=== PATIENT | male | born 1935 | race Caucasian/White ===

== ENCOUNTER 2019-01-04 06:23 | Day surgery (SDC) | payer MEDICARE, OTHER, SELFPAY ==
[2018-12-28 15:10] VITALS: BMI 25.8
[2019-01-04] VITALS (16 sets, daily range): BP systolic 74–171; BP diastolic 38–85; PULSE 45–84; RESP 9–16; TEMP 36.1–36.7; O2SAT 88–97; BMI 25.8
--- NOTE | 2019-01-04 07:41 | PM.HP.1 ---
History of Present Illness Date Patient Seen: 01/04/19 Time Patient Seen: 07:41 Chief complaint: [id number] Hernia Repair Narrative: 83-year-old male who presents with several month history of painful left inguinal mass. The mass is present intermittently and causes him significant pain and discomfort. No pain in the right groin region. No troubles with bowel function or urination. No fever or chills. No nausea or vomiting. No abdominal pain elsewhere. Patient History Medical History Elevated cholesterol (Acute) Hypertension (Acute) Left inguinal hernia (Acute) Surgical History History of right inguinal hernia repair (Acute) History of right inguinal hernia repair (Resolved) Social History household members: spouse Smoking Status: Former smoker alcohol intake: current Family & Social History Social History: household members spouse Tobacco & Substance use: Smoking Status Former smoker alcohol intake current Meds Home Medications Medication Instructions Recorded Confirmed Type benzonatate [Tessalon Perles] 100 mg PO TIDP PRN #30 cap 12/25/17 Rx oseltamivir [Tamiflu] 75 mg OR BID #10 cap 12/25/17 Rx hydrochlorothiazide 25 mg PO DAILY 12/28/18 12/28/18 History losartan 50 mg PO DAILY 12/28/18 12/28/18 History Allergies Allergy/AdvReac Type Severity Reaction Status Date / Time WASP VENOM Allergy Intermediate HIVES Uncoded 03/03/18 12:09 Review of Systems Review of Systems All systems reviewed & are unremarkable except as noted in HPI and below Exam Vital Signs (past 8 hours): - 01/04/19 07:23 Temperature 97.4 F L Pulse Rate 72 Respiratory Rate 15 Blood Pressure 171/85 H Pulse Oximetry 95 Oxygen Delivery Method Room Air Narrative Exam Narrative: Elderly male in no acute distress. Alert oriented x3. is at the bedside Chest clear auscultation Abdomen soft, nondistended, nontender, no masses Extremities show no clubbing or cyanosis Genitourinary examination has not changed since his initial evaluation December 02, 2018. Obviously reducible left inguinal hernias present. Objective Labs Labs: No new laboratory radiographic studies for review since his initial history and physical examination. Assessment & Plan Assessment Narrative: 83-year-old male with reducible with symptomatic left inguinal hernia Plan Narrative: I reiterated recommendation for open left inguinal hernia repair with mesh. Technical details and anticipated recovery were again reviewed. Risks, benefits, and alternatives were explained once again. He agrees to proceed, and consent is placed on the chart. Orders were written. Otherwise his history and physical examination has not changed since December 02, 2018.
--- NOTE | 2019-01-04 07:44 | PM.PREOP ---
Pre-operative Note Interval Note History & Physical reviewed/Exam performed by Physician: Yes Changes to H&P: No H&P completed within 30 days and has changed as indicated here:: Patient seen and examined again today. History and physical examination updated and placed on the chart. No changes noted. Proceed with open left inguinal hernia repair today as planned.
[2019-01-04] MEDS: CEFAZOLIN 2 GM/100 ML FROZ.PIGGY IV (07:55)
[2019-01-04] MEDS: LACTATED RINGERS 1,000 ML 42 ML IV ×2 (08:23→09:20)
--- NOTE | 2019-01-04 08:29 | SUR.OPER ---
Supine on padded OR bed, head on pillow, arms secured on padded arm boards at <90 degrees abduction, legs uncrossed, safety belt at thigh, tape over blanket over lower legs. pillow under knees
[2019-01-04] MEDS: BUPIVACAINE 0.5% (PF) VIAL 30 ML INJ (08:37)
[2019-01-04] MEDS: LIDOCAINE 1% W/EPI INJ 20 ML INJ (08:38)
[2019-01-04] MEDS: CEFAZOLIN 1 GM VIAL IV (08:41)
--- NOTE | 2019-01-04 10:16 | PM.OP.1 ---
Operative Date/Time/Diagnoses Date of procedure: 01/04/19 Time of procedure: 10:16 Pre-op diagnosis: Symptomatic left inguinal hernia Post-op diagnosis: other (Symptomatic left direct and indirect inguinal hernias with sliding component containing sigmoid colon) Procedure & Clinicians Procedure: Open left inguinal hernia repair with mesh Same procedure as scheduled: Yes Indications: 83-year-old male who presented with intermittent painful left inguinal mass over the last several months. Examination and evaluation were consistent with hernia. Open repair with mesh was recommended. Surgeon: Nico Hart Click Yes if Unassisted: Yes Anesthesia Type: General Operative Notes Findings: 1. Large pantaloon hernia left inguinal canal 2. Left indirect inguinal hernia component contained sliding hernia containing sigmoid colon 3. Testicles in normal descended position at the conclusion of the case Closure Type: primary Specimen(s): none sent Prosthetic devices, grafts, tissues, transplants, or devices: Large Pro Loop polypropylene mesh plug and onlay patch placed in left inguinal canal Applied: other (Mesh as above) Estimated Blood Loss (mL): 15 Blood products transfused: none Procedure in detail: After obtaining informed consent the patient was brought to the operating room placed supine on the table. After satisfactory induction of anesthesia the left inguinal region and genitalia were prepped and draped in usual sterile fashion. SCOAP time out was performed per standard protocol. Transverse skin incision was created in the lower aspect of the inguinal canal then infiltrated with a 1 :1 mixture 1% lidocaine with 1:100,000 epinephrine and 0.5% plain Marcaine for postoperative analgesia. Skin incision was created with 10 scalpel blade followed by the Bovie for hemostasis. Dissection proceeded through the subcutaneous tissue to the external oblique fascia. A Weitlaner retractor was used to provide exposure. External oblique fascia was divided in the direction of its fibers with 15 scalpel blade followed by Metzenbaum scissors through the level the external inguinal ring. Edges of the fascia were secured with hemostats. Blunt dissection allowed for identification of the iliopubic tract, conjoined tendon, and rectus fascia. Spermatic cord and adjacent structures including the hernia were encircled bluntly with the surgeon's finger followed by a [place] drain. Meticulous blunt dissection using DeBakey forceps, Metzenbaum scissors, and the Bovie were employed to eventually isolate the indirect and direct hernia sacs as above. Great care was taken avoid injury to the spermatic cord structures. Again, findings are as above. The indirect hernia sac was opened between hemostats at the apex using Metzenbaum scissors and dissection proceeded meticulously in a sharp manner in order to liberate the sliding component of the sigmoid colon which was then reduced back into the peritoneal cavity. Great care was taken to avoid injury to the colon and adjacent structures. Once the colon was adequately reduced the hernia sac was ligated with a pursestring 2 0 silk suture then divided. The residual sac then easily reduced into the abdominal cavity. The direct hernia sac contained significant portions of preperitoneal fat which was divided between hemostats, ligated, and discarded. Two 0 silk ties were used to achieve hemostasis. The direct sac was then reduced as well. Mesh was brought onto the operative field and soaked in Ancef solution. The plug was placed into the internal inguinal ring where it was then secured with interrupted 2 0 Vicryl suture to adjacent cremasteric fibers. The onlay patch was secured in a circumferential fashion with interrupted 0 Tycron sutures. Laterally the mesh was secured to the iliopubic tract while anteriorly was secured to the conjoined tendon. Medially the mesh was secured to the rectus fascia. Tails of the mesh were brought around the spermatic cord and placed deep to the external oblique fascia with a was secured with a single 0 Tycron suture. Great care was taken avoid strangulation of the cord. The defect in the mesh easily admitted the tip of the surgeon's examining finger adjacent to the cord at the conclusion of the case. Wound was irrigated noted to be hemostatic. Spermatic cord was replaced in its usual anatomic position and the external oblique fascia was closed over the cord with running 2 0 Vicryl suture. Subcutaneous tissue was reapproximated with interrupted 3 0 Vicryl suture. Skin was closed in running subcuticular fashion with 4 0 Monocryl suture. Dermal adhesive was applied to the skin. Anesthesia was reversed the patient extubated in the operating room. He was taken recovery in stable condition. Complications: none Condition: stable Disposition: PACU Plan for aftercare: 1. Discharge home 2. Follow up in surgery Clinic in 2 weeks
[2019-01-04] MEDS: OXYCODONE/ACETAMINOPHEN 5/325 TABLET 1 TAB PO (11:22)
--- NOTE | 2019-01-04 14:00 | SUR.PHASEI ---
Late entry: Post op hypotension and bradycardia with O2 sats 88-91% on 5 liters FLOOR NURSE. Patient mostly sleeping and arousable with loud voice. Dr. Mcnulty notified of changes to patient vital signs, no action taken. Continued to monitor until patient more awake. Vital signs improved, patient easily arousable. Sat up, tolerated PO and was medicated with oral pain medication. Stable for transfer to [facility]. Report given.
== END 2019-01-04 12:23 | disposition home or self-care (01) ==
PROVIDERS: Family Provider Family Medicine; PCP Family Medicine; Visit Provider Surgery
PROC: (CPT 49505; principal; 2019-01-04 07:45)
DX: K40.90 Unilateral inguinal hernia, without obstruction or gangrene, not specified as recurrent (principal); K40.30 Unilateral inguinal hernia, with obstruction, without gangrene, not specified as recurrent; E78.00 Pure hypercholesterolemia, unspecified
CPT/HCPCS: 49505; C1781; J0690; J2405; J2704; J3010

== ENCOUNTER 2019-03-18 06:54 | Emergency (ER) | payer MEDICARE, OTHER, SELFPAY ==
[2019-03-18] VITALS (9 sets, daily range): BP systolic 113–156; BP diastolic 57–95; PULSE 56–76; RESP 14–20; TEMP 36.4–36.8; O2SAT 96–100; BMI 25.8
[2019-03-18 07:06] LABS: Add Manual Diff / Slide Review NO; Basophils Absolute Auto 100 /uL (0-100); Basophils Percent Auto 0.9 % (0-2); Eosinophils Absolute Auto 100 /uL (0-450); Eosinophils Percent Auto 1.5 % (2-4); Hematocrit 43.2 % (41-53); Hemoglobin 14.7 g/dL (13.5-17.5); Lymphocytes Absolute Auto 2200 /uL (1100-4500); Mean Corpuscular HGB Conc 34.1 % (30-36); Mean Corpuscular Hemoglobin 29.7 PG (26-34); Mean Corpuscular Volume 87.1 fL (80-100); Monocytes Absolute Auto 700 /uL (0-900); Monocytes Percent Auto 10.7 % (3-14); Neutrophils Absolute Auto 3800 /uL (1500-7000); Neutrophils Percent Auto 54.9 % (50-75); Platelet Count 282 X10^3/uL (150-400); Red Blood Cell Count 4.96 X10^6/uL (4.5-5.9); Red Cell Distribution Width 13.6 % (11.6-14.8); White Blood Cell Count 6.9 X10^3/uL (4.5-11.0)
--- NOTE | 2019-03-18 07:08 | ED.SYNCOPE ---
HPI - Syncope General Chief Complaint: Syncope Stated Complaint: Syncope Time Seen by Provider: 03/18/19 06:54 Source: patient, family and EMS Mode of arrival: EMS Limitations: no limitations History of Present Illness HPI narrative: 83-year-old nonsmoking male presents by EMS for evaluation of a syncopal episode this morning. He has medical history which is rather benign and consists really only of hypertension and occasional constipation. Patient was in his normal state of health yesterday and mowed his lawn without difficulty. He went to bed feeling fine and woke up this morning feeling fine. He and his had a conversation about how she had been feeling, she has an extensive cardiac history including defibrillator and he became worried about her and soon thereafter developed some dizziness, weakness and lightheadedness while walking and started to lower himself to the floor and then had a complete syncopal episode as witnessed by her. He suffered no injury as a consequence. He had no chest pain or palpitations. He did become sweaty, pale and weak as stated. He denies any recent travel, history of cancer or history of blood clots. He was rather quick to wake up and still had some mild symptoms when EMS transported him here but soon rebounded to his baseline MD complaint: loss of consciousness and felt faint Onset (ago): minute(s) Duration of episode: 5 -: minutes(s) Prodromal symptoms: lightheaded, diaphoresis and nausea/vomiting Witnessed: yes - by bystander Context: other Injuries sustained associated with event: none Current symptoms: none Treatments prior to arrival: none Related Data Home Medications Medication Instructions Recorded Confirmed hydrochlorothiazide 25 mg PO DAILY 12/28/18 02/16/19 losartan 50 mg PO DAILY 12/28/18 02/16/19 Previous Rx's Medication Instructions Recorded benzonatate [Tessalon Perles] 100 mg PO TIDP PRN #30 cap 12/25/17 oseltamivir [Tamiflu] 75 mg OR BID #10 cap 12/25/17 docusate sodium [Colace] 100 mg PO BID #14 cap 01/04/19 oxycodone 5 mg PO Q3H PRN #30 tab 01/04/19 sennosides [Senokot] 8.6 mg PO BEDTIME #10 tab 01/04/19 Allergies Allergy/AdvReac Type Severity Reaction Status Date / Time WASP VENOM Allergy Intermediate HIVES Uncoded 03/01/19 09:31 Review of Systems Constitutional Denies chills, Denies fever(s), Denies lethargy and Reports weakness Eyes Denies change in vision, Denies eye discharge, Denies irritation and Denies loss of vision ENT Ears, Nose, Mouth, and Throat: Denies change in voice, Denies neck pain and Denies sore throat Cardiovascular Denies chest pain, Reports syncope, Denies irregular heart rhythm, Denies lightheadedness, Denies palpitations, Denies dyspnea, Denies dyspnea on exertion and Denies orthopnea Respiratory Denies cough, Denies dyspnea, Denies dyspnea on exertion and Denies wheezing Gastrointestinal Gastrointestinal: Denies abdominal pain, Denies change in bowel habits, Denies diarrhea, Denies nausea and Denies vomiting Genitourinary Denies hematuria, Denies flank pain, Denies urinary incontinence and Denies urinary urgency Musculoskeletal Denies neck pain Integumentary/Breasts Denies pruritus, Denies erythema, Denies rash and Denies wounds Neurologic Denies confusion, Reports syncope, Denies loss of vision and Reports weakness Psychiatric Denies anxiety, Denies confusion, Denies depression, Denies homicidal ideation and Denies suicidal ideation Endocrine Denies palpitations Hematologic/Lymphatic Denies easy bruising Allergic/Immunologic Denies wheezing [facility] Medical History Elevated cholesterol (Acute) Hypertension (Acute) Left inguinal hernia (Acute) Surgical History History of right inguinal hernia repair (Acute) History of right inguinal hernia repair (Resolved) Social History household members: spouse Smoking Status: Former smoker alcohol intake: current Social History household members: spouse Smoking Status: Former smoker alcohol intake: current Exam Narrative Exam Narrative: GENERAL: 83-year-old male in no obvious significant distress, alert and oriented x3, GCS 15 HEAD: Atraumatic. Normocephalic. No temporal or scalp tenderness. EYES: Pupils equal round and reactive. Extraocular motions intact. No scleral icterus. No injection or drainage. ENT: Nose without bleeding, purulent drainage or septal hematoma. Throat without erythema, tonsillar hypertrophy or exudate. Uvula midline. Airway patent. NECK: Trachea midline. No JVD or lymphadenopathy. Supple, nontender, no meningeal signs. CARDIOVASCULAR: Regular rate and rhythm without murmurs, gallops, or rubs. RESPIRATORY: Clear to auscultation. Breath sounds equal bilaterally. No wheezes, rales, or rhonchi. GASTROINTESTINAL: Abdomen soft, non-tender, nondistended. No hepato-splenomegaly, or palpable masses. No guarding. EXTREMITIES: No clubbing, cyanosis, or edema. No joint tenderness, effusion, or edema noted. BACK: Nontender without deformity or crepitance. No flank tenderness. NEURO: AOx3. SKIN: No rash or erythema. NIH Stroke Scale 1a. LOC: Patient is alert and keenly responsive (0) 1b. LOC Questions: Patient answers both LOC questions accurately (0) 1c. LOC Commands: Patient performs both tasks correctly (0) 2. Best Gaze: Normal (0) 3. Visual: No visual loss (0) 4. Facial palsy: Normal symmetrical movements (0) 5. Motor arm: No drift (0) 6. Motor leg: No drift (0) 7. Limb ataxia: Absent (0) 8. Sensory: Normal (0) 9. Best language: No aphasia; normal (0) 10. Dysarthria: Normal (0) 11. Extinction and inattention: No abnormality (0) NIHSS: 0 Initial Vital Signs Initial Vital Signs: Vital Signs Pulse Rate 60 03/18/19 06:55 Respiratory Rate 15 03/18/19 06:55 Blood Pressure 142/73 H 03/18/19 06:55 Pulse Oximetry 96 03/18/19 06:55 Course Orders Ordered: ED Orders 03/18/19 06:30 Complete Blood Count AUTO DIFF Stat Comprehensive Metabolic Panel Stat Partial Thromboplastin Time Stat Prothrombin Time INR Stat Troponin I Stat 03/18/19 06:55 EKG-12 Lead Stat 03/18/19 07:01 D Dimer Stat 03/18/19 09:10 Trop I [Troponin I] Stat 03/18/19 09:45 CT angio chest PE protocol Stat Sodium Chloride (Normal Saline 0.9%) 1,000 mls @ 150 mls/hr IV CONT TONY Last Infusion: 03/18/19 11:30 Dose: 0 mls/hr Admin: 03/18/19 07:23 Dose: 150 mls/hr Reevaluation(s) Reevaluation #1: Patient continues to feel well, ambulates to the department without symptoms Reevaluation #2: DDimer came back significantly elevated. PE study ordered Consultations Consultation #1: call to Cardiology. History and physical discussed, as well as newly discovered RBBB. Story sounds largely orthostatic to them. They suggest stopping HCTZ and increasing Losartan to 50mg in morning and 25mg at night. Vital Signs - 8 hr 03/18/19 06:55 03/18/19 07:07 03/18/19 07:21 Temperature 97.6 F Pulse Rate 60 60 Pulse Rate [Orthostatic Lying] Pulse Rate [Orthostatic Standing] Respiratory Rate 15 15 Blood Pressure 142/73 H 142/73 H Blood Pressure [Left Arm] Blood Pressure [Orthostatic Lying] Blood Pressure [Orthostatic Standing] Pulse Oximetry 96 96 03/18/19 07:40 03/18/19 09:00 03/18/19 09:42 Temperature Pulse Rate 56 L 57 L 72 Pulse Rate [Orthostatic Lying] 62 Pulse Rate [Orthostatic Standing] 76 Respiratory Rate 17 20 Blood Pressure Blood Pressure [Left Arm] 142/57 H 136/76 Blood Pressure [Orthostatic Lying] 113/95 H Blood Pressure [Orthostatic Standing] 136/76 Pulse Oximetry 100 99 98 03/18/19 10:41 03/18/19 11:00 Temperature Pulse Rate 60 63 Pulse Rate [Orthostatic Lying] Pulse Rate [Orthostatic Standing] Respiratory Rate 14 18 Blood Pressure Blood Pressure [Left Arm] 149/75 H 145/94 H Blood Pressure [Orthostatic Lying] Blood Pressure [Orthostatic Standing] Pulse Oximetry 97 97 MDM - Syncope Lab Data Result diagrams: 03/18/19 06:30 03/18/19 06:30 Lab Results 03/18/19 03/18/19 03/18/19 Range/Units 06:30 06:30 06:30 WBC 6.9 (4.5-11.0) X10^3/uL RBC 4.96 (4.5-5.9) X10^6/uL Hgb 14.7 (13.5-17.5) g/dL Hct 43.2 (41-53) % MCV 87.1 (80-100) fL MCH 29.7 (26-34) PG MCHC 34.1 (30-36) % RDW 13.6 (11.6-14.8) % Plt Count 282 (150-400) X10^3/uL Neut % (Auto) 54.9 (50-75) % Lymph % (Auto) 32.0 (25-40) % [place] % (Auto) 10.7 (3-14) % Eos % (Auto) 1.5 L (2-4) % Baso % (Auto) 0.9 (0-2) % Neut # (Auto) 3800 (5234-4758) /uL Lymph # (Auto) 2200 (9876-2541) /uL [place] # (Auto) 700 (0-900) /uL Eos # (Auto) 100 (0-450) /uL Baso # (Auto) 100 (0-100) /uL PT 12.1 (10.1-12.7) SECONDS INR 1.1 (0.9-1.3) APTT 18 L (26.4-36.2) SECONDS D-Dimer (<230) ng/mL Sodium 133 L (137-145) mmol/L Potassium 4.1 (3.4-5.1) mmol/L Chloride 97 L (98-107) mmol/L Carbon Dioxide 26 (22-32) mmol/L BUN 22 H (9-20) mg/dL Creatinine 1.10 (0.66-1.25) mg/dL Estimated GFR > 60.0 (>60) mL/min BUN/Creatinine Ratio 20.0 (6-22) Glucose 133 H (80-110) mg/dL Calcium 8.7 (8.4-10.2) mg/dL Total Bilirubin 0.5 (0.2-1.3) mg/dL AST 40 (17-59) IU/L ALT 32 (21-72) IU/L Alkaline Phosphatase 65 (38-126) U/L Troponin I < 0.012 (0.01-0.034) ng/mL Total Protein 6.8 (6.3-8.2) g/dL Albumin 3.8 (3.5-5.0) g/dL Globulin 3.0 (1.7-4.1) g/dL Albumin/Globulin Ratio 1.3 (1.0-2.8) 03/18/19 03/18/19 Range/Units 07:01 09:10 WBC (4.5-11.0) X10^3/uL RBC (4.5-5.9) X10^6/uL Hgb (13.5-17.5) g/dL Hct (41-53) % MCV (80-100) fL MCH (26-34) PG MCHC (30-36) % RDW (11.6-14.8) % Plt Count (150-400) X10^3/uL Neut % (Auto) (50-75) % Lymph % (Auto) (25-40) % [place] % (Auto) (3-14) % Eos % (Auto) (2-4) % Baso % (Auto) (0-2) % Neut # (Auto) (3537-9088) /uL Lymph # (Auto) (7145-0444) /uL [place] # (Auto) (0-900) /uL Eos # (Auto) (0-450) /uL Baso # (Auto) (0-100) /uL PT (10.1-12.7) SECONDS INR (0.9-1.3) APTT (26.4-36.2) SECONDS D-Dimer 5235 H (<230) ng/mL Sodium (137-145) mmol/L Potassium (3.4-5.1) mmol/L Chloride (98-107) mmol/L Carbon Dioxide (22-32) mmol/L BUN (9-20) mg/dL Creatinine (0.66-1.25) mg/dL Estimated GFR (>60) mL/min BUN/Creatinine Ratio (6-22) Glucose (80-110) mg/dL Calcium (8.4-10.2) mg/dL Total Bilirubin (0.2-1.3) mg/dL AST (17-59) IU/L ALT (21-72) IU/L Alkaline Phosphatase (38-126) U/L Troponin I < 0.012 (0.01-0.034) ng/mL Total Protein (6.3-8.2) g/dL Albumin (3.5-5.0) g/dL Globulin (1.7-4.1) g/dL Albumin/Globulin Ratio (1.0-2.8) Urine Dip Bedside Urine Glucose Negative Bedside Urine Bilirubin - Negative Bedside Urine Ketone - Negative Urine Specific [place] 1.015 Bedside Urine Occult Blood - Negative Bedside Urine pH 7.5 Bedside Urine Protein - Negative Bedside Urine Urobilinogen - Negative Bedside Urine Nitrite - Negative Bedside Urine Leukocytes - Negative Esterase MDM Narrative Medical decision making narrative: Multiple etiologies for patient's symptoms considered including: [Dehydration versus orthostasis from medications versus arrhythmia versus myocardial infarction versus pulmonary embolism versus other] Patient's symptoms improved or duration of stay with above-stated therapies. Findings and discharge diagnosis discussed with patient/family followed by verbalization of understanding Return precautions discussed with patient/family whom verbalize understanding. Discharge Plan Departure Patient Disposition: Home Clinical Impression: Syncope due to orthostatic hypotension Instructions: DI for Syncope in Adults (Fainting) Activity Restrictions/Additional Instructions: *You have been diagnosed with [ syncope (passing out) ] *What to do: *Per my conversation please STOP TAKING HYDROCHLOROTHIAZIDE and begin Losartan 50mg in the morning and add an additional 25mg at night *Follow up with your primary care provider in 2-3 days, call for an appointment. Let them know you were seen in the Emergency Department and that we ask that you be seen in follow up *Return to ER if you should have any new, worsening or concerning symptoms Prescriptions: No Action benzonatate [Tessalon Perles] 100 MG capsule 100 mg PO TIDP PRNQty: 30 RF: 0 oseltamivir [Tamiflu] 75 MG capsule 75 mg OR BID Qty: 10 RF: 0 losartan 50 mg Tablet 50 mg PO DAILY RF: 0 hydrochlorothiazide 25 mg Tablet 25 mg PO DAILY RF: 0 sennosides [Senokot] 8.6 mg tablet 8.6 mg PO BEDTIME Qty: 10 RF: 1 docusate sodium [Colace] 100 mg capsule 100 mg PO BID Qty: 14 RF: 1 oxycodone 5 mg tablet 5 mg PO Q3H PRN (Reason: pain) Qty: 30 RF: 0 Referrals: Ronnie Cunha MD [Primary Care Provider] -
[2019-03-18 07:18] LABS: Alanine Aminotransferase 32 IU/L (21-72); Albumin 3.8 g/dL (3.5-5.0); Albumin Globulin Ratio 1.3 (1.0-2.8); Alkaline Phosphatase 65 U/L (38-126); Aspartate Aminotransferase 40 IU/L (17-59); Bilirubin Total 0.5 mg/dL (0.2-1.3); Blood Urea Nitrogen 22 mg/dL (9-20); Calcium 8.7 mg/dL (8.4-10.2); Carbon Dioxide 26 mmol/L (22-32); Chloride 97 mmol/L (98-107); Estimated Glomerular Filt Rate > 60.0 mL/min (>60); Glucose 133 mg/dL (80-110); Potassium 4.1 mmol/L (3.4-5.1); Sodium 133 mmol/L (137-145); Total Protein 6.8 g/dL (6.3-8.2)
[2019-03-18 07:19] LABS: HEMOLYSIS 60 (0-50)
[2019-03-18 07:20] LABS: INR 1.1 (0.9-1.3); Prothrombin Time 12.1 SECONDS (10.1-12.7)
[2019-03-18 07:23] LABS: PTT Partial Thromboplastin Tim 18 SECONDS (26.4-36.2)
[2019-03-18] MEDS: SODIUM CHLORIDE 0.9% 1,000 ML 150 ML IV (07:23)
[2019-03-18 07:30] LABS: Troponin I < 0.012 ng/mL (0.01-0.034)
[2019-03-18 09:33] LABS: D Dimer 5235 ng/mL (<230)
--- NOTE | 2019-03-18 09:45 | DI.CT.S_ITS ---
PROCEDURE: CT ANGIO CHEST PE PROTOCOL INDICATIONS: syncope, unprovoked, critical Ddimer TECHNIQUE: After the administration of intravenous contrast, 2 mm thick sections acquired from the pulmonary apices to the posterior costophrenic angles. 3-dimensional maximum intensity projection (MIP) coronal and sagittal reformats were then acquired through the thorax. For radiation dose reduction, the following was used: automated exposure control, adjustment of mA and/or kV according to patient size. COMPARISON: None. FINDINGS: Image quality: Excellent. Pulmonary arteries: Pulmonary arteries are normal in size, and demonstrate no intraluminal filling defects to suggest central pulmonary embolism. Lungs and pleura: Bilateral lower lobe atelectasis. Lungs are otherwise clear. No pleural effusions or pneumothorax. Central and peripheral airways are patent. Mediastinum: Heart size is normal, without pericardial effusion. There is calcification of the coronary vasculature. No mediastinal or hilar adenopathy. Thoracic aorta is normal in caliber and enhancement. Esophagus is normal in caliber. There is a large hiatal hernia. Bones and chest wall: No suspicious bony lesions. Ribs and thoracic spine appear intact throughout. Thyroid gland demonstrates high density right lobe nodules.. No axillary or supraclavicular adenopathy. Abdomen: Visualized portions of the upper abdomen demonstrate a subcapsular cyst within the anterior spleen measuring 23 mm, as well as scattered hepatic cysts. IMPRESSION: 1. No acute process. No pulmonary embolus. 2. Coronary artery disease. 3. Large hiatal hernia. Dictated by: Briana Haskins M.D. on 03/18/2019 at 10:15 Approved by: Briana Haskins M.D. on 03/18/2019 at 10:19
[2019-03-18 09:54] LABS: Troponin I < 0.012 ng/mL (0.01-0.034)
== END 2019-03-18 11:42 | disposition home or self-care (01) ==
PROVIDERS: Emergency Medicine; Emergency Provider Emergency Medicine; Family Provider Family Medicine; PCP Family Medicine
DX: I95.1 Orthostatic hypotension (principal); R61 Generalized hyperhidrosis; R11.2 Nausea with vomiting, unspecified
CPT/HCPCS: 36415; 36591; 71275; 80053; 81003; 84484; 85025; 85379; 85610; 85730; 93005; 96360; 96361; 99283; 99284; 99285; Q9967

== ENCOUNTER 2019-06-12 07:09 | Observation (INO) | payer MEDICARE, OTHER, SELFPAY ==
[2019-06-12] VITALS (13 sets, daily range): BP systolic 122–149; BP diastolic 64–86; PULSE 51–72; RESP 13–21; TEMP 36.4–36.9; O2SAT 95–100; BMI 25.8
--- NOTE | 2019-06-12 07:13 | DI.RAD.S_ITS ---
PROCEDURE: XR CHEST 1V INDICATIONS: syncope, weakness TECHNIQUE: One view of the chest was acquired. COMPARISON: None. FINDINGS: Surgical changes and devices: None. Lungs and pleura: Lungs are clear. No pleural effusions or pneumothorax. Mediastinum: Mediastinal contours appear normal. Heart size is normal. Bones and chest wall: No suspicious bony lesions. Overlying soft tissues appear unremarkable. IMPRESSION: No acute cardiopulmonary findings. Dictated by: Letty Capellan M.D. on 06/12/2019 at 7:04 Approved by: Letty Capellan M.D. on 06/12/2019 at 7:05
--- NOTE | 2019-06-12 07:25 | ED.SYNCOPE ---
HPI - Syncope General Chief Complaint: Syncope Stated Complaint: Weakness/Syncope Time Seen by Provider: 06/12/19 07:10 Source: patient and EMS Mode of arrival: EMS Limitations: no limitations History of Present Illness HPI narrative: 83-year-old male nonsmoker presents by EMS, with his close in tow, after having an unprovoked syncopal episode this morning. The patient has been in his normal state of health, went to bed feeling fine and awoke feeling fine. He was sitting on the couch and his had looked out the window briefly and heard something that made her turned towards the patient. He was still sitting on the couch but slumped over and completely unresponsive and sweaty. She was unable to wake him up and quickly called 911. On their arrival he was cool and diaphoretic with a blood pressure in the 80s and lethargic. By the time he arrived he was at his baseline with stable vital signs. He denies any prodromal symptoms. He denies any recent nausea, vomiting or diarrhea. He denies any recent medication or dietary change. He has had increasing fatigue since November but denies any exertional dyspnea or chest pain. denies any seizure like activity Related Data Home Medications Medication Instructions Recorded Confirmed losartan 50 mg PO BID 12/28/18 06/12/19 Allergies Allergy/AdvReac Type Severity Reaction Status Date / Time WASP VENOM Allergy Intermediate HIVES Uncoded 01/21/19 09:31 Review of Systems Constitutional Denies chills, Denies fever(s), Denies lethargy and Denies weakness Eyes Denies change in vision, Denies eye discharge, Denies irritation and Denies loss of vision ENT Ears, Nose, Mouth, and Throat: Denies change in voice, Denies neck pain and Denies sore throat Cardiovascular Denies chest pain, Reports diaphoresis, Reports syncope, Denies irregular heart rhythm, Denies lightheadedness, Denies palpitations, Denies dyspnea, Denies dyspnea on exertion and Denies orthopnea Respiratory Denies cough, Denies dyspnea, Denies dyspnea on exertion and Denies wheezing Gastrointestinal Gastrointestinal: Denies abdominal pain, Denies change in bowel habits, Denies diarrhea, Denies nausea and Denies vomiting Genitourinary Denies hematuria, Denies flank pain, Denies urinary incontinence and Denies urinary urgency Musculoskeletal Denies neck pain Integumentary/Breasts Denies pruritus, Denies erythema, Denies rash and Denies wounds Neurologic Denies confusion, Reports syncope, Denies loss of vision and Denies weakness Psychiatric Denies anxiety, Denies confusion, Denies depression, Denies homicidal ideation and Denies suicidal ideation Endocrine Denies palpitations Hematologic/Lymphatic Denies easy bruising Allergic/Immunologic Denies wheezing [facility] Medical History Elevated cholesterol (Acute) Hypertension (Acute) Left inguinal hernia (Acute) Surgical History History of right inguinal hernia repair (Acute) History of right inguinal hernia repair (Resolved) Social History household members: spouse Smoking Status: Former smoker alcohol intake: current Social History household members: spouse Smoking Status: Former smoker alcohol intake: current Exam Narrative Exam Narrative: GENERAL: 83-year-old male appears stated age HEAD: Atraumatic. Normocephalic. No temporal or scalp tenderness. EYES: Pupils equal round and reactive. Extraocular motions intact. No scleral icterus. No injection or drainage. ENT: Nose without bleeding, purulent drainage or septal hematoma. Throat without erythema, tonsillar hypertrophy or exudate. Uvula midline. Airway patent. NECK: Trachea midline. No JVD or lymphadenopathy. Supple, nontender, no meningeal signs. CARDIOVASCULAR: Regular rate and rhythm without murmurs, gallops, or rubs. RESPIRATORY: Clear to auscultation. Breath sounds equal bilaterally. No wheezes, rales, or rhonchi. GASTROINTESTINAL: Abdomen soft, non-tender, nondistended. No hepato-splenomegaly, or palpable masses. No guarding. EXTREMITIES: No clubbing, cyanosis, or edema. No joint tenderness, effusion, or edema noted. BACK: Nontender without deformity or crepitance. No flank tenderness. NEURO: AOx3. SKIN: No rash or erythema. Initial Vital Signs Initial Vital Signs: Vital Signs Temperature 97.5 F L 06/12/19 07:21 Pulse Rate 51 L 06/12/19 07:21 Respiratory Rate 18 06/12/19 07:21 Blood Pressure 122/64 06/12/19 07:21 Pulse Oximetry 95 06/12/19 07:21 Course Orders Ordered: ED Orders 06/12/19 07:13 XR chest 1V Stat 06/12/19 07:16 B Type Natriuretic Peptide Stat Complete Blood Count AUTO DIFF Stat Comprehensive Metabolic Panel Stat Magnesium Stat Prolactin Stat Troponin & CK Cardiac Panel Stat 06/12/19 07:18 EKG-12 Lead Stat 06/12/19 08:28 EKG-12 Lead Stat 06/12/19 09:19 CT head/brain wo con Stat 06/12/19 10:16 Education, smoking cessation ONGOING 06/12/19 10:17 Consult to Discharge Planning Routine Consult to Physical Therapy Evaluate & Treat 06/12/19 10:18 EC echo doppler complete Stat Acetaminophen (Tylenol) 650 mg PO Q6HR PRN PRN Reason: As Needed for Fever/Mild Pain Al Hydrox/Mg Hydrox/Simethicone (Maalox Plus) 30 ml PO Q6HR PRN PRN Reason: Dyspepsia Bisacodyl (Dulcolax) 10 mg NM DAILY PRN PRN Reason: Constipation Calcium Carbonate (Tums) 1,000 mg PO Q4HR PRN PRN Reason: Dyspepsia Enoxaparin Sodium (Lovenox) 40 mg SUBCUT DAILY TONY Magnesium Hydroxide (Milk Of Magnesia) 30 ml PO DAILY PRN PRN Reason: Constipation Ondansetron HCl (Zofran) 4 mg IV Q8HR PRN PRN Reason: Nausea And Vomiting Sodium Chloride (Normal Saline 0.9% Flush) 10 ml IV BID TONY Sodium Chloride (Normal Saline 0.9% Flush) 10 ml IV PRN PRN PRN Reason: Flush Discontinued Medications Sodium Chloride (Normal Saline 0.9%) 1,000 mls @ 1,000 mls/hr IV BOLUS ONE Stop: 06/12/19 08:12 Last Admin: 06/12/19 09:28 Dose: Not Given Consultations Consultation #1: call to cardio at [facility], discussed case. Recommend admission, telemetry, echo. No need for transfer. Patient has an upcoming appointment with Dr. Mehta Time: 08:50 Consultation #2: call to hospitalist, happy to accept Time: 09:48 Vital Signs - 8 hr 06/12/19 07:21 06/12/19 08:27 06/12/19 09:16 Temperature 97.5 F L Pulse Rate 51 L 59 L Pulse Rate [Orthostatic Lying] 53 L Pulse Rate [Orthostatic Sitting] 57 L Respiratory Rate 18 13 Blood Pressure 122/64 Blood Pressure [Left Arm] 137/71 Blood Pressure [Orthostatic Lying] 149/66 H Blood Pressure [Orthostatic Sitting] 139/68 Pulse Oximetry 95 97 06/12/19 09:56 06/12/19 10:26 06/12/19 10:32 Temperature Pulse Rate 62 60 66 Pulse Rate [Orthostatic Lying] Pulse Rate [Orthostatic Sitting] Respiratory Rate 21 13 18 Blood Pressure 139/86 Blood Pressure [Left Arm] 138/73 133/76 Blood Pressure [Orthostatic Lying] Blood Pressure [Orthostatic Sitting] Pulse Oximetry 95 100 97 06/12/19 11:06 06/12/19 11:18 Temperature 98.1 F 98.1 F Pulse Rate 59 L 59 L Pulse Rate [Orthostatic Lying] Pulse Rate [Orthostatic Sitting] Respiratory Rate 18 18 Blood Pressure 145/76 H 145/76 H Blood Pressure [Left Arm] Blood Pressure [Orthostatic Lying] Blood Pressure [Orthostatic Sitting] Pulse Oximetry 95 95 MDM - Syncope Lab Data Result diagrams: 06/12/19 07:16 06/12/19 07:16 Lab Results 06/12/19 06/12/19 Range/Units 07:16 07:16 WBC 7.7 (4.5-11.0) X10^3/uL RBC 4.69 (4.5-5.9) X10^6/uL Hgb 14.1 (13.5-17.5) g/dL Hct 41.4 (41-53) % MCV 88.4 (80-100) fL MCH 30.1 (26-34) PG MCHC 34.1 (30-36) % RDW 13.3 (11.6-14.8) % Plt Count 303 (150-400) X10^3/uL Neut % (Auto) 60.5 (50-75) % Lymph % (Auto) 27.6 (25-40) % Gibson % (Auto) 9.3 (3-14) % Eos % (Auto) 1.5 L (2-4) % Baso % (Auto) 1.1 (0-2) % Neut # (Auto) 4700 (5313-1564) /uL Lymph # (Auto) 2100 (1740-8117) /uL Gibson # (Auto) 700 (0-900) /uL Eos # (Auto) 100 (0-450) /uL Baso # (Auto) 100 (0-100) /uL Sodium 134 L (137-145) mmol/L Potassium 4.0 (3.4-5.1) mmol/L Chloride 104 (98-107) mmol/L Carbon Dioxide 24 (22-32) mmol/L BUN 21 H (9-20) mg/dL Creatinine 1.10 (0.66-1.25) mg/dL Estimated GFR > 60.0 (>60) mL/min BUN/Creatinine Ratio 19.1 (6-22) Glucose 133 H (80-110) mg/dL Calcium 8.4 (8.4-10.2) mg/dL Magnesium 2.0 (1.6-2.3) mg/dL Total Bilirubin 0.5 (0.2-1.3) mg/dL AST 26 (17-59) IU/L ALT 28 (21-72) IU/L Alkaline Phosphatase 70 (38-126) U/L Total Creatine Kinase 50 L (55-170) U/L CK-MB (CK-2) TNP CK-MB (CK-2) Rel Index TNP Troponin I < 0.012 (0.01-0.034) ng/mL B-Natriuretic Peptide < 100 (<100) Total Protein 6.4 (6.3-8.2) g/dL Albumin 3.5 (3.5-5.0) g/dL Globulin 2.9 (1.7-4.1) g/dL Albumin/Globulin Ratio 1.2 (1.0-2.8) Prolactin 45.6 H (3.7-17.9) ng/mL Urine Dip Bedside Urine Glucose Negative Bedside Urine Bilirubin - Negative Bedside Urine Ketone +/- 5 Urine Specific [place] 1.010 Bedside Urine Occult Blood - Negative Bedside Urine pH 8.5 Bedside Urine Protein +/- 15 Bedside Urine Urobilinogen - Negative Bedside Urine Nitrite - Negative Bedside Urine Leukocytes - Negative Esterase Imaging Data Chest x-ray: Radiologist's impression: [address] [address] XRay Report Signed Patient: Jaron Zayas EMR#: [id number] : 7Acct:[id number] Age/Sex: 83 / MDate of Service: 06/12/19 Loc: ED Accession Number: [id number] Procedure: XR chest 1V Ordering Provider: Dayday Epstein D.O. PROCEDURE: XR CHEST 1V INDICATIONS: syncope, weakness TECHNIQUE: One view of the chest was acquired. COMPARISON: None. FINDINGS: Surgical changes and devices: None. Lungs and pleura: Lungs are clear. No pleural effusions or pneumothorax. Mediastinum: Mediastinal contours appear normal. Heart size is normal. Bones and chest wall: No suspicious bony lesions. Overlying soft tissues appear unremarkable. IMPRESSION: No acute cardiopulmonary findings. Dictated by: Letty Capellan M.D. on 06/12/2019 at 7:04 Approved by: Letty Capellan M.D. on 06/12/2019 at 7:05 CT scan - head: Radiologist's impression: Jaron Zayas E 83 M [address] [place] [address] CT Scan Report Signed Patient: Jaron Zayas EMR#: [id number] : 7Acct:[id number] Age/Sex: 83 / MDate of Service: 06/12/19 Loc: ED Accession Number: [id number] Procedure: CT head/brain wo con Ordering Provider: Dayday Epstein D.O. PROCEDURE: CT HEAD/BRAIN WO CON INDICATIONS: unprovoked syncope vs. new onset seizure, mass? TECHNIQUE: Noncontrast 4.5 mm thick angled axial sections acquired from the foramen magnum to the vertex, with coronal and sagittal reformats. For radiation dose reduction, the following was used: automated exposure control, adjustment of mA and/or kV according to patient size. COMPARISON: None. FINDINGS: Image quality: Excellent. CSF spaces: Basal cisterns are patent. No extra-axial fluid collections. The ventricles are symmetric in size and shape. Brain: No intracranial bleeds or masses. There is cerebral volume loss for age, with resultant ventricular and sulcal prominence. There are moderate periventricular and deep white matter chronic small vessel ischemic changes. There are multiple small left chronic appearing basal ganglia lacunar infarcts. There is intracranial internal carotid artery atherosclerosis. Skull and face: Calvarium and visualized facial bones appear intact, without suspicious lesions. Sinuses: Visualized sinuses and mastoids are clear. IMPRESSION: 1. No acute intracranial findings. 2. Findings consistent with chronic microvascular ischemic changes and old lacunar infarcts. Dictated by: Letty Capellan M.D. on 06/12/2019 at 8:42 Approved by: Letty Capellan M.D. on 06/12/2019 at 8:43 ECG Data Attestation: I personally reviewed and interpreted this ECG as follows: Prior ECG tracings: available for review Interpretation: Sinus bradycardia, rate 50. Right bundle branch block, QRS 156, P are 194. No ectopy, unchanged from prior, March 18, 2019 MDM Narrative Medical decision making narrative: 83-year-old male with history of hypertension hyperlipidemia presents with unprovoked syncope. He was diaphoretic with and with hypotension on EMS arrival. Return to baseline by arrival. Seizure considered, but thought less likely given lack of characteristic presentation and normal head CT. Cardiac etiology considered, need admission with workup. Dehydration/orthostasis considered, but thought less likely given lack of provocation. Discharge Plan Departure Patient Disposition: Admitted as Observation Clinical Impression: Atypical syncope Discharge Date/Time: 06/12/19 11:00 Interventions: ED Discharge Assessment Last Done: 06/12/19 10:32 Admit Date/Time: 06/12/19 10:28 Admit Provider: Fariba Huynh
[2019-06-12 07:26] LABS: Add Manual Diff / Slide Review NO; Basophils Absolute Auto 100 /uL (0-100); Basophils Percent Auto 1.1 % (0-2); Eosinophils Absolute Auto 100 /uL (0-450); Eosinophils Percent Auto 1.5 % (2-4); Hematocrit 41.4 % (41-53); Hemoglobin 14.1 g/dL (13.5-17.5); Lymphocytes Absolute Auto 2100 /uL (1100-4500); Lymphocytes Percent Auto 27.6 % (25-40); Mean Corpuscular HGB Conc 34.1 % (30-36); Mean Corpuscular Hemoglobin 30.1 PG (26-34); Mean Corpuscular Volume 88.4 fL (80-100); Monocytes Absolute Auto 700 /uL (0-900); Monocytes Percent Auto 9.3 % (3-14); Neutrophils Absolute Auto 4700 /uL (1500-7000); Neutrophils Percent Auto 60.5 % (50-75); Platelet Count 303 X10^3/uL (150-400); Red Blood Cell Count 4.69 X10^6/uL (4.5-5.9); Red Cell Distribution Width 13.3 % (11.6-14.8); White Blood Cell Count 7.7 X10^3/uL (4.5-11.0)
[2019-06-12 07:39] LABS: Alanine Aminotransferase 28 IU/L (21-72); Albumin 3.5 g/dL (3.5-5.0); Albumin Globulin Ratio 1.2 (1.0-2.8); Alkaline Phosphatase 70 U/L (38-126); Aspartate Aminotransferase 26 IU/L (17-59); BUN Creatinine Ratio 19.1 (6-22); Bilirubin Total 0.5 mg/dL (0.2-1.3); Blood Urea Nitrogen 21 mg/dL (9-20); Calcium 8.4 mg/dL (8.4-10.2); Carbon Dioxide 24 mmol/L (22-32); Chloride 104 mmol/L (98-107); Creatine Kinase 50 U/L (55-170); Estimated Glomerular Filt Rate > 60.0 mL/min (>60); Globulin 2.9 g/dL (1.7-4.1); Glucose 133 mg/dL (80-110); HEMOLYSIS < 15 (0-50); Sodium 134 mmol/L (137-145); Total Protein 6.4 g/dL (6.3-8.2)
[2019-06-12 07:45] LABS: B Type Natriuretic Peptide < 100 (<100)
[2019-06-12 07:51] LABS: Troponin I < 0.012 ng/mL (0.01-0.034)
[2019-06-12 07:55] LABS: Prolactin 45.6 ng/mL (3.7-17.9)
--- NOTE | 2019-06-12 08:12 | ED_ITS ---
HPI - Syncope General Chief Complaint: Syncope Stated Complaint: Weakness/Syncope Time Seen by Provider: 06/12/19 07:10 Source: patient and EMS Mode of arrival: EMS Limitations: no limitations History of Present Illness HPI narrative: 83-year-old male nonsmoker presents by EMS, with his close in tow, after having an unprovoked syncopal episode this morning. The patient has been in his normal state of health, went to bed feeling fine and awoke feeling fine. He was sitting on the couch and his had looked out the window briefly and heard something that made her turned towards the patient. He was still sitting on the couch but slumped over and completely unresponsive and sweaty. She was unable to wake him up and quickly called 911. On their arrival he was cool and diaphoretic with a blood pressure in the 80s and lethargic. By the time he arrived he was at his baseline with stable vital signs. He denies any prodromal symptoms. He denies any recent nausea, vomiting or diarrhea. He denies any recent medication or dietary change. He has had increasing fatigue since November but denies any exertional dyspnea or chest pain. denies any seizure like activity Related Data Home Medications Medication Instructions Recorded Confirmed losartan 50 mg PO BID 12/28/18 06/12/19 Allergies Allergy/AdvReac Type Severity Reaction Status Date / Time WASP VENOM Allergy Intermediate HIVES Uncoded 01/21/19 09:31 Review of Systems Constitutional Denies chills, Denies fever(s), Denies lethargy and Denies weakness Eyes Denies change in vision, Denies eye discharge, Denies irritation and Denies loss of vision ENT Ears, Nose, Mouth, and Throat: Denies change in voice, Denies neck pain and Denies sore throat Cardiovascular Denies chest pain, Reports diaphoresis, Reports syncope, Denies irregular heart rhythm, Denies lightheadedness, Denies palpitations, Denies dyspnea, Denies dysp nichole on exertion and Denies orthopnea Respiratory Denies cough, Denies dyspnea, Denies dyspnea on exertion and Denies wheezing Gastrointestinal Gastrointestinal: Denies abdominal pain, Denies change in bowel habits, Denies diarrhea, Denies nausea and Denies vomiting Genitourinary Denies hematuria, Denies flank pain, Denies urinary incontinence and Denies urinary urgency Musculoskeletal Denies neck pain Integumentary/Breasts Denies pruritus, Denies erythema, Denies rash and Denies wounds Neurologic Denies confusion, Reports syncope, Denies loss of vision and Denies weakness Psychiatric Denies anxiety, Denies confusion, Denies depression, Denies homicidal ideation and Denies suicidal ideation Endocrine Denies palpitations Hematologic/Lymphatic Denies easy bruising Allergic/Immunologic Denies wheezing [facility] Medical History Elevated cholesterol (Acute) Hypertension (Acute) Left inguinal hernia (Acute) Surgical History History of right inguinal hernia repair (Acute) History of right inguinal hernia repair (Resolved) Social History household members: spouse Smoking Status: Former smoker alcohol intake: current Social History household members: spouse Smoking Status: Former smoker alcohol intake: current Exam Narrative Exam Narrative: GENERAL: 83-year-old male appears stated age HEAD: Atraumatic. Normocephalic. No temporal or scalp tenderness. EYES: Pupils equal round and reactive. Extraocular motions intact. No scleral icterus. No injection or drainage. ENT: Nose without bleeding, purulent drainage or septal hematoma. Throat without erythema, tonsillar hypertrophy or exudate. Uvula midline. Airway patent. NECK: Trachea midline. No JVD or lymphadenopathy. Supple, nontender, no meningeal signs. CARDIOVASCULAR: Regular rate and rhythm without murmurs, gallops, or rubs. RESPIRATORY: Clear to auscultation. Breath sounds equal bilaterally. No wheezes, rales, or rhonchi. GASTROINTESTINAL: Abdomen soft, non-tender, nondistended. No hepato- splenomegaly, or palpable masses. No guarding. EXTREMITIES: No clubbing, cyanosis, or edema. No joint tenderness, effusion, or edema noted. BACK: Nontender without deformity or crepitance. No flank tenderness. NEURO: AOx3. SKIN: No rash or erythema. Initial Vital Signs Initial Vital Signs: Vital Signs Temperature 97.5 F L 06/12/19 07:21 Pulse Rate 51 L 06/12/19 07:21 Respiratory Rate 18 06/12/19 07:21 Blood Pressure 122/64 06/12/19 07:21 Pulse Oximetry 95 06/12/19 07:21 Course Orders Ordered: ED Orders 06/12/19 07:13 XR chest 1V Stat 06/12/19 07:16 B Type Natriuretic Peptide Stat Complete Blood Count AUTO DIFF Stat Comprehensive Metabolic Panel Stat Magnesium Stat Prolactin Stat Troponin & CK Cardiac Panel Stat 06/12/19 07:18 EKG-12 Lead Stat 06/12/19 08:28 EKG-12 Lead Stat 06/12/19 09:19 CT head/brain wo con Stat 06/12/19 10:16 Education, smoking cessation ONGOING 06/12/19 10:17 Consult to Discharge Planning Routine Consult to Physical Therapy Evaluate & Treat 06/12/19 10:18 EC echo doppler complete Stat Acetaminophen (Tylenol) 650 mg PO Q6HR PRN PRN Reason: As Needed for Fever/Mild Pain Al Hydrox/Mg Hydrox/Simethicone (Maalox Plus) 30 ml PO Q6HR PRN PRN Reason: Dyspepsia Bisacodyl (Dulcolax) 10 mg OR DAILY PRN PRN Reason: Constipation Calcium Carbonate (Tums) 1,000 mg PO Q4HR PRN PRN Reason: Dyspepsia Enoxaparin Sodium (Lovenox) 40 mg SUBCUT DAILY TONY Magnesium Hydroxide (Milk Of Magnesia) 30 ml PO DAILY PRN PRN Reason: Constipation Ondansetron HCl (Zofran) 4 mg IV Q8HR PRN PRN Reason: Nausea And Vomiting Sodium Chloride (Normal Saline 0.9% Flush) 10 ml IV BID TONY Sodium Chloride (Normal Saline 0.9% Flush) 10 ml IV PRN PRN PRN Reason: Flush Discontinued Medications Sodium Chloride (Normal Saline 0.9%) 1,000 mls @ 1,000 mls/hr IV BOLUS ONE Stop: 06/12/19 08:12 Last Admin: 06/12/19 09:28 Dose: Not Given Consultations Consultation #1: call to cardio at [facility], discussed case. Recommend admission, telemetry, echo. No need for transfer. Patient has an upcoming appointment with Dr. Mehta Time: 08:50 Consultation #2: call to hospitalist, happy to accept Time: 09:48 Vital Signs - 8 hr 06/12/19 07:21 06/12/19 08:27 06/12/19 09:16 Temperature 97.5 F L Pulse Rate 51 L 59 L Pulse Rate [Orthostatic Lying] 53 L Pulse Rate [Orthostatic Sitting] 57 L Respiratory Rate 18 13 Blood Pressure 122/64 Blood Pressure [Left Arm] 137/71 Blood Pressure [Orthostatic Lying] 149/66 H Blood Pressure [Orthostatic Sitting] 139/68 Pulse Oximetry 95 97 06/12/19 09:56 06/12/19 10:26 06/12/19 10:32 Temperature Pulse Rate 62 60 66 Pulse Rate [Orthostatic Lying] Pulse Rate [Orthostatic Sitting] Respiratory Rate 21 13 18 Blood Pressure 139/86 Blood Pressure [Left Arm] 138/73 133/76 Blood Pressure [Orthostatic Lying] Blood Pressure [Orthostatic Sitting] Pulse Oximetry 95 100 97 06/12/19 11:06 06/12/19 11:18 Temperature 98.1 F 98.1 F Pulse Rate 59 L 59 L Pulse Rate [Orthostatic Lying] Pulse Rate [Orthostatic Sitting] Respiratory Rate 18 18 Blood Pressure 145/76 H 145/76 H Blood Pressure [Left Arm] Blood Pressure [Orthostatic Lying] Blood Pressure [Orthostatic Sitting] Pulse Oximetry 95 95 MDM - Syncope Lab Data Result diagrams: 06/12/19 07:16 06/12/19 07:16 Lab Results 06/12/19 06/12/19 Range/Units 07:16 07:16 WBC 7.7 (4.5-11.0) X10^3/uL RBC 4.69 (4.5-5.9) X10^6/uL Hgb 14.1 (13.5-17.5) g/dL Hct 41.4 (41-53) % MCV 88.4 (80-100) fL MCH 30.1 (26-34) PG MCHC 34.1 (30-36) % RDW 13.3 (11.6-14.8) % Plt Count 303 (150-400) X10^3/uL Neut % (Auto) 60.5 (50-75) % Lymph % (Auto) 27.6 (25-40) % [place] % (Auto) 9.3 (3-14) % Eos % (Auto) 1.5 L (2-4) % Baso % (Auto) 1.1 (0-2) % Neut # (Auto) 4700 (3652-2529) /uL Lymph # (Auto) 2100 (0358-8893) /uL [place] # (Auto) 700 (0-900) /uL Eos # (Auto) 100 (0-450) /uL Baso # (Auto) 100 (0-100) /uL Sodium 134 L (137-145) mmol/L Potassium 4.0 (3.4-5.1) mmol/L Chloride 104 (98-107) mmol/L Carbon Dioxide 24 (22-32) mmol/L BUN 21 H (9-20) mg/dL Creatinine 1.10 (0.66-1.25) mg/dL Estimated GFR > 60.0 (>60) mL/min BUN/Creatinine Ratio 19.1 (6-22) Glucose 133 H (80-110) mg/dL Calcium 8.4 (8.4-10.2) mg/dL Magnesium 2.0 (1.6-2.3) mg/dL Total Bilirubin 0.5 (0.2-1.3) mg/dL AST 26 (17-59) IU/L ALT 28 (21-72) IU/L Alkaline Phosphatase 70 (38-126) U/L Total Creatine Kinase 50 L (55-170) U/L CK-MB (CK-2) TNP CK-MB (CK-2) Rel Index TNP Troponin I < 0.012 (0.01-0.034) ng/mL B-Natriuretic Peptide < 100 (<100) Total Protein 6.4 (6.3-8.2) g/dL Albumin 3.5 (3.5-5.0) g/dL Globulin 2.9 (1.7-4.1) g/dL Albumin/Globulin Ratio 1.2 (1.0-2.8) Prolactin 45.6 H (3.7-17.9) ng/mL Urine Dip Bedside Urine Glucose Negative Bedside Urine Bilirubin - Negative Bedside Urine Ketone +/- 5 Urine Specific Ronda 1.010 Bedside Urine Occult Blood - Negative Bedside Urine pH 8.5 Bedside Urine Protein +/- 15 Bedside Urine Urobilinogen - Negative Bedside Urine Nitrite - Negative Bedside Urine Leukocytes - Negative Esterase Imaging Data Chest x-ray: Radiologist's impression: [address] [address] XRay Report Signed Patient: Jaron Zayas EMR#: [id number] : 7Acct:[id number] Age/Sex: 83 / MDate of Service: 06/12/19 Loc: ED Accession Number: [id number] Procedure: XR chest 1V Ordering Provider: Dayday Epstein D.O. PROCEDURE: XR CHEST 1V INDICATIONS: syncope, weakness TECHNIQUE: One view of the chest was acquired. COMPARISON: None. FINDINGS: Surgical changes and devices: None. Lungs and pleura: Lungs are clear. No pleural effusions or pneumothorax. Mediastinum: Mediastinal contours appear normal. Heart size is normal. Bones and chest wall: No suspicious bony lesions. Overlying soft tissues appear unremarkable. IMPRESSION: No acute cardiopulmonary findings. Dictated by: Letty Capellan M.D. on 06/12/2019 at 7:04 Approved by: Letty Capellan M.D. on 06/12/2019 at 7:05 CT scan - head: Radiologist's impression: Jaron Zayas E 83 M 1935 [place] [address] CT Scan Report Signed Patient: Jaron Zayas EMR#: [id number] : 1935cct:[id number] Age/Sex: 83 / MDate of Service: 06/12/19 Loc: ED Accession Number: [id number] Procedure: CT head/brain wo con Ordering Provider: Dayday Epstein D.O. PROCEDURE: CT HEAD/BRAIN WO CON INDICATIONS: unprovoked syncope vs. new onset seizure, mass? TECHNIQUE: Noncontrast 4.5 mm thick angled axial sections acquired from the foramen magnum to the vertex, with coronal and sagittal reformats. For radiation dose reduction, the following was used: automated exposure control, adjustment of mA and/or kV according to patient size. COMPARISON: None. FINDINGS: Image quality: Excellent. CSF spaces: Basal cisterns are patent. No extra-axial fluid collections. The ventricles are symmetric in size and shape. Brain: No intracranial bleeds or masses. There is cerebral volume loss for age, with resultant ventricular and sulcal prominence. There are moderate periventricular and deep white matter chronic small vessel ischemic changes. There are multiple small left chronic appearing basal ganglia lacunar infarcts. There is intracranial internal carotid artery atherosclerosis. Skull and face: Calvarium and visualized facial bones appear intact, without suspicious lesions. Sinuses: Visualized sinuses and mastoids are clear. IMPRESSION: 1. No acute intracranial findings. 2. Findings consistent with chronic microvascular ischemic changes and old lacunar infarcts. Dictated by: Letty Capellan M.D. on 06/12/2019 at 8:42 Approved by: Letty Capellan M.D. on 06/12/2019 at 8:43 ECG Data Attestation: I personally reviewed and interpreted this ECG as follows: Prior ECG tracings: available for review Interpretation: Sinus bradycardia, rate 50. Right bundle branch block, QRS 156, P are 194. No ectopy, unchanged from prior, March 18, 2019 MDM Narrative Medical decision making narrative: 83-year-old male with history of hypertension hyperlipidemia presents with unprovoked syncope. He was diaphoretic with and with hypotension on EMS arrival. Return to baseline by arrival. Seizure considered, but thought less likely given lack of characteristic presentation and normal head CT. Cardiac etiology considered, need admission with workup. Dehydration/orthostasis considered, but thought less likely given lack of provocation. Discharge Plan Departure Patient Disposition: Admitted as Observation Clinical Impression: Atypical syncope Discharge Date/Time: 06/12/19 11:00 Interventions: ED Discharge Assessment Last Done: 06/12/19 10:32 Admit Date/Time: 06/12/19 10:28 Admit Provider: Fariba Huynh
--- NOTE | 2019-06-12 09:19 | DI.CT.S_ITS ---
PROCEDURE: CT HEAD/BRAIN WO CON INDICATIONS: unprovoked syncope vs. new onset seizure, mass? TECHNIQUE: Noncontrast 4.5 mm thick angled axial sections acquired from the foramen magnum to the vertex, with coronal and sagittal reformats. For radiation dose reduction, the following was used: automated exposure control, adjustment of mA and/or kV according to patient size. COMPARISON: None. FINDINGS: Image quality: Excellent. CSF spaces: Basal cisterns are patent. No extra-axial fluid collections. The ventricles are symmetric in size and shape. Brain: No intracranial bleeds or masses. There is cerebral volume loss for age, with resultant ventricular and sulcal prominence. There are moderate periventricular and deep white matter chronic small vessel ischemic changes. There are multiple small left chronic appearing basal ganglia lacunar infarcts. There is intracranial internal carotid artery atherosclerosis. Skull and face: Calvarium and visualized facial bones appear intact, without suspicious lesions. Sinuses: Visualized sinuses and mastoids are clear. IMPRESSION: 1. No acute intracranial findings. 2. Findings consistent with chronic microvascular ischemic changes and old lacunar infarcts. Dictated by: Letty Capellan M.D. on 06/12/2019 at 8:42 Approved by: Letty Capellan M.D. on 06/12/2019 at 8:43
--- NOTE | 2019-06-12 10:18 | DI.ECHO.S_ITS ---
[place] +---------+ Hospital +---------+ : : [address] : : : : [address] : : : : Phone: [phone] Echocardiogram Report + + :Name: LOGAN LYNN Study Date: 06/13/2019 Height: 68 in : :[facility] Weight: 169 lb : : Gender: Male BSA: 1.9 m2 : :: 1935 Age: 83 yrs BP: 145/65 mmHg: :Reason For Study: SYNCOPE : : Performed By: Maxx Nicolas : :Referring: REBEL POLLARD : + + Interpretation Summary Mild concentric left ventricular hypertrophy with ejection fraction 55-60%. Grade I diastolic dysfunction. Mildly dilated left atrium. Mild mitral regurgitation. Mild tricuspid regurgitation. The ascending aorta is at the upper limits of normal in size. Procedure: A two-dimensional transthoracic echocardiogram with color flow and Doppler was performed. The study quality was technically good. There is no prior echocardiogram noted for this patient. The patient was in normal sinus rhythm during the exam. The patient had occasional PACs during the exam. Left Ventricle: The left ventricle is normal in size. There is mild concentric left ventricular hypertrophy. The ejection fraction is estimated to be 55-60%. There are no focal wall motion abnormalities. Diastolic parameters suggest a relaxation abnormality of the left ventricle, consistent with probable normal filling pressures. Right Ventricle: The right ventricle is at the upper limits of normal in size. The right ventricular systolic function is normal. Atria: The left atrium is mildly dilated. Right atrial size is normal. The interatrial septum is intact with no evidence for an atrial septal defect. Mitral Valve: The mitral valve leaflets appear mildly thickened, but open well. There is mild mitral regurgitation. Aortic Valve: The aortic valve is normal in structure and function. The aortic valve is trileaflet. The aortic valve opens well. No aortic regurgitation is present. Tricuspid Valve: The tricuspid valve is normal in structure and function. There is mild tricuspid regurgitation. The right ventricular systolic pressure is estimated to be at least 27 mmHg based on an estimated right atrial pressure of 3 mm Hg. Pulmonic Valve: The pulmonic valve is normal in structure and function. There is trace pulmonic regurgitation. Great Vessels: The aortic root is normal size. The ascending aorta is at the upper limits of normal in size. The pulmonary artery is normal size. The IVC is of normal diameter and collapses greater than 50% with a sniff. This suggests a low right atrial pressure of 3 mm Hg. Pericardium/ Pleura There is no pericardial effusion. There is no pleural effusion. MMode/2D Measurements & Calculations LVIDd: 4.7 cm LVOT diam: 2.4 cm LVIDs: 2.8 cm Ao root diam: 3.4 cm FS: 40.0 % Aortic Jxn: 2.5 cm EPSS: 0.65 cm asc Aorta Diam: 3.5 cm IVSd: 0.91 cm Ao Arch Diam (Prox Trans): 2.7 cm LVPWd: 0.94 cm LV harp. diameter/BSA (cm/m^2): 2.5 LV sys. diameter/BSA (cm/m^2): 1.5 LA dimension: 3.6 cm RA long axis: 5.4 cm LA A2 area: 20.2 cm2 RA area: 17.3 cm2 LA A4 area: 25.4 cm2 RA vol: 47.0 ml LA length (vol): 6.2 cm RA : 24.7 ml/m2 LA vol: 70.0 ml IVC diam: 1.5 cm LA vol index: 36.8 ml/m2 RVD1 (basal): 3.3 cm RVD2 (mid): 4.1 cm Doppler Measurements & Calculations Ao V2 max: 135.7 cm/sec LVOT Max Silverio: 85.1 cm/sec Ao V2 mean: 91.7 cm/sec LV V1 max P.9 mmHg Ao max P.4 mmHg LV V1 VTI: 18.7 cm Ao mean P.7 mmHg DENISE(I,D): 2.5 cm2 Ao V2 VTI: 32.5 cm DENISE(V,D): 2.7 cm2 sev ratio: 0.58 DENISE indexed to BSA (cm^2/m^2): 1.3 MV E max silverio: 44.4 cm/sec TR max silverio: 244.5 cm/sec MV A max silverio: 69.7 cm/sec TR max P.9 mmHg MV E/A: 0.64 PA V2 max: 68.2 cm/sec Med Peak E' Silverio: 2.7 cm/sec PA V2 mean: 50.9 cm/sec E/E' med: 16.5 PA mean P.1 mmHg Lat Peak E' Silverio: 2.7 cm/sec PA pr(Accel): 29.1 mmHg E/E' lat: 16.5 PA Accel Time: 0.11 sec E/e' average: 16.5 MV dec time: 0.27 sec SV(OT): 81.8 ml Electronically signed by: Tyree Isaac on Reading Physician:06/13/2019 01:40 PM
--- NOTE | 2019-06-12 12:46 | PC.NURSE ---
Admit: Arrived to room 205 approx 1100. Able to transfer from stretcher to bed, and from bed to chair (for lunch) without dizziness, lightheadedness, or syncopal episode. Denies chest pain, shortness of breath or palpitations. VSS. Alert and oriented X3. Saline locked in R AC, medic start re-dressed and site flushed well. Tele monitoring ongoing, HRR w/ rate in the mid 60's presently. Lungs CTA. Back to bed after lunch, SCD's to BLE's. Instructed to make sure he calls for staff assist getting uo /OOB. He is going to try to nap for a bit. Call light in reach, bed alarm on.
--- NOTE | 2019-06-12 13:53 | PT.IPTN ---
Physical Therapy Treatment Note M3 PT-IP Subjective Start: 06/12/19 13:52 Freq: NEEDED Status: Active Protocol: Document 06/12/19 13:52 IJS (Rec: 06/12/19 13:53 IJS [id number]) Subjective Physical Therapy Visit Type Notes Per nursing patient has been up several times to the bathroom. Request to wait for evaluation until the morning as he was just admitted today.
--- NOTE | 2019-06-12 17:31 | P.HP_ITS ---
History of Present Illness Date Patient Seen: 06/12/19 Chief complaint: Weakness/Syncope Narrative: Jaron Zayas is an 83-year-old male with a past medical history significant for CAD based on recent CTA, hypertension, hyperlipidemia in a medically treated, short-term memory impairment, probable BPH, and probable MARSHALL not on CPAP who presented via EMS after unprovoked syncopal episode. The patient reports he was at home sitting on the couch when his found him unconscious and slouched over. He recently had a syncopal episode on 03/18/19 that was thought to be related to orthostasis and his hydrochlorothiazide was discontinued and he was discharged home from ER with increased dose of losartan. He had no prodromal symptoms prior to the episode of syncope. He was not bearing down or performing any Valsalva maneuver prior to syncopal episode. He denies headache, lightheadedness or dizziness, palpitations, chest pain, nausea, vomiting, diaphoresis, or any other symptoms leading up to episode. He had no tunnel vision and did not know he was going to pass out. His reports he was very slow to come to and when he awoke he was unaware that he had passed out. We discussed any symptoms leading up to syncopal episode over the last several days or weeks for which the patient mentioned that when he is on his daily walks in the [place] he looks up at a tree he likes to look at and he gets lightheaded or dizzy during extension of neck; he has also noticed he occasionally has trouble saying what he wants to say i.e. expressive aphasia and seems to be occurring more frequently with several times in the last week. He has never had an IN or stroke. He has never had a seizure and his spouse denies convulsions or any seizure like activity. He has noticed increased BPH symptoms including urinary frequency, hesitancy, and weak stream. His reports he has substantially cut back on the amount of his fluid intake due to bothersome quality of urinary frequency. He denies any change in his urine output. He denies dysuria. He has no other complaints and denies headache, lightheadedness or dizziness, vision changes such as double vision or blurry vision, shortness of breath, chest pain, fever, chills, nausea, vomiting, dysuria, diarrhea or constipation. He was admitted for further workup of syncopal episode as this is his 2nd recurrence. PCP is Dr. Dumas at the [facility]. Gear Technician is Dr. Mehta who he was to establish care with tomorrow 06/13. Patient History Medical History (Updated 06/12/19 @ 23:53 by Fariba Huynh DO) BPH (benign prostatic hyperplasia) (Acute) Memory deficit (Acute) Elevated cholesterol (Acute) Hypertension (Acute) Left inguinal hernia (Acute) Surgical History H/O cataract removal with insertion of prosthetic lens (Acute) History of right inguinal hernia repair (Acute) History of right inguinal hernia repair (Resolved) Family History (Updated 06/12/19 @ 23:48 by Fariba Huynh DO) Mother Gall bladder disease Father No problems noted. Brother No problems noted. Social History household members: spouse Smoking Status: Former smoker alcohol intake: current Family & Social History Social History: household members spouse Prior Living Arrangements House Safety & Behavioral: Feels Safe in Current Yes Environment Been Physically Hurt or No Threatened By a Person Suicidal Ideation Description None Suicide Plan Description No Plan Tobacco & Substance use: Smoking Status Never alcohol intake current alcohol intake frequency holiday/special occasion Substance Use Type does not use Patient has been for 59 years. He has 2 sons and 1 daughter who are healthy. 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 Meds Home Medications Medication Instructions Recorded Confirmed Type losartan 50 mg PO BID 12/28/18 06/12/19 History Allergies Allergy/AdvReac Type Severity Reaction Status Date / Time WASP VENOM Allergy Intermediate HIVES Uncoded 01/21/19 09:31 Review of Systems Review of Systems A 10 system comprehensive review of systems was conducted with the patient and found to be negative except as above in the History of Present Illness. Exam Vital Signs (past 8 hours): - 06/12/19 09:56 06/12/19 10:26 06/12/19 10:32 Temperature Pulse Rate 62 60 66 Respiratory Rate 21 13 18 Blood Pressure 139/86 Blood Pressure [Left Arm] 138/73 133/76 Pulse Oximetry 95 100 97 06/12/19 11:06 06/12/19 11:18 06/12/19 15:00 Temperature 98.1 F 98.1 F Pulse Rate 59 L 59 L Respiratory Rate 18 18 Blood Pressure 145/76 H 145/76 H Blood Pressure [Left Arm] Pulse Oximetry 95 95 97 06/12/19 15:15 Temperature 98.4 F Pulse Rate 72 Respiratory Rate 18 Blood Pressure 147/83 H Blood Pressure [Left Arm] Pulse Oximetry 97 Oxygen Delivery Method Room Air Oxygen Flow Rate 0 Narrative Exam Narrative: General: Elderly gentleman lying supine comfortably in bed and in no acute distress, well-developed, well-nourished, mild cognitive impairment with short term memory recall deficit but appropriately interactive. HEENT: Normocephalic, atraumatic. External ears without defect. Pupils equal, oval, and reactive to light and accommodation. Anicteric sclerae, moist conjunctivae, and no lid lag. Oropharynx free of erythema and cobble stoning with moist mucosa. Neck: Appears slightly dry with poor tugor and full range of motion. No jugular venous distension. No bruits. No lymphadenopathy or thyromegaly. Cardiovascular: Regular rate and rhythm without murmurs, rubs, or gallops appreciated. Pulmonary: Clear to auscultation bilaterally without crackles, wheezes, or rhonchi. Normal respiratory effort without use of accessory muscles. Abdomen: Soft, bowel sounds present, nontender, nondistended. No hepatosplenomegaly or masses appreciated. Extremities: No clubbing, cyanosis, or edema. Skin: Normal temperature, poor turgor, and normal texture; no rash, ulcers, or subcutaneous nodules appreciated. Neurological: Cranial nerves grossly intact. Normal muscle strength, tone, and bulk. Reflexes, coordination, and sensory function within normal limits. Cerebellar function intake with finger to nose and heel to paiz. No Babinski. No known gait impairment. No focal neurological deficits. Psychiatric: Normal mood and affect. Alert and oriented to person, place, and time. 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 Objective Labs Result Diagrams: 06/12/19 07:16 06/12/19 07:16 Labs: Laboratory Results - last 24 hr 06/12/19 06/12/19 07:16 07:16 WBC 7.7 RBC 4.69 Hgb 14.1 Hct 41.4 MCV 88.4 MCH 30.1 MCHC 34.1 RDW 13.3 Plt Count 303 Neut % (Auto) 60.5 Lymph % (Auto) 27.6 [place] % (Auto) 9.3 Eos % (Auto) 1.5 L Baso % (Auto) 1.1 Neut # (Auto) 4700 Lymph # (Auto) 2100 [place] # (Auto) 700 Eos # (Auto) 100 Baso # (Auto) 100 Sodium 134 L Potassium 4.0 Chloride 104 Carbon Dioxide 24 BUN 21 H Creatinine 1.10 Estimated GFR > 60.0 BUN/Creatinine Ratio 19.1 Glucose 133 H Calcium 8.4 Magnesium 2.0 Total Bilirubin 0.5 AST 26 ALT 28 Alkaline Phosphatase 70 Total Creatine Kinase 50 L CK-MB (CK-2) TNP CK-MB (CK-2) Rel Index TNP Troponin I < 0.012 B-Natriuretic Peptide < 100 Total Protein 6.4 Albumin 3.5 Globulin 2.9 Albumin/Globulin Ratio 1.2 Prolactin 45.6 H Assessment & Plan Assessment & Plan narrative: Jaron Zayas is an 83-year-old male with a past medical history significant for CAD based on recent CTA, hypertension, hyperlipidemia in a medically treated, short-term memory impairment, probable BPH, and probable MARSHALL not on CPAP who presented via EMS after unprovoked syncopal episode. 1. Acute unprovoked syncopal episode, recurrent, present on admission. Resolved prior to admission. -Patient presented after syncopal episode while sitting on couch at rest. No prodrome. Previous episode of syncope and ER thought to be related to orthostatic hypotension due to hydrochlorothiazide which was discontinued. -Differential diagnosis includes: Neurological versus cardiac versus reflexive syncope. -No focal neurological deficits. No seizure activity or postictal state. Not orthostatsis. -Received 1 L of NS in the ED. Continue normal saline at 100 mL/hr x1 bag as he appears slightly dry. -EKG demonstrated sinus bradycardia with RBBB and no acute ischemic changes. Troponin negative at < 0.012. -Ordered echocardiogram, pending. -Ordered urinalysis, pending. -Continue to monitor closely on telemetry. -Continue to monitor orthostatic blood pressures closely. No orthostasis present during initial evaluation in ED. -Continue to monitor neurological status every 4 hours x 24 hours. -Ordered physical therapy evaluation treatment, pending. 2. Coronary artery disease evident by CTA and likely ASVCD, chronic, present on admission. Possibly active. -Started aspirin 81 mg daily. Patient refused statin therapy in the past due to possible liver injury side effect. Highly recommended statin therapy and discussed the 3 MOA in detail. Ordered fasting lipid panel, pending. -Ordered MR stroke protocol for intermittent and increasing expressive aphasia and lightheadedness with backward extension of neck, pending. Concern for carotid or vertebral artery stenosis or significant cerebral artery stenosis. 3. Hypertension, chronic, present on admission. Stable. -Continue losartan 50 mg twice daily. 4. Hyperlipidemia, chronic, present on admission. Possibly active. -Ordered fasting lipid panel, pending. -Patient refused statin therapy in the past due to possible liver injury side effect. Highly recommended statin therapy and discussed the 3 MOA in detail. 5. Probable BPH, chronic, present on admission. Active. -Patient has chronic urinary frequency, hesitancy, and weak stream. -Patient has been taking Super Beta prostate supplement [id number]. -Patient has not formally been medically treated for BPH which would be r elatively contraindicated for recurrent syncopal episodes. 6. 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 Active. -Patient's spouse reports he snores severely. She denies apneic episodes. -Ordered respiratory therapy evaluation and treatment for CPAP protocol. 7. 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 Stable -Likely vascular in etiology. -MR stroke protocol pending as above. -Ordered occupational therapy for SLUMS evaluation, pending. DVT prophylaxis: Lovenox/SCD's Code status: DNR/DNI Patient is admitted under observation status with expected length of stay less than 2 midnights due to severity of presenting symptoms, risk of adverse event, and complexity of treatment plan. Quality VTE Deep Vein Thrombosis/Pulmonary Embolism Present on Admission: No
[2019-06-12 18:38] LABS: Bacteria Urine None Seen; RBC Urine None Seen (0-5/HPF)
[2019-06-12 18:43] LABS: Appearance Urine UA CLEAR; Bilirubin Urine UA NEGATIVE (NEGATIVE); Color Urine UA YELLOW; Glucose Urine UA NEGATIVE (Negative); Ketones Urine UA TRACE (NEGATIVE); Leukocyte Esterase Urine UA NEGATIVE (NEGATIVE); Nitrite Urine UA NEGATIVE (Negative); Occult Blood Urine UA NEGATIVE (Negative); Protein Urine UA NEGATIVE (Negative); Urobilinogen Urine UA 0.2 E.U./dL (0.2)
[2019-06-12 18:57] LABS: Culture Indicated Urine Cult Not Indicated; Mucus Urine 1+ (Negative); WBC Urine 0-1/HPF (0-5/HPF)
--- NOTE | 2019-06-12 20:20 | DI.MRI.S_ITS ---
PROCEDURE: MR STROKE Pre- and post-contrast brain MRI, non-contrast brain MR angiogram, pre- and postcontrast neck MR angiogram INDICATIONS: expressive aphagia and syncopy episode TECHNIQUE: Brain: Noncontrast axial T1 spin echo, axial T2 fast spin echo, sagittal and axial FLAIR, coronal T2 fast spin echo, axial gradient echo, axial diffusion and ADC through the brain. After the administration of contrast, axial 3D VIBE of the cranial vasculature and brain. Brain MRA: Non-contrast 3-D time of flight MR angiogram, with multiple iphpuet-vxpcvfujq-cubwzjakdd (MIP) reformats performed. Neck MRA: Axial and sagittal TruFISP through the neck. Coronal dynamic MR angiogram during administration of contrast in the arterial and venous phases, with 3-dimenstional ublkelp-dmccxvlxi-ugveetcnob (MIP) reformats constructed from subtraction images. COMPARISON: [facility], CT, CT HEAD/BRAIN WO CON, 06/12/2019, 9:23. FINDINGS: Image quality: Excellent. BRAIN: CSF spaces: Ventricles are normal in size and shape. Basal cisterns are patent. No extra-axial fluid collections. Brain: No intracranial bleeds or mass effects. Mild cerebral loss. There is dzpodtbb-[id number] periventricular white matter chronic small vessel disease changes. 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 Diffusion weighted images show no acute ischemic insults. Brainstem appears normal. Normal intravascular flow voids are present. No abnormal intracranial enhancement. Skull and face: Calvarial marrow signal is normal. Orbits appear normal. Sinuses: Bilateral maxillary sinus mucosal thickening and mucous retention cysts. The mastoids are clear. BRAIN MR ANGIOGRAM: Anterior circulation: Intracranial internal carotid arteries are normal in size and enhancement. The flow within the paired anterior cerebral arteries is normal and symmetric. The flow within the middle cerebral arteries is normal and symmetric. The anterior communicating artery is seen. No stenoses, occlusions, or aneurysms. Posterior circulation: The visualized portions of the vertebral arteries demonstrate normal caliber, and join to form a normal appearing basilar artery. The flow within the posterior cerebral arteries is normal and symmetric. No stenoses, occlusions, or aneurysms. NECK MR ANGIOGRAM: Carotids: Great vessels demonstrate a conventional anatomy as they arise from the aortic arch. The origins of the common carotid arteries appear patent. The calibers and courses of both common carotid arteries are normal. The bifurcation regions appear normal bilaterally. The internal carotid arteries demonstrate normal course and caliber. Posterior circulation: The origins of the vertebral arteries appear patent. More superior portions of both vertebral arteries demonstrate normal course and caliber, and join to form a normal appearing basilar artery. Miscellaneous: Subclavian arteries appear patent. Pre-contrast images through the neck show no soft tissue abnormalities. IMPRESSION: BRAIN MRI: 1. No acute intracranial abnormalities. 2. Multiple foci of old lacunar infarcts in basal ganglia bilaterally. 3. Wzahtrvd-of-nazdmo chronic microvascular ischemic changes. 4. Bilateral maxillary sinus disease. BRAIN MR ANGIOGRAM: 1. No high-grade stenosis or occlusion in anterior circulations. 2. No high-grade stenosis or occlusion in posterior circulations. NECK MR ANGIOGRAM: 1. No high-grade stenosis or occlusion in cervical carotid arteries bilaterally. 2. No high-grade stenosis or occlusion in cervical vertebral arteries bilaterally. Dictated by: Kleber Aguilar M.D. on 06/13/2019 at 14:17 Approved by: Kleber Aguilar M.D. on 06/13/2019 at 14:33
[2019-06-12] MEDS: SODIUM CHLORIDE 0.9% FLUSH 10 ML IV (20:25)
--- NOTE | 2019-06-12 20:31 | PC.NURSE ---
neuro pt able to perform stroke assessment with only difficulty being finding the word for feather. slightly unsteady gait when up to ambulate but strength test is symmetrical and WNL.
--- NOTE | 2019-06-12 23:41 | PC.NURSE ---
Addendum entered by Sdynee Monteiro R.N. 06/13/19 00:13: Most recent telemetry reading is now SR with 1st degree AVB + BBB. Original Note: Patient is alert and oriented except to day of week and year. Breath sounds diminished in right LL but otherwise CTA; denies SOB and RA sat is 95%. HRR; is on telemetry with last recorded reading of SB with rate of 53 on evening shift. Denies nausea. BT present and abdomen is soft. Continent of urine with chronic urgency but denies dysuria or frequency. Able to turn self in bed. SBA to bathroom for safety; denies weakness or unsteadiness. Declines use of SCD's stating they keep him awake; reminded to ankle wave when awake and patient verbalizes understanding of purpose of SCD's and continues to decline. Fall risk score is moderate; bed alarm is on for safety. NIH score is 1 for left LE drift not down to bed. Denies pain.
[2019-06-12] MEDS: SODIUM CHLORIDE 0.9% 1,000 ML 100 ML IV (23:52)
[2019-06-13] VITALS (10 sets, daily range): BP systolic 108–189; BP diastolic 63–105; PULSE 55–69; RESP 17–19; TEMP 36.4–37; O2SAT 94–99
[2019-06-13] MEDS: LOSARTAN 50 MG TABLET PO ×3 (00:20→21:27)
[2019-06-13] MEDS: ASPIRIN EC 81 MG TABLET PO (08:59)
[2019-06-13] MEDS: ENOXAPARIN 40 MG/0.4 ML SYRINGE SUBCUT (09:08)
--- NOTE | 2019-06-13 10:02 | PT.IIE ---
Surgical History (Last Reviewed 06/12/19 @ 23:47 by Fariba Huynh DO) H/O cataract removal with insertion of prosthetic lens (Acute) History of right inguinal hernia repair (Acute) History of right inguinal hernia repair (Resolved) Medical History (Last Updated 06/12/19 @ 23:53 by Fariba Huynh DO) BPH (benign prostatic hyperplasia) (Acute) Memory deficit (Acute) Elevated cholesterol (Acute) Hypertension (Acute) Left inguinal hernia (Acute) Physical Therapy Inpatient Evaluation/Re-Eval M1 PT/OT-IP Prior Functional Status Start: 06/12/19 13:52 Freq: NEEDED Status: Active Protocol: Document 06/13/19 10:02 RS (Rec: 06/13/19 10:30 RS [id number]) Medical Review Prior Functional Status Medical History Reviewed Yes Diet/Fluid Consistency Regular Communication no known deficits Mobility and Gait ind without device Activities of Daily Living and IADL's denies needing help for self- care Prior Functional Level (Other details) takes daily walks Social History Household Members spouse Living Arrangements House Employment Status Retired M2 PT-IP Current Condition Start: 06/12/19 13:52 Freq: NEEDED Status: Active Protocol: Document 06/13/19 10:02 RS (Rec: 06/13/19 10:30 RS [id number]) Physical Therapy Current Condition Current Condition Evaluation Date 06/13/19 Treatment Diagnosis normal mobility despite reports of drop attacks Onset Date 06/11/19 M3 PT-IP Subjective Start: 06/12/19 13:52 Freq: NEEDED Status: Active Protocol: Document 06/13/19 10:02 RS (Rec: 06/13/19 10:30 RS [id number]) Subjective Physical Therapy Visit Type Type Initial Evaluation Visit Start Time 09:10 Visit Stop Time 10:02 Total Visit Minutes 52 Physical Therapy Visit Comments Patient Comments Pt really wants to find out what's causing his symptoms. Patient Goals same as above Therapy Pain Assessment Pain When Pain Assessed At Rest Pain Present Pain Present Denied Pain M4 PT-IP Mobility and Gait Start: 06/12/19 13:52 Freq: NEEDED Status: Active Protocol: Document 06/13/19 10:02 RS (Rec: 06/13/19 10:30 RS [id number]) PT-Bed Mobility Assessment Supine to Sit Supine to Sit Independent Sit to Supine Sit to Supine Independent Scooting Scooting to Edge of Bed Independent Scooting Up and Down in Bed Independent PT-Transfer Assessment Sit to and From Stand Sit to and from Stand Independent Equipment Transfer Assistive Device None Transfers Transfer Destination Bed Chair Transfer Technique walked Transfer Ability Level of Assist Independent Comments Mobility Comments Pt is completely independent for bed mobility and transfers , no occurence of any neurological changes at any point. Gait Assessment Gait Gait Assistance Required: Independent Distance (Feet) 200 Assistive Devices Assistive Device None Gait Deviations General Gait Pattern Within Normal Limits Comments Gait Comments Pt is completely indpendent with gait on level surfaces, no neurological changes at any point. Stair Climbing Assessment Evaluation Level of Assist On Stairs Independent Devices Stair Climbing Assistive Devices Left Railing Technique/Endurance Stair Climbing Direction Ascend and Descend Stair Climbing Technique Step Over Step PT-Balance Assessment Sitting Balance and Reactions Static Sitting Balance Ability Normal Dynamic Sitting Balance Ability Normal Standing Balance and Reactions Static Standing Balance Ability Normal Dynamic Standing Balance Ability Good Device Used none Functional Assessments Functional Tests Dynamic Gait Index M5 PT-IP Objective Assessments Start: 06/12/19 13:52 Freq: NEEDED Status: Active Protocol: Document 06/13/19 10:02 (Rec: 06/13/19 10:30 [id number]) Orientation Orientation/Cognition Level of Alertness Alert Orientation Name Age Birthday Month Date Year Day of Week Place Situation Language Function Ability No Deficits Noted Safety Awareness Understands Safety Issues Comments Pt did have a little intermittent difficulty following seemingly simple directions as session progressed (needed extra cues) . Gross Range of Motion Upper Extremity ROM Assessment Within Functional Limits Lower Extremity ROM Assessment Within Functional Limits Strength Upper Extremity Strength Assessment Within Functional Limits Lower Extremity Strength Assessment Within Functional Limits Other Assessments Other Other Assessments VBI testing performed in sitting - unable to elicit any symptoms with end-range extension, R/L rotation, or ext with either R/L rotation. M6 PT-IP Treatment Start: 06/12/19 13:52 Freq: NEEDED Status: Active Protocol: Document 06/13/19 10:02 RS (Rec: 06/13/19 10:30 [id number]) Physical Therapy Treatment Education Education Provided Safety Other Treatments Other Treatment Performed Pt/ educated on importance of not staying in end-range cervical positions for any length of time and instructed on alternatives/modifications that can be used instead. M7 PT-IP Assessment and Plan Start: 06/12/19 13:52 Freq: NEEDED Status: Active Protocol: Document 06/13/19 10:02 RS (Rec: 06/13/19 10:30 RS [id number]) PT Summary Assessment and Plan Potential Rehabilitation Potential Good Status of Condition at Evaluation Evolving Summary Progress Towards Goals Safe For Discharge Assessment Summary Pt presents to hospital with reports of dizziness and syncope with variable onsets ( sometimes while looking up, othertimes insidious onset in neutral). During PT session pt demonstrated completely independent mobility even when challenged with head turns and higher level balance during dynamic gait index testing (scored 22/24). VBI testing was performed in sitting and was completely negative. Pt did need extra cues at times during the session, but reports there is some level of baseline cognitive decline. Patient will be safe to discharge home with once medically cleared to do so, but does not have any acute or follow-up therapy needs. Acute PT will sign off. Frequency of Treatment Frequency Of Treatment Discharge Recommendations To Nursing Amount of Assist Needed Independent Discharge Recommendations PT Discharge Recommendations Home
--- NOTE | 2019-06-13 10:25 | PC.NURSE ---
Day shift: Pt off unit for MRI then echo cardio for approx 1.5 hours.
--- NOTE | 2019-06-13 11:51 | PC.NURSE ---
Day shift: Pt back on unit at this time. 1145.
--- NOTE | 2019-06-13 12:46 | PM.PN.1 ---
Subjective Date Patient Seen: 06/13/19 Interval history: Jaron Zayas is an 83-year-old male with a past medical history significant for CAD based on recent CTA, hypertension, hyperlipidemia in a medically treated, short-term memory impairment, probable BPH, and probable MARSHALL not on CPAP who presented via EMS after unprovoked syncopal episode. The patient is resting in bed comfortably. He has no complaints and is eager to go home. He denies headache, palpitations, lightheadedness or dizziness, shortness of breath, chest pain, abdominal pain, nausea, vomiting, fever, chills, dysuria, diarrhea or constipation. He is voiding and eliminating without difficulty. He is up ambulating without assistance. Physical therapy and occupational therapy evaluated patient and did not perceive any significant neurological deficit but mild cognitive impairment with SLUMS score [address] . Exam Vital Signs (past 8 hours): - 06/13/19 12:00 06/13/19 15:00 06/13/19 15:56 Temperature 98.3 F 97.6 F Pulse Rate 55 L 58 L Pulse Rate [Orthostatic Lying] Pulse Rate [Orthostatic Sitting] Pulse Rate [Orthostatic Standing] Respiratory Rate 17 18 Blood Pressure 164/83 H 183/105 H Blood Pressure [Orthostatic Lying] Blood Pressure [Orthostatic Sitting] Blood Pressure [Orthostatic Standing] Pulse Oximetry 98 99 98 06/13/19 16:04 Temperature Pulse Rate Pulse Rate [Orthostatic Lying] 56 L Pulse Rate [Orthostatic Sitting] 56 L Pulse Rate [Orthostatic Standing] 60 Respiratory Rate Blood Pressure Blood Pressure [Orthostatic Lying] 189/94 H Blood Pressure [Orthostatic Sitting] 176/96 H Blood Pressure [Orthostatic Standing] 172/96 H Pulse Oximetry Oxygen Delivery Method Room Air Oxygen Flow Rate 0 Narrative Exam Narrative: General: Elderly gentleman lying supine comfortably in bed and in no acute distress, well-developed, well-nourished, mild cognitive impairment with short term memory recall deficit but appropriately interactive. HEENT: Normocephalic, atraumatic. External ears without defect. Pupils equal, oval, and reactive to light and accommodation. Anicteric sclerae, moist conjunctivae, and no lid lag. Oropharynx free of erythema and cobble stoning with moist mucosa. Neck: Appears slightly dry with poor tugor and full range of motion. No jugular venous distension. No bruits. No lymphadenopathy or thyromegaly. Cardiovascular: Regular rate and rhythm without murmurs, rubs, or gallops appreciated. Pulmonary: Clear to auscultation bilaterally without crackles, wheezes, or rhonchi. Normal respiratory effort without use of accessory muscles. Abdomen: Soft, bowel sounds present, nontender, nondistended. No hepatosplenomegaly or masses appreciated. Extremities: No clubbing, cyanosis, or edema. Skin: Normal temperature, poor turgor, and normal texture; no rash, ulcers, or subcutaneous nodules appreciated. Neurological: Cranial nerves grossly intact. Normal muscle strength, tone, and bulk. Reflexes, coordination, and sensory function within normal limits. Cerebellar function intake with finger to nose and heel to paiz. No Babinski. No known gait impairment. No focal neurological deficits. Psychiatric: Normal mood and affect. Alert and oriented to person, place, and time. 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 Objective Labs Result Diagrams: 06/12/19 07:16 06/12/19 07:16 Labs: Laboratory Results - last 24 hr 06/12/19 18:17 Urine RBC None seen Urine WBC 0-1/hpf Urine Bacteria None seen Urine Mucus 1+ H Ur Culture Indicated? Cult not indicated Assessment & Plan Assessment & Plan narrative: Jaron Zayas is an 83-year-old male with a past medical history significant for CAD based on recent CTA, hypertension, hyperlipidemia in a medically treated, short-term memory impairment, probable BPH, and probable MARSHALL not on CPAP who presented via EMS after unprovoked syncopal episode. 1. Acute unprovoked syncopal episode, recurrent, present on admission. Resolved prior to admission. -Patient presented after syncopal episode while sitting on couch at rest. No prodrome. Previous episode of syncope in ER thought to be related to orthostatic hypotension due to hydrochlorothiazide which was discontinued. -Differential diagnosis includes: Neurological versus cardiac versus reflexive syncope. -No focal neurological deficits. No seizure activity or postictal state. No orthostatsis. -Received 1 L of NS in the ED. Continued normal saline at 100 mL/hr x1 bag. -EKG demonstrated sinus bradycardia with RBBB and no acute ischemic changes. Troponin negative at < 0.012. -Echocardiogram demonstrated mild concentric LVH with EF 55-60, grade 1 diastolic dysfunction, mild dilated left atrium, mild mitral regurgitation, mild tricuspid regurgitation, ascending aorta is upper limits of normal in size. -Urinalysis performed and does not appear to be infected. -Continue to monitor closely on telemetry. High concern for arrhythmia such as atrial fibrillation which would put him at a pre disposition for VTE and account for bilateral CVA. -Continue to monitor orthostatic blood pressures every shift. No orthostasis present during initial evaluation in ED. -Continue to monitor neurological status every 4 hours x 24 hours. -Continue physical, occupational and speech therapy evaluation and treatment. 2. 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 Possibly active. -Continue aspirin 81 mg daily and added Plavix 75 mg daily for stroke prevention. Patient initially refused statin therapy in the past due to possible liver injury side effect. Highly recommended statin therapy and discussed the 3 MOA in detail. Patient is now amenable to low-dose rosuvastatin 5 mg daily at bedtime. Recommend close monitoring of LFTs and myopathy in outpatient setting. -Risk stratify and ordered hemoglobin A1c and fasting lipid panel, pending. -MR stroke protocol demonstrated multiple foci of old lacunar infarcts in basal ganglia bilaterally and [id number] chronic microvascular ischemic changes. No high-grade stenosis or occlusion in cerebral or neck arteries. High concern for arrhythmia such as atrial fibrillation which would put him at a pre disposition for VTE and account for bilateral CVA. If evidence of arrhythmia will start patient on anticoagulation instead of dual anti-platelet therapy. 3. Hypertension, chronic, present on admission. Stable. -Continue losartan 50 mg twice daily. Patient continues to be increasingly hypertensive and added amlodipine 10 mg daily in addition to losartan. 4. Hyperlipidemia, chronic, present on admission. Possibly active. -Ordered fasting lipid panel, pending. -Patient refused statin therapy in the past due to possible liver injury side effect. Highly recommended statin therapy and discussed the 3 MOA in detail. Patient is now amenable to low-dose rosuvastatin 5 mg daily at bedtime. Recommend close monitoring of LFTs and myopathy in outpatient setting. 5. Probable BPH, chronic, present on admission. Active. -Patient has chronic urinary frequency, hesitancy, and weak stream. -Patient has been taking Super Beta prostate supplement [id number]. -Patient has not formally been medically treated for BPH which would be relatively contraindicated in context of recurrent syncopal episodes. 6. 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 Active. -Patient's spouse reports he snores severely. She denies apneic episodes. -Ordered respiratory therapy evaluation and treatment for CPAP protocol. 7. 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 Stable. -Vascular in etiology and likely related to bilateral CVA's. -MR stroke protocol as above. -SLUMS 24 and DVT prophylaxis: Lovenox/SCD's Code status: DNR/DNI Disposition: Patient likely to discharge tomorrow once blood pressure is better controlled and he is evaluated by speech therapy. Quality VTE Deep Vein Thrombosis/Pulmonary Embolism Present on Admission: No
--- NOTE | 2019-06-13 13:18 | CM.DANOTE ---
Addendum entered by Kralee Cotter LPN 06/13/19 14:57: Met as planned with pt and his . Introduced self and role. PT worked with PT today and was cleared for home setting as far as mobility goes.She noted that he was at his prior level of community ambulator without assistive device. She did advise him on way to avoid end range cervical extension. Pt confirms his PCP is Dr. Dumas: at the [facility]. Pt is very eager for here if he can go home today and waiting for Dr. Huynh to go over results of MRI. These are now available and JALEN Prescott has alerted Dr. Huynh to same. P: follow prn. Anticipate pt will be d/c'd today with outpt followup. His is poised to drive him home. Original Note: Discharge Planning/Care Management DCP: assessment: case received, EMR reviewed. Discussed in Team Rounds. Pt is an 83 year old male who admitted yesterday to care of hospitalist team. PCP: not listed...will follow up with pt Payer: Medicare and [employer]. Admission status: : in review. At time of Team Rounds Dr. Huynh stated that pt was admitted under OBS but that this may change. In review: per UR JALEN Godoy. Pt has been scheduled to see shank maker Dr. Mehta this morning at 0800 as a new patient: Dr. Huynh has requested that the LITERACY COACH call his clinic with update re hospital stay. Went to check in with pt after Rounds but he was off floor for MRI and ECHO was planned. P: check in to meet pt and follow for d/c issues and options as these arise. Dr. Huynh indicated in Rounds that is tests are - she will d/c pt to further outpt followup. If not, she may consult with cardiology. Advanced directive, confirm from FAMILY Start: 06/12/19 11:30 Freq: Q24H Status: Active Protocol: Document 06/13/19 11:52 YAD (Rec: 06/13/19 11:54 YAD [id number]) Advance Directive, confirm on record Time 11:52 Person contacted Patient Copy received No CM Discharge Assessment Start: 06/13/19 13:15 Freq: Status: Active Protocol: Document 06/13/19 13:16 ITV (Rec: 06/13/19 13:18 ITV [id number]) Discharge Planning Assessment Advance Directives? Yes Advance Directives on File No History Provided By Patient Medical Record Prior Living Arrangements House Household Members spouse Is patient alert and oriented? Yes: ? of mild cognitive impairment per Dr. Huynh Review Status In Process
--- NOTE | 2019-06-13 15:14 | OT.IP.EVAL ---
Past Medical History (Last Updated 06/12/19 @ 23:53 by Fariba Huynh DO) BPH (benign prostatic hyperplasia) (Acute) Memory deficit (Acute) Elevated cholesterol (Acute) Hypertension (Acute) Left inguinal hernia (Acute) Surgical History (Last Reviewed 06/12/19 @ 23:47 by Fariba Huynh DO) H/O cataract removal with insertion of prosthetic lens (Acute) History of right inguinal hernia repair (Acute) History of right inguinal hernia repair (Resolved) Occupational Therapy Inpatient Evaluation/Re-Eval M1 PT/OT-IP Prior Functional Status Start: 06/13/19 14:41 Freq: NEEDED Status: Active Protocol: Document 06/13/19 14:00 [facility] (Rec: 06/13/19 15:13 [facility] [id number]) Medical Review Prior Functional Status Medical History Reviewed Yes Diet/Fluid Consistency Regular Communication no known deficits Mobility and Gait ind without device Activities of Daily Living and IADL's denies needing help for self- care Prior Functional Level (Other details) takes daily walks Social History Household Members spouse Living Arrangements House Number of Stairs To Enter/Railing? No steps to enter. Home Environment Standard Height Toilet Walk in Shower Built-In Shower Seat Home Equipment Grab Bars Near Toilet Grab Bars In Shower Employment Status Retired M2 OT-IP Current Condition Start: 06/13/19 14:41 Freq: Status: Active Protocol: Document 06/13/19 14:00 [facility] (Rec: 06/13/19 15:13 [facility] [id number]) Occupational Therapy Current Condition Current Condition Evaluation Date 06/13/19 Treatment Diagnosis Syncopal episode Diagnosis Onset Date 06/12/19 Weight Bearing Status Weight Bearing Status Weight Bear as Tolerated M3 OT- IP Subjective and Pain Start: 06/13/19 14:41 Freq: Status: Active Protocol: Document 06/13/19 14:00 [facility] (Rec: 06/13/19 15:13 [facility] [id number]) OT- Subjective Occupational Therapy Visit Type Type Initial Evaluation Visit Start Time 13:30 Visit Stop Time 14:10 Total Visit Minutes 40 Occupational Therapy Visit Comments Patient Comments Pt agreeable to OT eval with emphasis on cognitive assessments. Patient/Caregiver Goals Pt wanting to go home. OT Pain Assessment Pain When Pain Assessed At Rest Pain Present Pain Present Denied Pain M5 OT- IP IADL's Start: 06/13/19 14:41 Freq: Status: Active Protocol: Document 06/13/19 14:00 [facility] (Rec: 06/13/19 15:13 [facility] [id number]) OT-Instrumental Activities of Daily Living Home Safety Awareness Home Safety Comments Pt states does all the bills at home. Medication Management Medication Management No Deficits Identified Money Management Money Management Caregiver Provides Assistance Landcare Facilitator Landcare Facilitator Comments Pt states does chores at home including yard work outside. Pt states recently fall over his weed eater but able to get back up. Driving Driving Comments Pt states still drives. M6 OT- IP Functional Cognition Start: 06/13/19 14:41 Freq: Status: Active Protocol: Document 06/13/19 14:00 [facility] (Rec: 06/13/19 15:13 [facility] [id number]) Cognitive Factors Limiting Selfcare Function Cognitive Ability Level of Alertness Alert Patient Orientation Name Age Birthday Month Date Year Day of Week Place Situation Attention Span Ability Capable of Focused Attention Capable of Sustained Attention Ability to Follow Commands Able to Follow One Step Commands Memory Description Short Term Impaired Working Impaired Safety Awareness Underestimates Need for Assistance Problem Solving Ability Needs Assist to Identify Solutions Executive Function Ability Unable to Filter Distractions Unable to Remember Details Cognitive Tests SLUMS Pt scored 24/30 which normal score for pt would be 27/30. Pt's score implies mild cognitive impairments. Pt having most difficulty with short term memory only able to recall 2 of 5 words, only able to name 12 animals in 1 minute and even repeating animals already named, pt able to get 3/4 questions right from paragraph read. ACL Pt scored 4.4 out of 6.0, which implies lives with someone who does a daily check on the environment and removes any safety hazzards and solves any new problems. Daily food planning, medications provided , and financial institution vice president needed. A score of 5.6 or higher indicates safe driving. Cognitive Comments Cognitive Assessment Comments Pt states still driving and even after doing cognitive assessment still feels that he can drive. Pt not able to complete [place] Making Part B, not able to recall directions and too distracted to complete drawing from number to letter . [place] Making Part B assesses mental flexibility, executive problem solving, visual attention, and a score of greater than 180 per [employer] implies someone greater chance to get into a car accident. Highly suggested no driving at this time, physician notified of results. Pt having word finding difficulties, but admits has gradually gotten worse and has to write things down often. OT- Vision and Hearing OT- Hearing Assessment OT- Hearing Assessment Hearing Impaired OT- Vision Assessment Visual Acuity Glasses All The Time Vision Assessment Comments Pt's pupils irregular shape, pt states due to cataract surgery. Able to read clock correctly and intact for visual layton. M7 OT- IP Mobility and Balance Start: 06/13/19 14:41 Freq: Status: Active Protocol: Document 06/13/19 14:00 [facility] (Rec: 06/13/19 15:13 [facility] [id number]) OT- Bed Mobility Assessment Rolling Type of Rolling Roll to Left Supine to Sit Supine to Sit Assist Independent Sit to Supine Sit to Supine Assist Independent Scooting Scooting to Edge of Bed Independent OT-Transfer Assessment Sit to and From Stand Sit to and from Stand Independent Transfers Transfer Ability Standby Assistance Technique Transfer Destination Bed Comments Mobility Comments Pt independent with bed mobility and able to walk out to the nursing stations with distant supervision. OT- Balance Assessment Sitting Balance and Reactions Static Sitting Balance Ability Normal Standing Balance and Reactions Static Standing Balance Ability Good Comments Other Balance Tests/Deviations/Treatment While testing for BUE : strength, pt tends to lean back into posterior tilt with slight lateral lean to the left. To assess higher level balance tomorrow . M8 OT- IP Objective Assessments Start: 06/13/19 14:41 Freq: Status: Active Protocol: Document 06/13/19 14:00 [facility] (Rec: 06/13/19 15:13 [facility] [id number]) OT Gross Range of Motion Upper Extremity Range of Motion Assessment Within Functional Limits OT Strength Comments Strength Comments 4/5 BUE OT- Coordination Assessment Upper Extremity Finger to Nose Test Within Functional Limits OT-Muscle Tone Assessment Muscle Tone WNL Yes M9 OT- IP Assessment and Plan Start: 06/13/19 14:41 Freq: Status: Active Protocol: Document 06/13/19 14:00 [facility] (Rec: 06/13/19 15:13 [facility] [id number]) OT Summary Assessment and Plan Potential Rehabilitation Potential Good Analytic Complexity at Evaluation Low Summary OT Impairments Functional Cognition Functional Mobility Bathing Progress Towards Goals Slow Progress due to Medical Issues Slow Progress due to Cognition Assessment Summary Pt low complexity and per pt feels like he is at his baseline, will have to confer to pt's for cognitive needs as currently suggested no driving at this time as pt having difficulty with short term memory and executive thinking and mental flexibility. Recommend home with and assist. Pending whether cogntion is baseline or not, may benefit from outpt HEALTH NURSE versus OT for memory and problem solving. Goals Dressing Goal Independent Bathing Goal Standby Assistance Shower Transfer Goal Independent Patient/Caregiver Education Goal Caregiver Independent Assisting Patient Days to Meet Goals 3 Frequency of Treatment Frequency Of Treatment Once a Day Treatment Plan OT Treatment Plan ADL Training Functional Cognition Training Functional Mobility Patient/Family Education Discharge Planning Other Treatment Recommendations and Next shower Treatment Focus Discharge Recommendations OT Discharge Recommendations Home with Assistance Other Discharge Recommendations Either outpt HEALTH NURSE or OT pending what pt's states if pt at baseline level.
[2019-06-13] MEDS: AMLODIPINE 5 MG TABLET 10 MG PO (19:34)
[2019-06-13] MEDS: CLOPIDOGREL 75 MG TABLET PO (19:34)
--- NOTE | 2019-06-13 20:34 | RT ---
ordered a cpap oren protocol and discussed this with patient. I talked to patient about setting him up on a cpap and explained the importance of using the cpap. Patient refused cpap treatment.
[2019-06-13] MEDS: ROSUVASTATIN 10 MG TABLET 5 MG PO (21:27)
[2019-06-13] MEDS: SODIUM CHLORIDE 0.9% FLUSH 10 ML IV (21:28)
--- NOTE | 2019-06-13 22:20 | PC.NURSE ---
A&O X3 with mild confusion, (patient came in hallway to look for towel in another room's cabinet) and anxious to d/c; BP elevated during this unsettled period with SBP into 180s; @ 2000, BP 151/88, Tele SR, BBB; O2 RA=99%, ls clear; patient denies dizziness with standing; Orthostatic BP: lying 189/94, sitting 176/90, standing 172/96
[2019-06-14 01:00] VITALS: BP 131/90; BP 151/93; BP 168/89; PULSE 63; PULSE 80
--- NOTE | 2019-06-14 01:26 | PC.NURSE ---
Addendum entered by Sydnee Monteiro R.N. 06/14/19 06:03: Patient has been impulsive all night. Does not remember to call for assistance and gets out of bed for a variety of reasons: toileting, having to check on my clothes etc. Patient now expressing unhappiness with having bed alarm on stating he is being falsely imprisoned. Had discussion with him about fall risk protocol and that bed alarm does not prevent him from getting out of bed but is so that staff is alerted to him getting up so that we can come and assist in order to keep him safe from falling. Patient listens but continues to disagree and stating I'm just letting you know that this is just the start of it; there may be legal proceedings. Further states he did not agree to be here so reminded why he was brought to ER and that MD felt he needed to be admitted and he and/or his decision maker would have agreed to admission at that time. States he did not agree to that. Patient calm throughout conversation but not accepting of RN's information. Coordinator, Bob, informed of conversation. Original Note: Patient initially did not recognize this RN who is his neighbor; after being told my name he then verbalized recognition. Is forgetful but otherwise oriented tonight. Breath sounds still diminished in right LL with RA sat of 96%. BP currently 168/89 with drop down to 131/90 from lying to standing. Is on telemetry with recording of SR-BBB at 0000. Denies nausea. BT present and abdomen is soft. Turns self in bed. Does not remember to call for assistance and reports 1 fall in past 3 months; impulsive and bed alarm is activated. Refusing to wear SCD's. Denies dysuria, frequency or urgency. Denies pain.
[2019-06-14 03:27] VITALS: BP 160/82; PULSE 65; RESP 20; TEMP 36.3; O2SAT 97
[2019-06-14 05:50] LABS: Add Manual Diff / Slide Review NO; Basophils Absolute Auto 100 /uL (0-100); Eosinophils Absolute Auto 100 /uL (0-450); Eosinophils Percent Auto 1.2 % (2-4); Hematocrit 43.9 % (41-53); Hemoglobin 15.2 g/dL (13.5-17.5); Lymphocytes Absolute Auto 1800 /uL (1100-4500); Lymphocytes Percent Auto 26.5 % (25-40); Mean Corpuscular HGB Conc 34.6 % (30-36); Mean Corpuscular Volume 86.8 fL (80-100); Monocytes Absolute Auto 500 /uL (0-900); Monocytes Percent Auto 7.9 % (3-14); Neutrophils Absolute Auto 4300 /uL (1500-7000); Neutrophils Percent Auto 63.4 % (50-75); Platelet Count 290 X10^3/uL (150-400); Red Blood Cell Count 5.05 X10^6/uL (4.5-5.9); Red Cell Distribution Width 13.4 % (11.6-14.8); White Blood Cell Count 6.8 X10^3/uL (4.5-11.0)
[2019-06-14 05:55] LABS: Alanine Aminotransferase 27 IU/L (21-72); Albumin 3.9 g/dL (3.5-5.0); Albumin Globulin Ratio 1.3 (1.0-2.8); Alkaline Phosphatase 80 U/L (38-126); Aspartate Aminotransferase 32 IU/L (17-59); Bilirubin Total 0.5 mg/dL (0.2-1.3); Blood Urea Nitrogen 18 mg/dL (9-20); Calcium 8.8 mg/dL (8.4-10.2); Carbon Dioxide 24 mmol/L (22-32); Chloride 104 mmol/L (98-107); Cholesterol 196 mg/dL (140-199); Estimated Glomerular Filt Rate > 60.0 mL/min (>60); Globulin 3.1 g/dL (1.7-4.1); Glucose 105 mg/dL (80-110); HDL Cholesterol 37 mg/dL (40-60); HEMOLYSIS < 15 (0-50); LDL Cholesterol Calculated 135 mg/dL (<100); Magnesium 1.9 mg/dL (1.6-2.3); Potassium 3.8 mmol/L (3.4-5.1); Sodium 138 mmol/L (137-145); Triglycerides 122 mg/dL (35-150)
[2019-06-14 06:18] LABS: Hemoglobin A1C% w Est Avg Glu 5.8 % (4.0-6.0)
[2019-06-14 07:00] VITALS: BP 129/81; BP 146/83; BP 151/84; PULSE 62; PULSE 67; PULSE 77; RESP 17; TEMP 36.3; O2SAT 96
--- NOTE | 2019-06-14 08:06 | P.DS_ITS ---
History of Present Illness Chief complaint: Weakness/Syncope Narrative: Written by myself Dr. Huynh: Jaron Zayas is an 83-year-old male with a past medical history significant for CAD based on recent CTA, hypertension, hyperlipidemia in a medically treated, short-term memory impairment, probable BPH, and probable MARSHALL not on CPAP who presented via EMS after unprovoked syncopal episode. The patient reports he was at home sitting on the couch when his found him unconscious and slouched over. He recently had a syncopal episode on 03/18/19 that was thought to be related to orthostasis and his hydrochlorothiazide was discontinued and he was discharged home from ER with increased dose of losartan. He had no prodromal symptoms prior to the episode of syncope. He was not bearing down or performing any Valsalva maneuver prior to syncopal episode. He denies headache, lightheadedness or dizziness, palpitations, chest pain, nausea, vomiting, diaphoresis, or any other symptoms leading up to episode. He had no tunnel vision and did not know he was going to pass out. His reports he was very slow to come to and when he awoke he was unaware that he had passed out. We discussed any symptoms leading up to syncopal episode over the last several days or weeks for which the patient mentioned that when he is on his daily walks in the [place] he looks up at a tree he likes to look at and he gets lightheaded or dizzy during extension of neck; he has also noticed he occasionally has trouble saying what he wants to say i.e. expressive aphasia and seems to be occurring more frequently with several times in the last week. He has never had an CO or stroke. He has never had a seizure and his spouse denies convulsions or any seizure like activity. He has noticed increased BPH symptoms including urinary frequency, hesitancy, and weak stream. His reports he has substantially cut back on the amount of his fluid intake due to bothersome quality of urinary frequency. He denies any change in his urine output. He denies dysuria. He has no other complaints and denies headache, lightheadedness or dizziness, vision changes such as double vision or blurry vision, shortness of breath, chest pain, fever, chills, nausea, vomiting, dysuria, diarrhea or constipation. He was admitted for further workup of syncopal episode as this is his 2nd recurrence. PCP is Dr. Dumas at the [facility]. Overlock Collar Setter is Dr. Mehta who he was to establish care with tomorrow 06/13. Discharge Providers Date of admission: 06/12/19 10:28 Discharge Date: 06/14/19 Consults: 06/12/19 10:17 Consult to Discharge Planning Routine Comment: Consult to Physical Therapy Evaluate & Treat Comment: Physician Instructions: Evaluate and Treat 06/13/19 09:53 Consult to Occupational Therapy Evaluate & Treat Comment: please perform SLUMS Physician Instructions: Evaluate and treat Discharge provider: Fariba Huynh DO Summary Discharge Diagnosis: 1. Acute unprovoked syncopal episode, recurrent, present on admission. Resolved prior to admission. 2. 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 Possibly active. 3. Hypertension, chronic, present on admission. Stable. 4. Hyperlipidemia, chronic, present on admission. Stable. 5. Probable BPH, chronic, present on admission. Active. 6. 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 Active. 7. 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 Stable. 8. Grade 1 diastolic dysfunction, chronic and newly diagnosed, present on admission. Stable. Hospital Course: Jaron Zayas is an 83-year-old male with a past medical history significant for CAD based on recent CTA, hypertension, hyperlipidemia in a medically treated, short-term memory impairment, probable BPH, and probable MARSHALL not on CPAP who presented via EMS after unprovoked syncopal episode. 1. Acute unprovoked syncopal episode, recurrent, present on admission. Resolved prior to admission. -Patient presented after syncopal episode while sitting on couch at rest. No prodrome. Previous episode of syncope in ER thought to be related to orthostatic hypotension due to hydrochlorothiazide which was discontinued. -Differential diagnosis includes: Probable dehydration and hypoperfusion as patient felt better after IV fluid administration versusn hypoperfusion due to hypertension with small vessel disease. Also possibly due to arrhythmia as patient is high risk versus vasovagal syncope due to BPH and urinary retention. -No focal neurological deficits. No seizure activity or postictal state. No orthostatsis. -Received 1 L of NS in the ED. Continued normal saline at 100 mL/hr x1 bag. -EKG demonstrated sinus bradycardia with RBBB and no acute ischemic changes. Troponin negative at < 0.012. -Echocardiogram demonstrated mild concentric LVH with EF 55-60, grade 1 diastol ic dysfunction, mild dilated left atrium, mild mitral regurgitation, mild tricuspid regurgitation, ascending aorta is upper limits of normal in size. -Urinalysis performed and does not appear to be infected. -Continued to monitor closely on telemetry. Patient had no ectopy other than sinus bradycardia in mid 50s. Recommended outpatient 30 day heart monitor to assess for arrhythmia. -Continued to monitor orthostatic blood pressures every shift. No orthostasis present during initial evaluation in ED or during hospitalization. -Continued to monitor neurological status closely. -Continued physical, occupational and speech therapy evaluation and treatment. Recommended outpatient speech therapy for word finding and short-term memory impairment for improved communication and safety. 2. 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 Possibly active. -Continue aspirin 81 mg daily and added Plavix 75 mg daily for stroke prevention. Patient has history of hemorrhoidal bleeding and will need to monitor closely. -Patient initially refused statin therapy in the past due to possible liver injury side effect. Highly recommended statin therapy and discussed the 3 MOA in detail. Patient is now amenable to low-dose rosuvastatin 5 mg daily at bedtime which was started and continued. Recommended close monitoring of LFTs and myopa thy in outpatient setting. -Risk stratify with hemoglobin A1c which was 5.8% and indicative of prediabetes and fasting lipid panel which was uncontrolled and demonstrated: Total cholesterol 209, triglycerides 131, LDL 141 (goal <70) and HDL 42. -MR stroke protocol demonstrated multiple foci of old lacunar infarcts in basal ganglia bilaterally and [id number] chronic microvascular ischemic changes. No high-grade stenosis or occlusion in cerebral or neck arteries. Discussed MR stroke protocol findings with radiology and bilateral CVA's are ischemic in etiology and due to microvascular disease. 3. Hypertension, chronic, present on admission. Stable. -Continued losartan 50 mg twice daily. Started and continued amlodipine 10 mg daily in addition to losartan due to persistent hypertension. 4. Hyperlipidemia, chronic, present on admission. Stable. -Fasting lipid panel which was uncontrolled and demonstrated: Total cholesterol 209, triglycerides 131, LDL 141 (goal <70) and HDL 42. -Patient refused statin therapy in the past due to possible liver injury side effect. Highly recommended statin therapy and discussed the 3 MOA in detail. Patient is now amenable to low-dose rosuvastatin 5 mg daily at bedtime which was started and continued. Recommend close monitoring of LFTs and myopathy in outpatient setting. 5. Probable BPH, chronic, present on admission. Active. -Patient has chronic urinary frequency, hesitancy, and weak stream. Patient has little PO intake of fluids due to frequency of urination. Goal fluid intake 50 oz daily. -Patient has been taking Super Beta prostate supplement [id number]. -Patient has been medically treated for BPH with tamsulosin which was likely discontinued due to orthostasis driven syncopal episode in 03/11. -Recommended urology referral to address BPH surgically as he is not a candidate for medications which are relatively contraindicated in context of recurrent syncopal episodes. 6. 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 Active. -Patient's spouse reports he snores severely. She denies apneic episodes. -Respiratory therapy consulted for evaluation and treatment of CPAP protocol but patient refused. -Highly recommended sleep study and treatment with CPAP if MARSHALL present which is undoubtedly present. 7. 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 Stable. -Vascular in etiology and likely related to bilateral CVA's. -MR stroke protocol as above. -SLUMS 24 and unable to follow instructions or perform trail making, therefore, the patient should NOT drive. 8. Grade 1 diastolic dysfunction, chronic and newly diagnosed, present on admission. Stable. -No need for diuresis currently. -Continued losartan 50 mg twice daily and amlodipine 10 mg daily. Patient is not a beta-marion candidate due to bradycardia and syncopal episodes. -Recommended referral to Cardiology for further workup of syncope, 30 day heart monitor, and follow diastolic dysfunction which per patient report is in process. Exam Vital Signs (past 8 hours): - 06/14/19 01:00 06/14/19 03:27 06/14/19 07:00 Temperature 97.4 F L 97.4 F L Pulse Rate 65 67 Pulse Rate [Orthostatic Lying] 63 62 Pulse Rate [Orthostatic Sitting] 63 67 Pulse Rate [Orthostatic Standing] 80 77 Respiratory Rate 20 17 Blood Pressure 160/82 H 151/84 H Blood Pressure [Orthostatic Lying] 168/89 H 146/83 H Blood Pressure [Orthostatic Sitting] 151/93 H 151/84 H Blood Pressure [Orthostatic Standing] 131/90 129/81 Pulse Oximetry 97 96 Oxygen Delivery Method Room Air Oxygen Flow Rate 0 Narrative Exam Narrative: General: Elderly gentleman lying supine comfortably in bed and in no acute distress, well-developed, well-nourished, mild cognitive impairment with short term memory recall deficit but appropriately interactive. HEENT: Normocephalic, atraumatic. External ears without defect. Pupils equal, oval, and reactive to light and accommodation. Anicteric sclerae, moist conjunctivae, and no lid lag. Oropharynx free of erythema and cobble stoning with moist mucosa. Neck: Supple with full range of motion. No jugular venous distension. No bruits. No lymphadenopathy or thyromegaly. Cardiovascular: Regular rate and rhythm without murmurs, rubs, or gallops appreciated. Pulmonary: Clear to auscultation bilaterally without crackles, wheezes, or rhonchi. Normal respiratory effort without use of accessory muscles. Abdomen: Soft, bowel sounds present, nontender, nondistended. No hepatosplenomegaly or masses appreciated. Extremities: No clubbing, cyanosis, or edema. Skin: Normal temperature, poor turgor, and normal texture; no rash, ulcers, or subcutaneous nodules appreciated. Neurological: Cranial nerves grossly intact. Normal muscle strength, tone, and bulk. Reflexes, coordination, and sensory function within normal limits. Cerebellar function intake with finger to nose and heel to paiz. No Babinski. No known gait impairment. No focal neurological deficits. Psychiatric: Normal mood and affect. Alert and oriented to person, place, and time. 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 Objective Labs Result Diagrams: 06/14/19 05:35 06/14/19 05:35 Labs: Laboratory Results - last 24 hr 06/14/19 06/14/19 06/14/19 05:35 05:35 05:35 WBC 6.8 RBC 5.05 Hgb 15.2 Hct 43.9 MCV 86.8 MCH 30.0 MCHC 34.6 RDW 13.4 Plt Count 290 Neut % (Auto) 63.4 Lymph % (Auto) 26.5 [place] % (Auto) 7.9 Eos % (Auto) 1.2 L Baso % (Auto) 1.0 Neut # (Auto) 4300 Lymph # (Auto) 1800 [place] # (Auto) 500 Eos # (Auto) 100 Baso # (Auto) 100 Sodium 138 Potassium 3.8 Chloride 104 Carbon Dioxide 24 BUN 18 Creatinine 0.90 Estimated GFR > 60.0 BUN/Creatinine Ratio 20.0 Glucose 105 Hemoglobin A1c 5.8 Calcium 8.8 Magnesium 1.9 Total Bilirubin 0.5 AST 32 ALT 27 Alkaline Phosphatase 80 Total Protein 7.0 Albumin 3.9 Globulin 3.1 Albumin/Globulin Ratio 1.3 Triglycerides 122 Cholesterol 196 LDL Cholesterol, Calc 135 H HDL Cholesterol 37 L Discharge Plan Discharge Plan Patient Disposition: Home Discharge comment: You are being discharged home. Please follow-up with your primary care physician, Dr. Dumas, in the next 1 week regarding your hospitalization. You have evidence of multiple old strokes. You have been continued on aspirin 81 mg daily and added plavix 75 mg daily and rosuvastatin 5 mg daily at bedtime to prevent stroke. Do not drive. The cause of your syncopal episode is undetermined and there are many possibilities. His syncopal episodes are likely related to his blood pressure either being too high or too low. Continue blood pressure control with losartan 50 mg twice daily and added amlodipine 10 mg daily for better control of his blood pressure as it was very high during his hospitalization. He likely has sleep apnea and recommend an expedited sleep study and treatment with CPAP if present as sleep apnea can cause elevated blood pressures. Also recommend a 30 day heart monitor to rule out arrhythmia. Recommend a urology referral to address his enlarged prostate and urinary frequency as medicines are contraindicated due to his syncopal episodes. Recommend a referral to cardiology to establish care for stage 1 diastolic heart failure, 30 day heart monitor to assess for arrhythmia and further workup of his syncopal episodes. Goal fluid intake per day is 50 oz (not including caffeine). Recommend outpatient Discharge Med Rec/Prescriptions Prescriptions: New clopidogrel 75 mg Tablet 75 mg PO DAILY Qty: 30 RF: 0 amlodipine [Norvasc] 5 mg Tablet 10 mg PO DAILY Qty: 60 RF: 0 aspirin 81 mg Tablet,Delayed Release (Dr/Ec) 81 mg PO DAILY Qty: 30 RF: 0 rosuvastatin 10 mg Tablet 5 mg PO BEDTIME Qty: 30 RF: 0 Continued losartan 50 mg Tablet 50 mg PO BID RF: 0 Follow up/Referrals: Anna Dumas MD [Non-Staff] - 1 Week Provider Discharge Instructions Diet: Low-fat, Low-sodium and Low-cholesterol Activity: Activity as tolerated Visit Report/Discharge Packet Instructions: DI for Syncope in Adults (Fainting), Recommendations to Help Prev ent High Blood Pressure, Heart Failure, DI for Heart Failure, DI for High Blood Pressure, DI for Obstructive Sleep Apnea -- Adult, Amlodipine, Clopidogrel (By mouth) Visit Report Forms: Stroke Signs & Symptoms Discharge Data Attending Provider: Fariba Huynh Admit Date/Time: 06/12/19 10:28 Discharges patient from system. Discharge Date/Time: 06/14/19 14:46 Quality VTE Deep Vein Thrombosis/Pulmonary Embolism Present on Admission: No
[2019-06-14] MEDS: ASPIRIN EC 81 MG TABLET PO (09:01)
[2019-06-14] MEDS: LOSARTAN 50 MG TABLET PO (09:01)
[2019-06-14] MEDS: AMLODIPINE 5 MG TABLET 10 MG PO (09:01)
[2019-06-14] MEDS: CLOPIDOGREL 75 MG TABLET PO (09:01)
[2019-06-14] MEDS: SODIUM CHLORIDE 0.9% FLUSH 10 ML IV (09:02)
[2019-06-14] MEDS: ENOXAPARIN 40 MG/0.4 ML SYRINGE SUBCUT (09:02)
[2019-06-14 09:11] VITALS: O2SAT 96
--- NOTE | 2019-06-14 09:29 | OT.IP.TRT ---
Occupational Therapy Treatment Note M2 OT-IP Current Condition Start: 06/13/19 14:41 Freq: Status: Active Protocol: Document 06/13/19 14:00 [facility] (Rec: 06/13/19 15:13 [facility] [id number]) Occupational Therapy Current Condition Current Condition Evaluation Date 06/13/19 Treatment Diagnosis Syncopal episode Diagnosis Onset Date 06/12/19 Weight Bearing Status Weight Bearing Status Weight Bear as Tolerated M3 OT- IP Subjective and Pain Start: 06/13/19 14:41 Freq: Status: Active Protocol: Document 06/14/19 09:19 [facility] (Rec: 06/14/19 09:29 [facility] [id number]) OT- Subjective Occupational Therapy Visit Type Type Treatment Note Visit Start Time 08:30 Visit Stop Time 09:10 Total Visit Minutes 40 Occupational Therapy Visit Comments Patient Comments Pt agreeable to do cognitive and balance assessments. Patient/Caregiver Goals Pt wanting to go home. OT Pain Assessment Pain When Pain Assessed At Rest Pain Present Pain Present Denied Pain M4 OT- IP ADL's Start: 06/13/19 14:41 Freq: Status: Active Protocol: Document 06/14/19 09:19 [facility] (Rec: 06/14/19 09:29 [facility] [id number]) OT OZC-Cnin-Esbcftc General Evaluation Self-Feeding Ability Independent OT ADL-Dressing General Eval Lower Body Dressing Ability Independent OT ADL-Bathing Comments OT Bathing Comments Pt not wanting to shower prior to leaving. M5 OT- IP IADL's Start: 06/13/19 14:41 Freq: Status: Active Protocol: Document 06/13/19 14:00 [facility] (Rec: 06/13/19 15:13 [facility] [id number]) OT-Instrumental Activities of Daily Living Home Safety Awareness Home Safety Comments Pt states does all the bills at home. Medication Management Medication Management No Deficits Identified Money Management Money Management Caregiver Provides Assistance Theatre Arts Professor Theatre Arts Professor Comments Pt states does chores at home including yard work outside. Pt states recently fall over his weed eater but able to get back up. Driving Driving Comments Pt states still drives. M6 OT- IP Functional Cognition Start: 06/13/19 14:41 Freq: Status: Active Protocol: Document 06/14/19 09:19 [facility] (Rec: 06/14/19 09:29 [facility] [id number]) Cognitive Factors Limiting Selfcare Function Cognitive Ability Level of Alertness Alert Patient Orientation Name Age Birthday Month Date Year Day of Week Place Situation Attention Span Ability Capable of Focused Attention Unable to Sustain Attention Memory Description Short Term Impaired Working Impaired Safety Awareness Underestimates Need for Assistance Problem Solving Ability Needs Assist to Identify Solutions Executive Function Ability Unable to Filter Distractions Unable to Remember Details Cognitive Comments Cognitive Assessment Comments Pt retrial of [place] making Part B and able to complete assessment however with MAXA vc for directions as forgot what to do and eventually had to do self talk to get through the assessment with 536 seconds. still recommend that no driving , in addition to no to operate any heavy equipment, pt's states that he likes to use the chainsaw at time and weed eater. OT- Vision and Hearing OT- Hearing Assessment OT- Hearing Assessment Hearing Impaired M7 OT- IP Mobility and Balance Start: 06/13/19 14:41 Freq: Status: Active Protocol: Document 06/14/19 09:19 [facility] (Rec: 06/14/19 09:29 [facility] [email or web address]) OT- Balance Assessment Sitting Balance and Reactions Static Sitting Balance Ability Normal Dynamic Sitting Balance Ability Normal Standing Balance and Reactions Static Standing Balance Ability Normal Dynamic Standing Balance Ability Good Balance Tests Gabriel Balance Test Score Pt scored 50/56 no assistive Query Text:Score device, less like to fall Comments Other Balance Tests/Deviations/Treatment Decreased proprioception : kinesthesia for hands and wrist. M8 OT- IP Objective Assessments Start: 06/13/19 14:41 Freq: Status: Active Protocol: Document 06/13/19 14:00 [facility] (Rec: 06/13/19 15:13 [facility] [email or web address]) OT Gross Range of Motion Upper Extremity Range of Motion Assessment Within Functional Limits OT Strength Comments Strength Comments 4/5 BUE OT- Coordination Assessment Upper Extremity Finger to Nose Test Within Functional Limits OT-Muscle Tone Assessment Muscle Tone WNL Yes M9 OT- IP Assessment and Plan Start: 06/13/19 14:41 Freq: Status: Active Protocol: Document 06/14/19 09:19 [facility] (Rec: 06/14/19 09:29 [facility] [email or web address]) OT Summary Assessment and Plan Potential Rehabilitation Potential Good Analytic Complexity at Evaluation Low Summary Progress Towards Goals Slow Progress due to Medical Issues Slow Progress due to Cognition Assessment Summary Spoke at length to pt's and states pt cognition has progressively deteriorated especially for memory. Pt is also hard of hearing and would be beneficial to get his ears checked for possible need of hearing aids. Pt's notes has also recently noticed that pt shuffles his feet at times. Pt to go home with assist and supervision and recommend SERVER ADMINISTRATOR outpt, SERVER ADMINISTRATOR to see pt today for their recommendations. Pt's has good understanding that pt should not be driving. Goals Days to Meet Goals 1 Frequency of Treatment Frequency Of Treatment Once a Day Treatment Plan OT Treatment Plan ADL Training Functional Cognition Training Functional Mobility Patient/Family Education Discharge Planning Discharge Recommendations OT Discharge Recommendations Home with Assistance
--- NOTE | 2019-06-14 09:48 | ST.IPIE ---
Past Medical History (Last Updated 06/12/19 @ 23:53 by Fariba Huynh, ) BPH (benign prostatic hyperplasia) (Acute Medical) Memory deficit (Acute Medical) Elevated cholesterol (Acute Medical) Hypertension (Acute Medical) Left inguinal hernia (Acute Medical) ST IP Initial Evaulation Report DIRECTOR OF OPERATIONS SUPPORT Language Evaluation Start: 06/14/19 09:34 Freq: Status: Active Protocol: Document 06/14/19 09:35 [facility] (Rec: 06/14/19 09:48 [facility] [email or web address]) Language Evaluation Session Time Visit Start Time 09:10 Visit Stop Time 09:30 Total Visit Minutes [address] Huynh Reason for Referral Intermittent expressive aphasia Past Medical History Patient History Patient presented after syncopal episode while sitting on couch at rest. Differential diagnosis includes: Neurological versus cardiac versus reflexive syncope. He scored 24/30 on SLUMS administered by OT yesterday. Patient reports difficulty with word finding and memory and agrees. Previous Therapy Previous Speech-Language Therapy No Oral Motor Examination Oral Motor Exam Completed No - - Receptive Language Yes/No Questions Skill Level WNL Following Directions - Verbal Skill Level WNL Auditory Comprehension Skill Level WNL Reading Comprehension Skill Level WNL - Expressive Language Automatic Speech Skill Level WNL Sentence Closure Skill Level WNL Object Naming Skill Level Mildly Impaired Oral Expression Skill Level WFL - Findings Language Findings Nonstandardized assessment for speech and language was administered. The patient was alert, oriented and cooperative during the assessment. Articulation was precise and 100% intelligible with no signs of dysarthria or motor speech impairment. Receptive language skills were within normal limits for simple and complex questions and following directions. Expressive language with within normal limits for automatic speech tasks, phrase completion, reading and basic conversation skills. He had mild difficulty with word finding during object naming of wheelchair and escalator. Given extra time of~20 seconds , he was able to come up with the correct word for both. Memory was not assessed, but was identified as an area of impairment on the SLUMs. I spoke with the patient and his about recommendations for outpatient speech therapy to address word finding and memory. I also provided written strategies for word finding and discussed these with them. They were both appreciative and stated they were interested in pursuing outpatient therapy to improve these skills. Recommendations Recommendations Outpatient speech therapy for word finding and short term memory for improved communication and safety.
[2019-06-14 11:00] VITALS: BP 144/81; PULSE 65; RESP 15; TEMP 36.8; O2SAT 97
--- NOTE | 2019-06-14 12:06 | PC.NURSE ---
Day shift: Pt has been steady on feet but he does not use call light and gets fupset when the chair alarm is used. Has been asked at least 6 times this shift to please call us when he needs to get OOB or out of the chair. He is high fall risk per [facility] protocol. Pt to d/c home today.
--- NOTE | 2019-06-14 14:45 | PC.NURSE ---
Day shift: Pt left unit at approx 1435. Paperwork signed and all questions answered. Pt has MD scrips and all personal belongings. Taken out to private car by this lyric writer in WC.
== END 2019-06-14 14:46 | disposition home or self-care (01) ==
LOC: ED 07:44 → AC 10:28
PROVIDERS: Admitting Provider Internal Medicine; Emergency Provider Emergency Medicine; Visit Provider Internal Medicine
DX: R55 Syncope and collapse (principal); I25.10 Atherosclerotic heart disease of native coronary artery without angina pectoris; I10 Essential (primary) hypertension; E78.5 Hyperlipidemia, unspecified; G31.84 Mild cognitive impairment of uncertain or unknown etiology
CPT/HCPCS: 36415; 70450; 70548; 70553; 71045; 80053; 80061; 81001; 81003; 82550; 83036; 83735; 83880; 84146; 84484; 85025; 92523; 93005; 93306; 96360; 96361; 96372; 97112; 97116; 97161; 97165; 97530; 99283; 99285; G0378; A9579; J1650

== ENCOUNTER → 2019-08-26 07:11 | Outpatient (CLI) | payer MEDICARE, OTHER, SELFPAY ==
[2019-06-12 11:18] VITALS: BMI 25.8
--- NOTE | 2019-08-26 08:46 | P.PCN_ITS ---
Cardiac Stress Test Report Referral & Results Date Patient Seen: 08/26/19 Time Patient Seen: 08:30 Requesting provider: Pola Mehta Indication: CAD Procedure Note: Patient exhibited a shuffling gait that was not appropriate for treadmill testing. He had difficulty keeping up with the belt even at reduced speed. We converted this to a walking Lexiscan. After both written and verbal informed consent the patient had an IV started by the diagnostic imaging RN and then was hooked up to the treadmill monitoring system. The patient was placed on the treadmill at 0.8 mile an hour with no elevation and was then injected with the Blanca scan material. The Cardiolite was then immediately administered. The patient spent an additional 2-3 minutes on the treadmill before being returned to the [facility] in the supine position. The patient had a normal response to all infused materials. Occasional PVCs observed. Impression: Successful Blanca protocol. Will await perfusion imaging. Please note: Actual ECG tracings can be found in the PACS system.
--- NOTE | 2019-08-29 18:38 | DI.NM.S_ITS ---
DATE OF SERVICE: 08/26/2019 PROCEDURE: Pharmacological perfusion study. INDICATIONS: Syncope with known coronary artery disease, hypertension, underlying right bundle branch block, left anterior left fascicular block. RADIOPHARMACEUTICAL: 24.6 mCi technetium-99m Myoview IV was injected at stress and 26.6 mCi technetium-99m Myoview IV was injected at rest. CARDIAC STRESS: Patient underwent IV Lexiscan perfusion study under the supervision of an attending staff. Patient remained hemodynamically stable. No symptoms of angina. Baseline EKG revealed sinus rhythm with right bundle branch block and left anterior fascicular block. During stress, there no convincing ischemic changes. There were some PVCs. RAW DATA: There was increased subdiaphragmatic activity and gut shadow near the inferior border of the heart. GATED STUDY: Resting stress LV ejection fraction 62%. Stress LV ejection fraction 73%. No obvious wall motion abnormalities. No transient ischemic dilatation. TID ratio is 0.72, which is within normal limits. Resting LV end- diastolic volume is 98 mL. Lung/heart ratio is 0.34, which is within normal limits. MYOCARDIAL PERFUSION SCAN: Stress supine and resting supine images revealed moderate-sized, tpuk-pg-qyujzkqirl decreased perfusion of inferior wall and inferior apex which got partially improved during prone images. Prone images remained to have mildly decreased perfusion of base-to-mid inferior wall. No reversible ischemia. CONCLUSION: 1. No obvious reversible ischemia. 2. There is a partial improvement in the inferior wall and inferoapical defect from stress and resting supine images during prone suggestive of diaphragmatic tissue attenuation artifact and persistent diaphragmatic tissue attenuation artifact. Inferior wall is moving well. Left ventricular (LV) function is preserved which goes against the diagnosis of previous transmural myocardial infarction. In raw data, there was increased of diaphragmatic tissue activity and hotspot near the inferior border of the heart. Hence, most likely we are dealing with tissue attenuation artifact. 3. Patient had perfusion study in 01/2016. There was mild reversible ischemia in wou-zm-cqkigh anterior wall which has resolved in this study. I don't see any anterior wall reversible ischemia. At that time also the patient had inferior wall defect which got improved during prone images. 4. As far as perfusion scan is concerned, this is a low-risk myocardial perfusion scan. Clinical correlation is recommended. Jaron Zayas - ALTAGRACIA/shreya/ doc#: [id number]/job#: [id number] dd: 08/29/2019 17:10:00 dt: 08/29/2019 18:20:00 DICTATING MD/COPIES TO: Rolando Clinton MD COPIES MNE: MOHIT
== END ==
PROVIDERS: PCP Family Medicine; Visit Provider Internal Medicine Cardiovascular Disease
DX: R55 Syncope and collapse (principal); I25.10 Atherosclerotic heart disease of native coronary artery without angina pectoris; I10 Essential (primary) hypertension; I45.10 Unspecified right bundle-branch block; I44.4 Left anterior fascicular block
CPT/HCPCS: 78452; 93016; 93017; 93018; A9502; J2785

== ENCOUNTER 2019-12-14 21:19 | Emergency (ER) | payer MEDICARE, OTHER, SELFPAY ==
[2019-06-12 11:18] VITALS: BMI 25.8
[2019-12-14 22:05] VITALS: BP 197/104; PULSE 72; RESP 20; TEMP 36.8; O2SAT 95
[2019-12-14] MEDS: PROPARACAINE 0.5% OPHTH SOL 2 DROPS EYE-OP (23:15)
--- NOTE | 2019-12-15 00:08 | ED_ITS ---
HPI - Eye Problem General Chief complaint: Eye Problems Stated complaint: rt eye possible infection Time Seen by Provider: 12/15/19 00:07 Source: patient Mode of arrival: Ambulatory Limitations: no limitations History of Present Illness HPI Narrative: 84-year-old gentleman with a history of blood clots in the right eye and injections to treat that. Apparently it is a series of 6 intra- ocular/periocular injections that have been done by ophthalmologists at [facility]. He had his 5th injection today. The the previous 4 were all unremarkable. Within 3 or 4 hours of the injection today his IV came more irritated he noted some redness mild discharge and swelling of the upper eyelid. He has some scleral injection associated with the medication injection as well. Patient does not know the exact diagnosis, his doctor's name nor the name of the medication that was injected. He did not contact the electronic test technician prior to coming to the emergency department and is not tried any jzpc-odm-pwqcjuf pain medication. He denies fever or visual change, reports the eye pain is sharp stabbing and somewhat dry itchy feeling. With some investigation we were able to pinpoint the clinic based on description of where was located. I spoke with Dr Lopez, ophthalmology on-call for [facility]. this reaction is common rx for antibiotic ointment, e-mycin QID x 2 days call the office if not better Related Data Home Medications Medication Instructions Recorded Confirmed losartan 50 mg PO BID 12/28/18 08/16/19 Previous Rx's Medication Instructions Recorded amlodipine [Norvasc] 10 mg PO DAILY #60 tab 06/14/19 aspirin 81 mg PO DAILY #30 tab 06/14/19 clopidogrel 75 mg PO DAILY #30 tab 06/14/19 rosuvastatin 5 mg PO BEDTIME #30 tab 06/14/19 Allergies Allergy/AdvReac Type Severity Reaction Status Date / Time WASP VENOM Allergy Intermediate HIVES Uncoded 01/21/19 09:31 Review of Systems Review of Systems Narrative: All systems reviewed and are unremarkable except as noted in HPI and below Patient History Medical History BPH (benign prostatic hyperplasia) (Acute) Elevated cholesterol (Acute) Hypertension (Acute) Left inguinal hernia (Acute) Memory deficit (Acute) Surgical History H/O cataract removal with insertion of prosthetic lens (Acute) History of right inguinal hernia repair (Resolved) History of right inguinal hernia repair (Acute) Family History Mother Gall bladder disease Father No problems noted. Brother No problems noted. Social History household members: spouse Smoking Status: Former smoker alcohol intake: current Smoking Status: Former smoker alcohol intake frequency: holidays/special occasions only Substance Use Type: does not use Exam Narrative Exam Narrative: General: Alert appropriate in mild distress Eye exam: Right eye with subconjunctival hemorrhage. Minor discharge, minor swelling and erythema to the upper lid. Full range of motion. Slit-lamp exam of the eye with fluorescein reveals very superficial corneal ulceration that ap pears that he simply rubbed his eye too hard. Respiratory: Able to speak in full sentences, no obvious respiratory distress Skin: No obvious rashes, warm and dry Neurologic: Grossly intact no obvious asymmetries or abnormalities Psych, appropriate insight and affect, cooperative Initial Vital Signs Initial Vital Signs: Vital Signs Temperature 98.3 F 12/14/19 22:05 Pulse Rate 72 12/14/19 22:05 Respiratory Rate 20 12/14/19 22:05 Blood Pressure 197/104 H 12/14/19 22:05 Pulse Oximetry 95 12/14/19 22:05 Course Orders Ordered: Discontinued Medications Erythromycin (Erythromycin Ophth Oint) 1 applic EYE-LEFT NOW ONE Stop: 12/15/19 00:51 Last Admin: 12/15/19 01:05 Dose: 1 applic Documented by: DOMENIC Fluorescein Sodium (Ful-Arlette) 1 mg EYE-RIGHT NOW ONE Stop: 12/14/19 23:39 Proparacaine HCl (Parcaine 0.5% Ophth Devorah) 2 drops EYE-OP NOW ONE Stop: 12/14/19 22:57 Last Admin: 12/14/19 23:15 Dose: 2 drops Documented by: KATHERINE Vital Signs Vital signs: Vital Signs - 8 hr 12/14/19 22:05 12/15/19 01:19 Temperature 98.3 F Pulse Rate 72 72 Respiratory Rate 20 16 Blood Pressure 197/104 H Blood Pressure [Left Arm] 164/86 H Pulse Oximetry 95 96 MDM - Eye Problem MDM Narrative Medical decision making narrative: Patient's pain was well controlled with topical anesthetic. In discussion and consultation with electronic test technician Started him on erythromycin ointment. He was discharged home in stable condition with instructions to follow-up with pro located within [facility] tomorrow. Safe for home discharge Discharge Plan Departure Patient Disposition: Home Clinical Impression: Abrasion, corneal Qualifiers: Encounter type: initial encounter Laterality: right Qualified Code(s): S05.01XA - Injury of conjunctiva and corneal abrasion without foreign body, right eye, initial encounter Adverse reaction to drug Qualifiers: Encounter type: initial encounter Qualified Code(s): T50.905A - Adverse effect of unspecified drugs, medicaments and biological substances, initial encounter Discharge Date/Time: 12/15/19 01:46 Activity Restrictions/Additional Instructions: Thank you for coming in tonight and thank you for your patience with the long wait times I spoke with Dr. Lopez, with [facility]. He felt that this reaction was not outside of expected side effects from the injection you had earlier today. You do have a very superficial abrasion over the lower part of your cornea, this is likely from rubbing your eye due to the pain. Please call the eye clinic tomorrow morning and let them know that you've had this reaction and were seen in the emergency room. The eye doctor has recommended using erythromycin antibiotic ointment, a small ribbon of ointment tucked into the lower lid of your eye, 4 times a day for the next 2 days. If you are getting better you likely will not need additional follow-up, but please discuss this with the eye doctors tomorrow. If there's something else that changes this evening please feel free to return to the emergency room for additional evaluation Prescriptions: No Action losartan 50 mg Tablet 50 mg PO BID RF: 0 clopidogrel 75 mg Tablet 75 mg PO DAILY Qty: 30 RF: 0 amlodipine [Norvasc] 5 mg Tablet 10 mg PO DAILY Qty: 60 RF: 0 aspirin 81 mg Tablet,Delayed Release (Dr/Ec) 81 mg PO DAILY Qty: 30 RF: 0 rosuvastatin 10 mg Tablet 5 mg PO BEDTIME Qty: 30 RF: 0 Referrals: Anna Dumas MD [Primary Care Provider] -
[2019-12-15] MEDS: ERYTHROMYCIN OPHTH 1 GM OINT 1 APPLIC EYE-LEFT (01:05)
[2019-12-15 01:19] VITALS: BP 164/86; PULSE 72; RESP 16; O2SAT 96
== END 2019-12-15 01:46 | disposition home or self-care (01) ==
PROVIDERS: Emergency Provider Emergency Medicine; PCP Family Medicine
DX: S05.01XA Injury of conjunctiva and corneal abrasion without foreign body, right eye, initial encounter (principal); T50.905A Adverse effect of unspecified drugs, medicaments and biological substances, initial encounter
CPT/HCPCS: 99282

== ENCOUNTER 2020-10-06 11:39 | Emergency (ER) | payer MEDICARE, OTHER, SELFPAY ==
[2019-06-12 11:18] VITALS: BMI 25.8
[2020-10-06 11:51] VITALS: BP 179/86; PULSE 59; O2SAT 93
[2020-10-06 11:53] VITALS: BP 179/86; PULSE 59; RESP 22; TEMP 36.4; O2SAT 95; BMI 24.7
[2020-10-06 12:00] VITALS: BP 182/86; PULSE 63; RESP 20; O2SAT 97
--- NOTE | 2020-10-06 12:11 | ED.DIZZY ---
HPI - Dizziness General Chief Complaint: Dizziness Stated Complaint: DIZZY Time Seen by Provider: 10/06/20 11:55 Source: patient Mode of arrival: Ambulatory Limitations: no limitations History of Present Illness HPI Narrative: Patient is an 84-year-old male who presents with dizziness. He states he woke up this morning and when he stood up he felt lightheaded but was better when he sat down. He then ate Cheerios and was feeling better well enough to go on a walk in fact. He denied any numbness tingling or weakness. He had no chest pain or heart palpitations. He now says that he feels better than he has all morning. However he occasionally still gets a little lightheaded whenever he stands up. MD complaint: lightheadedness Timing: awoke with symptoms Description: sense of movement History of similar episodes: No Related Data Home Medications Medication Instructions Recorded Confirmed losartan 50 mg PO BID 12/28/18 07/13/20 Previous Rx's Medication Instructions Recorded amlodipine [Norvasc] 10 mg PO DAILY #60 tab 06/14/19 aspirin 81 mg PO DAILY #30 tab 06/14/19 clopidogrel 75 mg PO DAILY #30 tab 06/14/19 rosuvastatin 5 mg PO BEDTIME #30 tab 06/14/19 triamcinolone acetonide 0.1 % 1 applic TOP TID #80 gram 07/13/20 topical cream Allergies Allergy/AdvReac Type Severity Reaction Status Date / Time bee venom protein (honey bee) Allergy Verified 10/06/20 11:53 Review of Systems Review of Systems ROS Unobtainable: All systems reviewed & are unremarkable except as noted in HPI and below Constitutional Constitutional: Denies chills, Denies fever(s), Denies lethargy and Denies weakness ENT Ears, Nose, Mouth, and Throat: Denies change in voice, Denies neck pain and Denies sore throat Cardiovascular Cardiovascular: Denies chest pain, Denies irregular heart rhythm, Reports lightheadedness, Denies palpitations, Denies dyspnea, Denies dyspnea on exertion and Denies orthopnea Respiratory Respiratory: Denies cough, Denies dyspnea, Denies dyspnea on exertion and Denies wheezing Gastrointestinal Gastrointestinal: Denies abdominal pain, Denies change in bowel habits, Denies diarrhea, Denies nausea and Denies vomiting Musculoskeletal Musculoskeletal: Denies neck pain Integumentary/Breasts Skin/Breast: Denies pruritus, Denies erythema, Denies rash and Denies wounds Neurologic Neurologic: Denies weakness Endocrine Endocrine: Denies palpitations Allergic/Immunologic Allergic/Immunologic: Denies wheezing Patient History Medical History BPH (benign prostatic hyperplasia) (Acute) Elevated cholesterol (Acute) Hypertension (Acute) Left inguinal hernia (Acute) Local reaction to bee sting (Acute) Memory deficit (Acute) Surgical History H/O cataract removal with insertion of prosthetic lens (Acute) History of right inguinal hernia repair (Resolved) History of right inguinal hernia repair (Acute) Family History Mother Gall bladder disease Father No problems noted. Brother No problems noted. Social History household members: spouse Smoking Status: Former smoker alcohol intake: current Smoking Status: Former smoker alcohol intake frequency: holidays/special occasions only Substance Use Type: does not use Exam Initial Vital Signs Initial Vital Signs: Vital Signs Pulse Rate 59 L 10/06/20 11:51 Blood Pressure 179/86 H 10/06/20 11:51 Pulse Oximetry 93 10/06/20 11:51 GENERAL: Alert pleasant well-appearing elderly male and in no acute distress. HEENT: Head atraumatic,EOMI, pupils reactive, face symmetric, moist muous membranes] CARDIOVASCULAR: Regular rate and rhythm without murmurs, rubs or gallops. RESPIRATORY: Breath sounds equal bilaterally, no wheezes rales or rhonchi. ABDOMEN: Soft, nontender. Normoactive bowel sounds all 4 quadrants. No guarding or rebound. EXTREMITIES: Normal range of motion, no clubbing or edema. Neurovascularly intact NEUROLOGICAL: Alert and oriented x4.Normal gait and speech. Cranial nerves II through XII grossly intact. Good yyjfge-va-tohl, good kseb-kt-pfvt, strength equal bilaterally, no dysarthria or aphasia, sensation in tact to soft touch bilaterally, no visual changes, no facial droop SKIN: Warm, dry, no laceration, no petechiae, no rashes or lesions. Scores NIH Stroke Scale Level of Conciousness: Alert, keenly responsive Ask month/age: Answers both questions correctly. Open/close eyes, close hand: Performs both tasks correctly Best gaze horizontal: Normal Visual layton: No visual loss Facial palsy: Normal symetrical movement Left arm drift: No drift for full 10 sec Right arm drift: No drift for full 10 sec Left leg drift: No drift for full 5 sec Right leg drift: No drift for full 5 sec Limb ataxia: Absent Sensory on face/arms/legs: Normal, no sensory loss Best language: No aphasia, normal Dysarthria: Normal Extinction or inattention: No abnormality Total NIH Stroke scale score: 0 Course Orders Ordered: ED Orders 10/06/20 12:00 Complete Blood Count AUTO DIFF Stat Comprehensive Metabolic Panel Stat Troponin I Stat Discontinued Medications Sodium Chloride (Normal Saline 0.9%) 1,000 mls @ 1,000 mls/hr IV CONT TONY Last Infusion: 10/06/20 13:32 Dose: 0 mls/hr Documented by: Admin: 10/06/20 12:22 Dose: 1,000 mls/hr Documented by: JARED Vital Signs Vital signs: Vital Signs - 8 hr 10/06/20 11:51 10/06/20 11:53 10/06/20 12:00 Temperature 97.5 F L Pulse Rate 59 L 59 L 63 Respiratory Rate 22 20 Blood Pressure 179/86 H 179/86 H 182/86 H Pulse Oximetry 93 95 97 10/06/20 12:30 10/06/20 13:00 10/06/20 13:01 Temperature Pulse Rate 59 L 60 59 L Respiratory Rate 22 20 20 Blood Pressure 161/76 H 176/83 H Pulse Oximetry 95 96 97 MDM - Dizziness Lab Data Attestation: I reviewed the patient's lab results. Result diagrams: 10/06/20 12:00 10/06/20 12:00 Labs: Lab Results 10/06/20 10/06/20 10/06/20 Range/Units 12:00 12:00 12:00 WBC 6.3 (4.5-11.0) X10^3/uL RBC 4.92 (4.5-5.9) X10^6/uL Hgb 14.8 (13.5-17.5) g/dL Hct 43.7 (41-53) % MCV 88.7 (80-100) fL MCH 30.0 (26-34) PG MCHC 33.8 (30-36) % RDW 13.7 (11.6-14.8) % Plt Count 262 (150-400) X10^3/uL Neut % (Auto) 63.1 (50-75) % Lymph % (Auto) 25.3 (25-40) % [place] % (Auto) 9.0 (3-14) % Eos % (Auto) 1.7 L (2-4) % Baso % (Auto) 0.9 (0-2) % Neut # (Auto) 4000 (6185-1042) /uL Lymph # (Auto) 1600 (3080-8829) /uL [place] # (Auto) 600 (0-900) /uL Eos # (Auto) 100 (0-450) /uL Baso # (Auto) 100 (0-100) /uL Sodium 136 L (137-145) mmol/L Potassium 4.2 (3.4-5.1) mmol/L Chloride 103 (98-107) mmol/L Carbon Dioxide 28 (22-32) mmol/L BUN 24 H (9-20) mg/dL Creatinine 0.98 (0.66-1.25) mg/dL Estimated GFR > 60.0 (>60) mL/min BUN/Creatinine Ratio 24.5 H (6-22) Glucose 94 (80-110) mg/dL Calcium 8.8 (8.4-10.2) mg/dL Total Bilirubin 0.6 (0.2-1.3) mg/dL AST 32 (17-59) IU/L ALT 23 (<50) IU/L Alkaline Phosphatase 78 (38-126) U/L Troponin I < 0.012 (0.01-0.034) ng/mL Total Protein 7.2 (6.3-8.2) g/dL Albumin 4.1 (3.5-5.0) g/dL Globulin 3.1 (1.7-4.1) g/dL Albumin/Globulin Ratio 1.3 (1.0-2.8) Urine Dip Bedside Urine Glucose Negative Bedside Urine Bilirubin - Negative Bedside Urine Ketone - Negative Urine Specific [place] 1.025 Bedside Urine Occult Blood - Negative Bedside Urine pH 6.0 Bedside Urine Protein - Negative Bedside Urine Urobilinogen - Negative Bedside Urine Nitrite - Negative Bedside Urine Leukocytes - Negative Esterase ECG Data Attestation: I personally reviewed and interpreted this ECG as follows: Prior ECG tracings: available for review Interpretation: Normal sinus rhythm rate 62 p.r. interval 170 QRS [address] changes MDM Narrative Medical decision making narrative: Patient is overall feeling much better he has been ambulatory in the ED without any difficulty. He has no focal deficits. He got better after Cheerios there may have been of brief hypoglycemic episode. Discussed with him frequent meals and hydration Discharge Plan Departure Patient Disposition: Home Clinical Impression: Orthostatic hypotension Discharge Date/Time: 10/06/20 13:39 Instructions: Orthostatic Hypotension Activity Restrictions/Additional Instructions: *You have been diagnosed with orthostatic hypotension *What to do: Continue to get up slowly. He frequent meals and drink water. *Continue to take medications as directed *Follow up with your primary care provider in 2-3 days *Return to ER if you should have worsening dizziness, off balance, chest pain, palpitations weakness, numbness, tingling or any new, worsening or concerning symptoms Prescriptions: No Action triamcinolone acetonide 0.1 % cream 1 applic TOP TID Qty: 80 RF: 0 losartan 50 mg Tablet 50 mg PO BID RF: 0 clopidogrel 75 mg Tablet 75 mg PO DAILY Qty: 30 RF: 0 amlodipine [Norvasc] 5 mg Tablet 10 mg PO DAILY Qty: 60 RF: 0 aspirin 81 mg Tablet,Delayed Release (Dr/Ec) 81 mg PO DAILY Qty: 30 RF: 0 rosuvastatin 10 mg Tablet 5 mg PO BEDTIME Qty: 30 RF: 0 Referrals: Anna Dumas MD [Primary Care Provider] -
[2020-10-06 12:15] LABS: Add Manual Diff / Slide Review NO; Basophils Absolute Auto 100 /uL (0-100); Basophils Percent Auto 0.9 % (0-2); Eosinophils Absolute Auto 100 /uL (0-450); Eosinophils Percent Auto 1.7 % (2-4); Hematocrit 43.7 % (41-53); Hemoglobin 14.8 g/dL (13.5-17.5); Lymphocytes Absolute Auto 1600 /uL (1100-4500); Lymphocytes Percent Auto 25.3 % (25-40); Mean Corpuscular HGB Conc 33.8 % (30-36); Mean Corpuscular Volume 88.7 fL (80-100); Monocytes Absolute Auto 600 /uL (0-900); Neutrophils Absolute Auto 4000 /uL (1500-7000); Neutrophils Percent Auto 63.1 % (50-75); Platelet Count 262 X10^3/uL (150-400); Red Blood Cell Count 4.92 X10^6/uL (4.5-5.9); Red Cell Distribution Width 13.7 % (11.6-14.8); White Blood Cell Count 6.3 X10^3/uL (4.5-11.0)
[2020-10-06 12:20] LABS: Alanine Aminotransferase 23 IU/L (<50); Albumin 4.1 g/dL (3.5-5.0); Albumin Globulin Ratio 1.3 (1.0-2.8); Alkaline Phosphatase 78 U/L (38-126); Aspartate Aminotransferase 32 IU/L (17-59); BUN Creatinine Ratio 24.5 (6-22); Bilirubin Total 0.6 mg/dL (0.2-1.3); Blood Urea Nitrogen 24 mg/dL (9-20); Calcium 8.8 mg/dL (8.4-10.2); Carbon Dioxide 28 mmol/L (22-32); Chloride 103 mmol/L (98-107); Estimated Glomerular Filt Rate > 60.0 mL/min (>60); Globulin 3.1 g/dL (1.7-4.1); Glucose 94 mg/dL (80-110); HEMOLYSIS < 15 (0-50); Potassium 4.2 mmol/L (3.4-5.1); Sodium 136 mmol/L (137-145); Total Protein 7.2 g/dL (6.3-8.2)
[2020-10-06] MEDS: SODIUM CHLORIDE 0.9% 1,000 ML 1000 ML IV (12:22)
[2020-10-06 12:30] VITALS: BP 161/76; PULSE 59; RESP 22; O2SAT 95
[2020-10-06 12:31] LABS: Troponin I < 0.012 ng/mL (0.01-0.034)
[2020-10-06 13:00] VITALS: PULSE 60; RESP 20; O2SAT 96
[2020-10-06 13:01] VITALS: BP 176/83; PULSE 59; RESP 20; O2SAT 97
== END 2020-10-06 13:39 | disposition home or self-care (01) ==
PROVIDERS: Emergency Provider Emergency Medicine; PCP Family Medicine
DX: I95.1 Orthostatic hypotension (principal)
CPT/HCPCS: 36415; 80053; 81003; 84484; 85025; 93005; 96360; 99284

== ENCOUNTER → 2020-12-14 15:00 | Outpatient (CLI) | payer MEDICARE, OTHER, SELFPAY ==
[2019-06-12 11:18] VITALS: BMI 25.8
[2020-12-14] MEDS: COVID-19 VACC #1, MRNA(MOD) 100 MCG/0.5 ML VIAL IM (15:07)
== END ==
PROVIDERS: PCP Family Medicine; Visit Provider Internal Medicine
DX: Z23 Encounter for immunization (principal)
CPT/HCPCS: 0011A; 91301

== ENCOUNTER → 2021-01-11 09:25 | Outpatient (CLI) | payer MEDICARE, OTHER, SELFPAY ==
[2019-06-12 11:18] VITALS: BMI 25.8
[2021-01-11] MEDS: COVID-19 VACC #2, MRNA(MOD) 100 MCG/0.5 ML VIAL IM (09:36)
== END ==
PROVIDERS: PCP Family Medicine; Visit Provider Internal Medicine
DX: Z23 Encounter for immunization (principal)
CPT/HCPCS: 0012A; 91301

== ENCOUNTER 2021-05-03 16:22 | Observation (INO) | payer MEDICARE, OTHER, SELFPAY ==
[2019-06-12 11:18] VITALS: BMI 25.8
[2021-05-03] VITALS (10 sets, daily range): BP systolic 133–197; BP diastolic 74–92; PULSE 61–76; RESP 18–21; TEMP 36.5–36.7; O2SAT 91–99; BMI 23.5
--- NOTE | 2021-05-03 16:17 | DI.CT.S_ITS ---
PROCEDURE: CT STROKE INDICATIONS: weakness, right leg TECHNIQUE: Noncontrast 4.5 mm thick angled axial sections acquired from the foramen magnum to the vertex, with coronal reformats. For radiation dose reduction, the following was used: automated exposure control, adjustment of mA and/or kV according to patient size. COMPARISON: [facility], MR, MR STROKE, 06/13/2019, 10:35. [facility], CT, CT HEAD/BRAIN WO CON, 06/12/2019, 9:23. FINDINGS: Image quality: Excellent. CSF spaces: Basal cisterns are patent. No extra-axial fluid collections. Ventricles are normal in size and shape. Brain: No midline shift. No intracranial masses or hemorrhage. Luna-white matter interface is normal but there is heterogeneity within the deep white matter of each hemisphere, consistent with microvascular atherosclerotic change.. Several small old lacunar infarcts within the sebastian radiata appear superimpose, previously present. Skull and face: Calvarium and visualized facial bones are intact, without suspicious lesions. Sinuses: Visualized sinuses and mastoids are clear. IMPRESSION: No acute disease. Relatively prominent microvascular atherosclerotic change in the deep white matter of each hemisphere, sebastian radiata, as has been previously the case. Follow-up by survey MR scanning open (noncontrast brain MRI close) may be warranted to determine whether there is or is not evidence of superimposed acute or subacute ischemic injury. This study fulfills neurological imaging criteria for inclusion or exclusion of acute stroke therapies based on available published neurological imaging guidelines. Dictated by: Andrez George M.D. on 05/03/2021 at 16:28 Approved by: Andrez George M.D. on 05/03/2021 at 16:30
--- NOTE | 2021-05-03 16:19 | DI.RAD.S_ITS ---
PROCEDURE: XR CHEST 1V INDICATIONS: Possible stroke TECHNIQUE: One view of the chest was acquired. COMPARISON: Located Within [facility], CR, XR CHEST 1V, 06/12/2019, 7:32. FINDINGS: Surgical changes and devices: None. Lungs and pleura: Lungs are clear. No pleural effusions or pneumothorax. Mediastinum: Mediastinal contours appear normal. Heart size is normal. Bones and chest wall: No suspicious bony lesions. Overlying soft tissues appear unremarkable. IMPRESSION: No acute cardiopulmonary pathology. Dictated by: Chau Cosme M.D. on 05/03/2021 at 16:44 Approved by: Chau Cosme M.D. on 05/03/2021 at 16:44
[2021-05-03 16:35] LABS: Add Manual Diff / Slide Review NO; Basophils Absolute Auto 0 /uL (0-100); Basophils Percent Auto 0.6 % (0-2); Eosinophils Absolute Auto 100 /uL (0-450); Eosinophils Percent Auto 1.5 % (2-4); Hematocrit 43.6 % (41-53); Hemoglobin 14.7 g/dL (13.5-17.5); Lymphocytes Absolute Auto 2200 /uL (1100-4500); Lymphocytes Percent Auto 34.1 % (25-40); Mean Corpuscular HGB Conc 33.7 % (30-36); Mean Corpuscular Hemoglobin 30.4 PG (26-34); Mean Corpuscular Volume 90.3 fL (80-100); Monocytes Absolute Auto 600 /uL (0-900); Monocytes Percent Auto 9.4 % (3-14); Neutrophils Absolute Auto 3500 /uL (1500-7000); Neutrophils Percent Auto 54.4 % (50-75); Platelet Count 231 X10^3/uL (150-400); Red Blood Cell Count 4.82 X10^6/uL (4.5-5.9); Red Cell Distribution Width 13.1 % (11.6-14.8); White Blood Cell Count 6.4 X10^3/uL (4.5-11.0)
--- NOTE | 2021-05-03 16:35 | DI.RAD.S_ITS ---
PROCEDURE: XR HIP W PEL IF DONE RT 2V INDICATIONS: right leg weakness TECHNIQUE: AP pelvis with lateral view(s) of the right hip(s). COMPARISON: None. FINDINGS: Bones: There is a mildly displaced fracture of the greater trochanter of the right proximal femur. Pelvic ring appears intact. No suspicious bony lesions. Mild joint space narrowing and periarticular osteophyte formation at the bilateral hip joints. Soft tissues: The visualized bowel gas pattern is normal. No suspicious soft tissue calcifications. IMPRESSION: Right greater trochanteric fracture. Dictated by: Briana Haskins M.D. on 05/03/2021 at 16:54 Approved by: Briana Haskins M.D. on 05/03/2021 at 16:55
--- NOTE | 2021-05-03 16:35 | DI.CT.S_ITS ---
PROCEDURE: CT ANGIO HEAD AND NECK INDICATIONS: right leg weakness TECHNIQUE: Noncontrast images were performed earlier in the day and not repeated. After the administration of intravenous contrast, 1 mm thick sections acquired from the aortic arch through the [place]. Post-contrast 4.5 mm thick sections then re-acquired from the foramen magnum to the vertex. 3-dimensional sbbuhbf-zqmkeuiqa-sjfvtvtitb (MIP) and/or volume rendering reformats were acquired of the central intracranial vasculature and neck separately. COMPARISON: [facility], MR, MR STROKE, 06/13/2019, 10:35. [facility], CT, CT HEAD/BRAIN WO CON, 06/12/2019, 9:23. [facility], CT, CT STROKE, 05/03/2021, 16:22. FINDINGS: Image quality: Excellent. BRAIN: CSF spaces: Ventricles are normal in size and shape. Basal cisterns are patent. No extra-axial fluid collections. Brain: No midline shift. No intracranial bleeds or masses. Luna-white matter interface appears intact. Skull and face: Calvarium and facial bones appear intact, without suspicious lesions. Orbits appear normal. Sinuses: Sinuses and mastoids are clear. HEAD CT ANGIOGRAPHY: Anterior circulation: Intracranial internal carotid arteries demonstrate atherosclerotic irregularity with calcification, with approximately 40% narrowing seen on each side. The flow within the paired anterior cerebral arteries is normal and symmetric. The flow within the middle cerebral arteries is normal and symmetric. The anterior communicating artery is seen. No aneurysms are seen. Posterior circulation: The right vertebral artery is within normal limits. On the left, there is focal calcification seen involving the mid V4 segment, with approximately 50% narrowing. normal appearing basilar artery. Flow within the posterior cerebral arteries is normal and symmetric. No aneurysms are seen. NECK CT ANGIOGRAPHY: Carotid system: The great vessels demonstrate a conventional anatomy as they arise from the aortic arch. The origins of the common carotid arteries appear patent. The common carotid arteries demonstrate normal caliber. The common carotid arteries are tortuous. The bifurcation regions are both widely patent. The internal carotid arteries demonstrate normal calibers and courses. Posterior circulation: The origins of the vertebral arteries both appear widely patent. The more superior extracranial portions of both vertebral arteries also demonstrate normal courses and calibers. They join to form a normal appearing basilar artery. Soft tissues: Visualized neck soft tissues demonstrate no suspicious abnormalities. There is a large hiatal hernia versus a gastric pull-through procedure. At least moderate coronary artery calcification is seen. Bones: No suspicious bony lesions. Visualized cervical spine appears normally aligned. Moderate cervical spine degenerative changes are seen. IMPRESSION: There is approximately 50% narrowing seen involving the mid left V4 segment. Otherwise, unremarkable intracranial arteries for age. Within the arteries of the neck, no hemodynamically significant stenosis can be seen. No masses or abnormal enhancement can be seen. At least moderate coronary artery calcification Moderate cervical spine degenerative change Large hiatal hernia versus gastric pull-through Any quantitative measurements of stenosis were performed using NASCET criteria. Dictated by: Chaparro Miller M.D. on 05/03/2021 at 16:28 Approved by: Chaparro Miller M.D. on 05/03/2021 at 16:33
--- NOTE | 2021-05-03 16:39 | ED.NEUROSD ---
HPI - Neuro Symptoms/Deficit General Chief Complaint: Dizziness Stated Complaint: Stroke symptoms Time Seen by Provider: 05/03/21 16:35 Source: patient and EMS Mode of arrival: EMS Limitations: no limitations History of Present Illness HPI Narrative: Patient is an 85-year-old male who presents as a code stroke with right leg weakness, last known well 1500. 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 Possibly had some mild slurring of speech which is not appreciated now. No head injury or consciousness. He is now complaining of right hip pain and hurts whenever he moves his right leg. Timing confirmed by: other Location: right leg On Anticoagulants: No Related Data Home Medications Medication Instructions Recorded Confirmed losartan 50 mg PO BID 12/28/18 07/13/20 Previous Rx's Medication Instructions Recorded amlodipine [Norvasc] 10 mg PO DAILY #60 tab 06/14/19 aspirin 81 mg PO DAILY #30 tab 06/14/19 clopidogrel 75 mg PO DAILY #30 tab 06/14/19 rosuvastatin 5 mg PO BEDTIME #30 tab 06/14/19 triamcinolone acetonide 0.1 % 1 applic TOP TID #80 gram 07/13/20 topical cream Allergies Allergy/AdvReac Type Severity Reaction Status Date / Time bee venom protein (honey bee) Allergy Verified 05/03/21 16:31 Review of Systems Review of Systems Narrative: GENERAL: Denies chills, fatigue, malaise, fever, sweats, travel HEENT: Denies sinus pain, ear pain, sore throat, difficulty swallowing, neck pain RESPIRATORY: Denies dyspnea, cough, wheezing, hemoptysis, sputum. CARDIOVASCULAR: Denies chest pain, palpitations, orthopnea, edema GASTROINTESTINAL: Denies nausea, vomiting, abdominal pain, diarrhea, constipation, melena. : Denies dysuria, frequency, incontinence, hematuria, urinary retention, flank pain. MUSCULOSKELETAL: Right hip pain see HPI SKIN: No rash, no erythema, no pruritus NEUROLOGIC: See HPI PSYCHIATRIC: No concerning psychosocial issues. 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 Brother No problems noted. Social History household members: spouse Smoking Status: Former smoker alcohol intake: current Smoking Status: Former smoker alcohol intake frequency: holidays/special occasions only Substance Use Type: does not use Exam Initial Vital Signs Initial Vital Signs: Vital Signs Temperature 97.7 F 05/03/21 16:26 Pulse Rate 62 05/03/21 16:26 Respiratory Rate 18 05/03/21 16:26 Blood Pressure 197/91 H 05/03/21 16:26 Pulse Oximetry 99 05/03/21 16:26 GENERAL: Alert well-appearing 85-year-old male HEENT: Head atraumatic,EOMI, pupils reactive, face symmetric, moist mucous membranes CARDIOVASCULAR: Regular rate and rhythm without murmurs, rubs or gallops. RESPIRATORY: Breath sounds equal bilaterally, no wheezes rales or rhonchi. ABDOMEN: Soft, nontender. Normoactive bowel sounds all 4 quadrants. No guarding or rebound. EXTREMITIES: Normal range of motion, no clubbing or edema. Neurovascularly intact Tender right hip able to flex and extend right leg and actually hold for 5 seconds but pain with internal and external rotation NEUROLOGICAL: Alert and oriented x3.Normal gait and speech. Cranial nerves II through XII grossly intact. Good jrstst-wg-[id number], good jqsp-js-bdob, strength equal bilaterally, no dysarthria or aphasia, sensation in tact to soft touch bilaterally, no visual changes, no facial droop SKIN: Warm, dry, no laceration, no petechiae, no rashes or lesions. Scores NIH Stroke Scale Level of Conciousness: Alert, keenly responsive Ask month/age: Answers both questions correctly. Open/close eyes, close hand: Performs both tasks correctly Best gaze horizontal: Normal Visual layton: No visual loss Facial palsy: Normal symetrical movement Left arm drift: No drift for full 10 sec Right arm drift: No drift for full 10 sec Left leg drift: No drift for full 5 sec Right leg drift: No drift for full 5 sec Limb ataxia: Absent Sensory on face/arms/legs: Normal, no sensory loss Best language: No aphasia, normal Dysarthria: Normal Extinction or inattention: No abnormality Total NIH Stroke scale score: 0 Course Orders Ordered: ED Orders 05/03/21 16:17 CT Stroke Stat 05/03/21 16:19 XR chest 1V Stat EKG-12 Lead Stat 05/03/21 16:25 Complete Blood Count AUTO DIFF Stat Comprehensive Metabolic Panel Stat Troponin & CK Cardiac Panel Stat 05/03/21 16:35 CT angio head and neck Stat XR hip w pel if done RT 2V Stat 05/03/21 17:56 CT pelvis wo con Stat 05/03/21 18:15 Urine Drug Screen, Rapid Stat Discontinued Medications Morphine Sulfate (Morphine 2 Mg/Ml Inj) 2 mg IV NOW ONE Stop: 05/03/21 17:49 Last Admin: 05/03/21 17:52 Dose: 2 mg Documented by: CTRDEANNA Vital Signs Vital signs: Vital Signs - 8 hr 05/03/21 16:26 05/03/21 16:29 05/03/21 16:30 Temperature 97.7 F Pulse Rate 62 62 62 Respiratory Rate 18 Blood Pressure 197/91 H 197/91 H Pulse Oximetry 99 95 95 05/03/21 17:00 05/03/21 17:30 Temperature Pulse Rate 61 67 Respiratory Rate 19 21 Blood Pressure Pulse Oximetry 93 MDM - Neuro Symptoms/Deficit Lab Data Attestation: I reviewed the patient's lab results. Result diagrams: 05/03/21 16:25 05/03/21 16:25 Labs: Lab Results 05/03/21 05/03/21 Range/Units 16:25 16:25 WBC 6.4 (4.5-11.0) X10^3/uL RBC 4.82 (4.5-5.9) X10^6/uL Hgb 14.7 (13.5-17.5) g/dL Hct 43.6 (41-53) % MCV 90.3 (80-100) fL MCH 30.4 (26-34) PG MCHC 33.7 (30-36) % RDW 13.1 (11.6-14.8) % Plt Count 231 (150-400) X10^3/uL Neut % (Auto) 54.4 (50-75) % Lymph % (Auto) 34.1 (25-40) % [place] % (Auto) 9.4 (3-14) % Eos % (Auto) 1.5 L (2-4) % Baso % (Auto) 0.6 (0-2) % Neut # (Auto) 3500 (8573-8727) /uL Lymph # (Auto) 2200 (4567-3243) /uL [place] # (Auto) 600 (0-900) /uL Eos # (Auto) 100 (0-450) /uL Baso # (Auto) 0 (0-100) /uL Sodium 136 L (137-145) mmol/L Potassium 3.8 (3.4-5.1) mmol/L Chloride 104 (98-107) mmol/L Carbon Dioxide 26 (22-32) mmol/L BUN 29 H (9-20) mg/dL Creatinine 0.96 (0.66-1.25) mg/dL Estimated GFR > 60.0 (>60) mL/min BUN/Creatinine Ratio 30.2 H (6-22) Glucose 92 (80-110) mg/dL Calcium 8.6 (8.4-10.2) mg/dL Total Bilirubin 0.4 (0.2-1.3) mg/dL AST 33 (17-59) IU/L ALT 24 (<50) IU/L Alkaline Phosphatase 72 (38-126) U/L Total Creatine Kinase 81 (55-170) U/L CK-MB (CK-2) TNP CK-MB (CK-2) Rel Index TNP Troponin I < 0.012 (0.01-0.034) ng/mL Total Protein 6.9 (6.3-8.2) g/dL Albumin 3.9 (3.5-5.0) g/dL Globulin 3.0 (1.7-4.1) g/dL Albumin/Globulin Ratio 1.3 (1.0-2.8) Point of Care Testing Glucose POC [address] scan - head: Radiologist's Impression: PROCEDURE: CT STROKE INDICATIONS: weakness, right leg TECHNIQUE: Noncontrast 4.5 mm thick angled axial sections acquired from the foramen magnum to the vertex, with coronal reformats. For radiation dose reduction, the following was used: automated exposure control, adjustment of mA and/or kV according to patient size. COMPARISON: [facility], MR, MR STROKE, 06/13/2019, 10:35. [facility], CT, CT HEAD/BRAIN WO CON, 06/12/2019, 9:23. FINDINGS: Image quality: Excellent. CSF spaces: Basal cisterns are patent. No extra-axial fluid collections. Ventricles are normal in size and shape. Brain: No midline shift. No intracranial masses or hemorrhage. Luna-white matter interface is normal but there is heterogeneity within the deep white matter of each hemisphere, consistent with microvascular atherosclerotic change.. Several small old lacunar infarcts within the sebastian radiata appear superimpose, previously present. Skull and face: Calvarium and visualized facial bones are intact, without suspicious lesions. Sinuses: Visualized sinuses and mastoids are clear. IMPRESSION: No acute disease. Relatively prominent microvascular atherosclerotic change in the deep white matter of each hemisphere, sebastian radiata, as has been previously the case. Follow-up by survey MR scanning open (noncontrast brain MRI close) may be warranted to determine whether there is or is not evidence of superimposed acute or subacute ischemic injury. This study fulfills neurological imaging criteria for inclusion or exclusion of acute stroke therapies based on available published neurological imaging guidelines. Dictated by: Andrez George M.D. on 05/03/2021 at 16:28 CTA - brain/neck: Radiologist's Impression: PROCEDURE: CT STROKE INDICATIONS: weakness, right leg TECHNIQUE: Noncontrast 4.5 mm thick angled axial sections acquired from the foramen magnum to the vertex, with coronal reformats. For radiation dose reduction, the following was used: automated exposure control, adjustment of mA and/or kV according to patient size. COMPARISON: [facility], MR, MR STROKE, 06/13/2019, 10:35. [facility], CT, CT HEAD/BRAIN WO CON, 06/12/2019, 9:23. FINDINGS: Image quality: Excellent. CSF spaces: Basal cisterns are patent. No extra-axial fluid collections. Ventricles are normal in size and shape. Brain: No midline shift. No intracranial masses or hemorrhage. Luna-white matter interface is normal but there is heterogeneity within the deep white matter of each hemisphere, consistent with microvascular atherosclerotic change.. Several small old lacunar infarcts within the sebastian radiata appear superimpose, previously present. Skull and face: Calvarium and visualized facial bones are intact, without suspicious lesions. Sinuses: Visualized sinuses and mastoids are clear. IMPRESSION: No acute disease. Relatively prominent microvascular atherosclerotic change in the deep white matter of each hemisphere, sebastian radiata, as has been previously the case. Follow-up by survey MR scanning open (noncontrast brain MRI close) may be warranted to determine whether there is or is not evidence of superimposed acute or subacute ischemic injury. This study fulfills neurological imaging criteria for inclusion or exclusion of acute stroke therapies based on available published neurological imaging guidelines. Dictated by: Andrez George M.D. on 05/03/2021 at 16:28 Extremity x-ray #1: Radiologist's Impression: PROCEDURE: XR HIP W PEL IF DONE RT 2V INDICATIONS: right leg weakness TECHNIQUE: AP pelvis with lateral view(s) of the right hip(s). COMPARISON: None. FINDINGS: Bones: There is a mildly displaced fracture of the greater trochanter of the right proximal femur. Pelvic ring appears intact. No suspicious bony lesions. Mild joint space narrowing and periarticular osteophyte formation at the bilateral hip joints. Soft tissues: The visualized bowel gas pattern is normal. No suspicious soft tissue calcifications. IMPRESSION: Right greater trochanteric fracture. Dictated by: Briana Haskins M.D. on 05/03/2021 at 16:54 Chest x-ray: Radiologist's Impression: PROCEDURE: XR CHEST 1V INDICATIONS: Possible stroke TECHNIQUE: One view of the chest was acquired. COMPARISON: [facility], XR CHEST 1V, 06/12/2019, 7:32. FINDINGS: Surgical changes and devices: None. Lungs and pleura: Lungs are clear. No pleural effusions or pneumothorax. Mediastinum: Mediastinal contours appear normal. Heart size is normal. Bones and chest wall: No suspicious bony lesions. Overlying soft tissues appear unremarkable. IMPRESSION: No acute cardiopulmonary pathology. Dictated by: Chau Cosme M.D. on 05/03/2021 at 16:44 Approved by: Chau Cosme M.D. on 05/03/2021 at 16:44 CT scan - abdomen/pelvis: Radiologist's Impression: PROCEDURE: CT PEL WO CON INDICATIONS: fracture right TECHNIQUE: Noncontrast 3 mm axial sections acquired through the bony pelvis, with coronal and sagittal reformatting. COMPARISON: [facility], CR, XR HIP W PEL IF DONE RT 2V, 05/03/2021, 16:41. FINDINGS: Image quality: Excellent. Bones: There is a horizontal minimally distracted fracture through the greater trochanter of the right femur. Femoral neck proper remains intact. Left proximal femur unremarkable. Bilateral acetabular joint space narrowing noted. Pelvic ring intact. Soft tissues: Prosthetic hypertrophy elevates the bladder floor. Prostate measures 4 point 9 x 6.0 x 7.1 cm overall. Urinary bladder is distended with contrast. There is a right inguinal hernia containing fat without bowel involvement. Multiple diverticula arise from the sigmoid colon without evidence of diverticulitis. IMPRESSION: Minimally distracted right greater trochanteric femoral fracture. No femoral neck fracture. Incidental diverticulosis without diverticulitis, prostatic hypertrophy and right inguinal hernia. Dictated by: Altaf Rodriguez M.D. on 05/03/2021 at 17:27 Approved by: Altaf Rodriguez M.D. on 05/03/2021 at 17:39 ECG Data Attestation: I personally reviewed and interpreted this ECG as follows: Prior ECG tracings: available for review Interpretation: Sinus rhythm rate 55 p.r. interval 178 QRS [address] changes or T-wave inversions MDM Narrative Medical decision making narrative: Patient arrived as a code stroke, his symptoms are not quite convincing for a stroke. He certainly can lift his right leg this bite a fracture and his NIH is 0. I do not appreciate any slurring of speech. Dr. Maharaj updated patient's symptoms test results request CT of pelvis Dr. Tyson accepts patient for admission Nathe-non operative treatment at this time. Toe-touch pain control weight-bearing with trochanteric precautions Discharge Plan Departure Patient Disposition: Admitted As Inpatient Clinical Impression: Hip fracture Admit Date/Time: 05/03/21 18:05 Admit Provider: Raghu Tyson
[2021-05-03 16:42] LABS: Alanine Aminotransferase 24 IU/L (<50); Albumin 3.9 g/dL (3.5-5.0); Albumin Globulin Ratio 1.3 (1.0-2.8); Alkaline Phosphatase 72 U/L (38-126); Aspartate Aminotransferase 33 IU/L (17-59); BUN Creatinine Ratio 30.2 (6-22); Bilirubin Total 0.4 mg/dL (0.2-1.3); Blood Urea Nitrogen 29 mg/dL (9-20); Calcium 8.6 mg/dL (8.4-10.2); Carbon Dioxide 26 mmol/L (22-32); Chloride 104 mmol/L (98-107); Creatine Kinase 81 U/L (55-170); Estimated Glomerular Filt Rate > 60.0 mL/min (>60); Glucose 92 mg/dL (80-110); HEMOLYSIS 19 (0-50); Potassium 3.8 mmol/L (3.4-5.1); Sodium 136 mmol/L (137-145); Total Protein 6.9 g/dL (6.3-8.2)
--- NOTE | 2021-05-03 16:49 | RT ---
Responded to Code Stroke, pt awake and airway patent, no distress noted and on room air.
[2021-05-03 16:53] LABS: Troponin I < 0.012 ng/mL (0.01-0.034)
[2021-05-03] MEDS: MORPHINE 2 MG/ML INJ IV (17:52)
--- NOTE | 2021-05-03 17:56 | DI.CT.S_ITS ---
PROCEDURE: CT PEL WO CON INDICATIONS: fracture right TECHNIQUE: Noncontrast 3 mm axial sections acquired through the bony pelvis, with coronal and sagittal reformatting. COMPARISON: [facility], CR, XR HIP W PEL IF DONE RT 2V, 05/03/2021, 16:41. FINDINGS: Image quality: Excellent. Bones: There is a horizontal minimally distracted fracture through the greater trochanter of the right femur. Femoral neck proper remains intact. Left proximal femur unremarkable. Bilateral acetabular joint space narrowing noted. Pelvic ring intact. Soft tissues: Prosthetic hypertrophy elevates the bladder floor. Prostate measures 4 point 9 x 6.0 x 7.1 cm overall. Urinary bladder is distended with contrast. There is a right inguinal hernia containing fat without bowel involvement. Multiple diverticula arise from the sigmoid colon without evidence of diverticulitis. IMPRESSION: Minimally distracted right greater trochanteric femoral fracture. No femoral neck fracture. Incidental diverticulosis without diverticulitis, prostatic hypertrophy and right inguinal hernia. Dictated by: Altaf Rodriguez M.D. on 05/03/2021 at 17:27 Approved by: Altaf Rodriguez M.D. on 05/03/2021 at 17:39
--- NOTE | 2021-05-03 18:22 | P.HP_ITS ---
History of Present Illness History of Present Illness Date Patient Seen: 05/03/21 Chief complaint: Stroke symptoms Narrative: Jaron Zayas is an 83-year-old male with a past medical history si gnificant for CAD based on recent CTA, prior syncope, but low risk outpatient stress testing and holter monitor, hypertension, hyperlipidemia in a medically treated, short-term memory impairment, probable BPH, and probable MARSHALL not on CPAP who initially presented to the emergency room as a code stroke with right leg weakness. His story to me is that he stood up and suddenly his right leg gave out and he fell down, but does not remember exactly what side, but he told the ER his right. He could not move his right leg due to the sudden onset of pain with any movement. He denied any numbness or tingling he denied any slurred speech. He denied any palpitations, shortness of breath. He has had no recent dyspnea on exertion, shortness of breath, lower extremity edema, chest pain, chest pressure, fever, chills, abdominal pain, nausea, vomiting. He does urinate about 4 times nightly. In the emergency room, the patient was mildly hypertensive, but the remainder of his vital signs are unremarkable. Laboratory evaluation showed an unremarkable CBC, no significant abnormalities in his chemistry panel, and a negative troponin. Urine drug screen was negative. COVID-19 testing is currently pending. Imaging including chest x-ray, hip x-ray, hip CT scan, and CT angiogram of his head and neck showed no acute CVA but evidence of old prior strokes and a mildly displaced fracture of his right greater trochanter. Per ER provider orthopedic surgery states non-operative management. Patient History Medical History BPH (benign prostatic hyperplasia) Elevated cholesterol Hypertension Left inguinal hernia Local reaction to bee sting Memory deficit Surgical History H/O cataract removal with insertion of prosthetic lens History of right inguinal hernia repair History of right inguinal hernia repair Family & Social History Family History Mother Gall bladder disease Father No problems noted. Brother No problems noted. Social History: household members spouse Safety & Behavioral: Feels Safe in Current Yes Environment Been Physically Hurt or No Threatened By a Person Tobacco & Substance use: Smoking Status Former smoker alcohol intake current alcohol intake frequency holiday/special occasion Substance Use Type does not use Meds Home Medications and Allergies Home Medications Medication Instructions Recorded Confirmed Type losartan 50 mg PO BID 12/28/18 07/13/20 History amlodipine [Norvasc] 10 mg PO DAILY #60 tab 06/14/19 07/13/20 Rx aspirin 81 mg PO DAILY #30 tab 06/14/19 07/13/20 Rx clopidogrel 75 mg PO DAILY #30 tab 06/14/19 07/13/20 Rx rosuvastatin 5 mg PO BEDTIME #30 tab 06/14/19 07/13/20 Rx triamcinolone acetonide 0.1 % 1 applic TOP TID #80 gram 07/13/20 07/13/20 Rx topical cream Allergies Allergy/AdvReac Type Severity Reaction Status Date / Time bee venom protein (honey bee) Allergy Verified 05/03/21 16:31 Review of Systems Review of Systems Narrative: All other systems reviewed with the patient and are negative unless otherwise stated. Exam Vital Signs (past 8 hours): - 05/03/21 16:26 05/03/21 16:29 05/03/21 16:30 Temperature 97.7 F Pulse Rate 62 62 62 Respiratory Rate 18 Blood Pressure 197/91 H 197/91 H Pulse Oximetry 99 95 95 05/03/21 17:00 05/03/21 17:30 Temperature Pulse Rate 61 67 Respiratory Rate 19 21 Blood Pressure Pulse Oximetry 93 Oxygen Delivery Method Room Air Narrative Exam Narrative: GENERAL APPEARANCE: Well developed, well nourished, in no acute distress. SKIN: Inspection of the skin reveals no rashes, ulcerations or petechiae. HEENT: Normocephalic atraumatic, extraocular muscles are intact, oropharynx is clear and mucous membranes are moist, neck is supple without adenopathy NECK: Supple and symmetric. There was no thyroid enlargement, and no tenderness, or masses were felt. CHEST: Normal AP diameter and normal contour without any kyphoscoliosis. LUNGS: Auscultation of the lungs revealed no wheezes, rhonchi, or rales. CARDIOVASCULAR: There was a regular rate and rhythm without any murmurs, gall ops, rubs. Peripheral pulses were 2+ and symmetric. ABDOMEN: Soft and nontender with normal bowel sounds. No ascites was noted. MUSCULOSKELETAL: There were no joint effusions noted. Muscle strength and tone grossly normal. Able to wiggle his toes bilaterally. Right leg is shortened and externally rotated. EXTREMITIES: No cyanosis, clubbing or edema. NEUROLOGIC: Alert and oriented x 3. Normal affect. Gait was normal. Strength is +5/5 in the Upper Extremities and Lower Extremities Bilaterally. Sensation to touch was normal. Objective Imaging xr hip: Radiologist's impression: PROCEDURE: XR HIP W PEL IF DONE RT 2V INDICATIONS: right leg weakness TECHNIQUE: AP pelvis with lateral view(s) of the right hip(s). COMPARISON: None. FINDINGS: Bones: There is a mildly displaced fracture of the greater trochanter of the right proximal femur. Pelvic ring appears intact. No suspicious bony lesions. Mild joint space narrowing and periarticular osteophyte formation at the bilateral hip joints. Soft tissues: The visualized bowel gas pattern is normal. No suspicious soft tissue calcifications. IMPRESSION: Right greater trochanteric fracture. CT scan - head: Radiologist's impression: PROCEDURE: CT ANGIO HEAD AND NECK INDICATIONS: right leg weakness TECHNIQUE: Noncontrast images were performed earlier in the day and not repeated. After the administration of intravenous contrast, 1 mm thick sections acquired from the aortic arch through the [place] of [place]. Post-contrast 4.5 mm thick sections then re- acquired from the foramen magnum to the vertex. 3-dimensional hrbesmz-zaxzarhzl-[id number] (MIP) and/or volume rendering reformats were acquired of the central intracranial vasculature and neck separately. COMPARISON: [facility], MR, MR STROKE, 06/13/2019, 10:35. [facility], CT, CT HEAD/BRAIN WO CON, 06/12/2019, 9:23. [facility], CT, CT STROKE, 05/03/2021, 16:22. FINDINGS: Image quality: Excellent. BRAIN: CSF spaces: Ventricles are normal in size and shape. Basal cisterns are patent. No extra-axial fluid collections. Brain: No midline shift. No intracranial bleeds or masses. Luna-white matter interface appears intact. Skull and face: Calvarium and facial bones appear intact, without suspicious lesions. Orbits appear normal. Sinuses: Sinuses and mastoids are clear. HEAD CT ANGIOGRAPHY: Anterior circulation: Intracranial internal carotid arteries demonstrate atherosclerotic irregularity with calcification, with approximately 40% narrowing seen on each side. The flow within the paired anterior cerebral arteries is normal and symmetric. The flow within the middle cerebral arteries is normal and symmetric. The anterior communicating artery is seen. No aneurysms are seen. Posterior circulation: The right vertebral artery is within normal limits. On the left, there is focal calcification seen involving the mid V4 segment, with approximately 50% narrowing. normal appearing basilar artery. Flow within the posterior cerebral arteries is normal and symmetric. No aneurysms are seen. NECK CT ANGIOGRAPHY: Carotid system: The great vessels demonstrate a conventional anatomy as they arise from the aortic arch. The origins of the common carotid arteries appear patent. The common carotid arteries demonstrate normal caliber. The common carotid arteries are tortuous. The bifurcation regions are both widely patent. The internal carotid arteries demonstrate normal calibers and courses. Posterior circulation: The origins of the vertebral arteries both appear widely patent. The more superior extracranial portions of both vertebral arteries also demonstrate normal courses and calibers. They join to form a normal appearing basilar artery. Soft tissues: Visualized neck soft tissues demonstrate no suspicious abnormalities. There is a large hiatal hernia versus a gastric pull-through procedure. At least moderate coronary artery calcification is seen. Bones: No suspicious bony lesions. Visualized cervical spine appears normally aligned. Moderate cervical spine degenerative changes are seen. IMPRESSION: There is approximately 50% narrowing seen involving the mid left V4 segment. Otherwise, unremarkable intracranial arteries for age. Within the arteries of the neck, no hemodynamically significant stenosis can be seen. CT head without: Radiologist's impression: PROCEDURE: CT STROKE INDICATIONS: weakness, right leg TECHNIQUE: Noncontrast 4.5 mm thick angled axial sections acquired from the foramen magnum to the vertex, with coronal reformats. For radiation dose reduction, the following was used: automated exposure control, adjustment of mA and/or kV according to patient size. COMPARISON: [facility], MR, MR STROKE, 06/13/2019, 10:35. [facility], CT, CT HEAD/BRAIN WO CON, 06/12/2019, 9:23. FINDINGS: Image quality: Excellent. CSF spaces: Basal cisterns are patent. No extra-axial fluid collections. Ventricles are normal in size and shape. Brain: No midline shift. No intracranial masses or hemorrhage. Luna-white matter interface is normal but there is heterogeneity within the deep white matter of each hemisphere, consistent with microvascular atherosclerotic change.. Several small old lacunar infarcts within the sebastian radiata appear superimpose, previously present. Skull and face: Calvarium and visualized facial bones are intact, without suspicious lesions. Sinuses: Visualized sinuses and mastoids are clear. IMPRESSION: No acute disease. Relatively prominent microvascular atherosclerotic change in the deep white matter of each hemisphere, sebastian radiata, as has been previously the case. Follow-up by survey MR scanning open (noncontrast brain MRI close) may be warranted to determine whether there is or is not evidence of superimposed acute or subacute ischemic injury. This study fulfills neurological imaging criteria for inclusion or exclusion of acute stroke therapies based on available published neurological imaging guideline Labs Result Diagrams: 05/03/21 16:25 05/03/21 16:25 Labs: Laboratory Results - last 24 hr 05/03/21 05/03/21 16:25 16:25 WBC 6.4 RBC 4.82 Hgb 14.7 Hct 43.6 MCV 90.3 MCH 30.4 MCHC 33.7 RDW 13.1 Plt Count 231 Neut % (Auto) 54.4 Lymph % (Auto) 34.1 [place] % (Auto) 9.4 Eos % (Auto) 1.5 L Baso % (Auto) 0.6 Neut # (Auto) 3500 Lymph # (Auto) 2200 [place] # (Auto) 600 Eos # (Auto) 100 Baso # (Auto) 0 Sodium 136 L Potassium 3.8 Chloride 104 Carbon Dioxide 26 BUN 29 H Creatinine 0.96 Estimated GFR > 60.0 BUN/Creatinine Ratio 30.2 H Glucose 92 Calcium 8.6 Total Bilirubin 0.4 AST 33 ALT 24 Alkaline Phosphatase 72 Total Creatine Kinase 81 CK-MB (CK-2) TNP CK-MB (CK-2) Rel Index TNP Troponin I < 0.012 Total Protein 6.9 Albumin 3.9 Globulin 3.0 Albumin/Globulin Ratio 1.3 Assessment & Plan Assessment & Plan narrative: Jaron Zayas is an 83-year-old male with a past medical history significant for CAD based on CTA, HTN, prior multiple bilateral CVA, HTN, HLD, probable MARSHALL, mild cognitive impairment who is admitted after a possible syncopal episode vs acute onset of R leg weakness ultimately suffering a right femur fracture, admitted to medicine for further management. 1. Right greater trochanteric fracture, likely pathologic, present on admission - non operative management according to ER provider per Dr. Maharaj. Recommended hip precautions and toe-touch weight-bearing right lower extremity. -likely pathologic secondary to osteoporosis given possible mechanism of fracture. -continue pain control with oxycodone, Tylenol. Will need to adjust as necessary. 2. 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 - negative troponin, history not consistent with CVA. Medications not likely to change as a result of MRI as he is already on secondary prevention. - prior stress testing was low risk, no evidence of arrhythmia on outpatient Holter monitor. Will continue telemetry. -continue home medications 3. Hypertension, chronic, present on admission. active -likely elevated secondary to pain, continue home medications 4. Hyperlipidemia, chronic, present on admission. 5. BPH with LUTS, chronic, present on admission. Active. - start flomax, reports 4x nightly urination. CT scan shows enlarged prostate. 7. 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 Stable. - OT consultation as noted above. Code status: DNR/DNI, surrogate decision maker is the patient's spouse. Dispo: Admit under observation status currently for non-operative R hip fracture, dispo unclear but will need PT/OT evaluations. DVT: Lovenox daily
[2021-05-03 18:36] LABS: UR Morphine/Opiate cutoff 300 Negative (Negative); Ur Creatinine Normal (Normal); Ur Specific Gravity Normal (Normal); Urine Amphetamines Negative (Negative); Urine Barbiturates Negative (Negative); Urine Benzodiazepines Negative (Negative); Urine Cocaine Negative (Negative); Urine MDMA Negative (Negative); Urine Methadone Negative (Negative); Urine Methamphetamines Negative (Negative); Urine Oxycodone Negative (Negative); Urine Phencyclidine Negative (Negative); Urine Tetrahydrocannabinol Negative (Negative); Urine Tricyclic Antidepressant Negative (Negative); Urine pH Normal (Normal)
--- NOTE | 2021-05-03 19:07 | PC.ADMIT ---
[id number] Admission Note: The patient,Jaron Zayas,85 y/o, was given written information regarding hospital policies, unit procedures and contact persons. Patient's smoking status: Former smoker. Pt arrived from ED via stretcher, slider board used to transfer to bed. Oriented to room and call system. in for rounding. Tele placed on. Urinal at bedside. Bed alarm on. Vital Signs - 8 hr 05/03/21 16:26 05/03/21 16:29 05/03/21 16:30 Temperature 97.7 F Pulse Rate 62 62 62 Respiratory Rate 18 Blood Pressure 197/91 H 197/91 H Pulse Oximetry 99 95 95 05/03/21 17:00 05/03/21 17:30 05/03/21 18:10 Temperature Pulse Rate 61 67 69 Respiratory Rate 19 21 Blood Pressure Pulse Oximetry 93 93 05/03/21 18:22 Temperature Pulse Rate 67 Respiratory Rate 19 Blood Pressure 183/92 H Pulse Oximetry 95
[2021-05-03 19:57] LABS: COVID19 - ADMIT (NP swab/PCR) Negative (Negative)
[2021-05-03] MEDS: OXYCODONE IR 5 MG TABLET PO (21:07)
[2021-05-04] VITALS (12 sets, daily range): BP systolic 134–150; BP diastolic 68–95; PULSE 69–79; RESP 16–20; TEMP 36.7–37.4; O2SAT 92–94
[2021-05-04 06:24] LABS: Add Manual Diff / Slide Review NO; Basophils Absolute Auto 100 /uL (0-100); Basophils Percent Auto 0.7 % (0-2); Eosinophils Absolute Auto 100 /uL (0-450); Eosinophils Percent Auto 1.1 % (2-4); Hematocrit 41.2 % (41-53); Hemoglobin 14.1 g/dL (13.5-17.5); Lymphocytes Absolute Auto 1200 /uL (1100-4500); Lymphocytes Percent Auto 14.9 % (25-40); Mean Corpuscular HGB Conc 34.2 % (30-36); Mean Corpuscular Hemoglobin 30.7 PG (26-34); Mean Corpuscular Volume 89.8 fL (80-100); Monocytes Absolute Auto 800 /uL (0-900); Monocytes Percent Auto 9.9 % (3-14); Neutrophils Absolute Auto 6000 /uL (1500-7000); Neutrophils Percent Auto 73.4 % (50-75); Platelet Count 203 X10^3/uL (150-400); Red Blood Cell Count 4.59 X10^6/uL (4.5-5.9); Red Cell Distribution Width 13.5 % (11.6-14.8); White Blood Cell Count 8.2 X10^3/uL (4.5-11.0)
[2021-05-04 06:31] LABS: BUN Creatinine Ratio 31.8 (6-22); Blood Urea Nitrogen 28 mg/dL (9-20); Calcium 8.5 mg/dL (8.4-10.2); Carbon Dioxide 24 mmol/L (22-32); Chloride 105 mmol/L (98-107); Estimated Glomerular Filt Rate > 60.0 mL/min (>60); Glucose 111 mg/dL (80-110); HEMOLYSIS < 15 (0-50); Magnesium 1.8 mg/dL (1.6-2.3); Potassium 3.8 mmol/L (3.4-5.1); Sodium 135 mmol/L (137-145)
[2021-05-04] MEDS: ENOXAPARIN 40 MG/0.4 ML SYRINGE SUBCUT (08:50)
[2021-05-04] MEDS: TAMSULOSIN 0.4 MG CAPSULE PO (08:50)
[2021-05-04] MEDS: OXYCODONE IR 5 MG TABLET PO ×2 (08:52→17:27)
--- NOTE | 2021-05-04 09:25 | PT.IIE ---
Current Diagnoses Pathological fracture, right femur, initial encounter for fracture (05/03/21) Surgical History (Last Reviewed 05/04/21 @ 11:14 by Doni Maharaj MD) H/O cataract removal with insertion of prosthetic lens History of right inguinal hernia repair History of right inguinal hernia repair Medical History (Last Reviewed 05/04/21 @ 11:14 by Doni Maharaj MD) BPH (benign prostatic hyperplasia) Elevated cholesterol Hypertension Left inguinal hernia Local reaction to bee sting Memory deficit Physical Therapy Inpatient Evaluation/Re-Eval M1 PT/OT-IP Prior Functional Status Start: 05/04/21 12:09 Freq: NEEDED Status: Active Protocol: Document 05/04/21 12:09 CGR (Rec: 05/04/21 12:32 CGR [id number]) Medical Review Prior Functional Status Medical History Reviewed Yes Communication Pt is an effective verbal communicator but is IGIUGIG without hearing aide. Mobility and Gait Pt was IND in all functional mobility prior to admit. Activities of Daily Living and IADL's Pt was IND in all ADLs but had assist with library paraprofessional 3 days a week, 4 hours a day. Social History Household Members spouse Living Arrangements House Number of Floors (Floors) One Floor Number of Stairs To Enter/Railing? No steps to enter Home Environment Standard Height Toilet,Walk in Shower,Built-In Shower Seat Home Equipment Front Wheel Walker,Manual Wheelchair,Grab Bars Near Toilet,Grab Bars In Shower Employment Status Retired Additional Social History Comment Pt lives with his who recently had a stroke and is recovering and uses a 4ww for her mobility at time of eval. M2 PT-IP Current Condition Start: 05/04/21 12:50 Freq: NEEDED Status: Active Protocol: Document 05/04/21 09:25 AB (Rec: 05/04/21 13:05 AB [id number]) Physical Therapy Current Condition Current Condition Evaluation Date 05/04/21 Treatment Diagnosis R trochanteric fx; difficulty in walking Onset Date 05/03/21 Precautions Other Precautions trochanteric precaution RLE Weight Bearing Status Weight Bearing Status Touch Down Weight Bearing Allowed Weight Bearing Amount (enter % RLE: TTWB or #) (%) M3 PT-IP Subjective Start: 05/04/21 12:50 Freq: NEEDED Status: Active Protocol: Document 05/04/21 09:25 AB (Rec: 05/04/21 13:05 [email or web address]) Subjective Physical Therapy Visit Type Type Initial Evaluation Visit Start Time 09:25 Visit Stop Time 10:15 Total Visit Minutes 50 Number of MAINTENANCE WELDER Visits 0 Physical Therapy Visit Comments Patient Comments ptis agreeable to do PT Therapy Pain Assessment Pain When Pain Assessed During Mobility Location Right Hip Scale Used pain scale not stated Pain Behaviors Calling Out,Facial Grimacing, Guarding,Wincing Pain Management Techniques Elevation,Modification of Treatment,Re-positioning, Timing of Activity with Medications M4 PT-IP Mobility and Gait Start: 05/04/21 12:50 Freq: NEEDED Status: Active Protocol: Document 05/04/21 09:25 AB (Rec: 05/04/21 13:05 [email or web address]) PT-Bed Mobility Assessment Supine to Sit Supine to Sit Maximum Assistance,2 Person Assistance Scooting Scooting to Edge of Bed Maximum Assistance PT-Transfer Assessment Sit to and From Stand Sit to and from Stand Maximum Assistance,2 Person Assistance,Use of Upper Extremities Equipment Transfer Assistive Device Gait Belt,Front Wheeled Walker Orthotic/Prosthetic Devices or Brace: No Transfers Transfer Destination Chair Transfer Technique Stand Step Pivot Transfer Ability Level of Assist Maximum Assistance,2 Person Assistance,Use of Upper Extremities Comments Mobility Comments educated pt on R hip trochanteric precaution and weight bearing restriction. completed heel slides prior to mobility. pt completed supine to sit max Ax 2 and max cues. pt was able to sit on EOB mod to max A for steadiness. pt seems to have confusion and has difficulty following directions. reviewed weight bearing restriction and PT demonstrated sit to stand and transfer techniques using FWW while maintain weight bearing precaution. pt completed sit to stand max A x 2 and max cues. pt tends to push down and be too much weight on RLE with foot flat despite of max Ax 2 given. pt resisting RLE positioning to maintain weight bearing precautions. pt has poor motor planning . completed sit <>stand x 4 reps with max A x 2 and max cues. completed step pivot using FWW max A x 2 and max cues. positioned on the chair. pt unable to keep weight bearing restriction and has difficulty following directions. Left pt with OT. Gait Assessment Comments Gait Comments unable at this time PT-Balance Assessment Sitting Balance and Reactions Static Sitting Balance Ability Good Dynamic Sitting Balance Ability Fair Standing Balance and Reactions Static Standing Balance Ability Poor Dynamic Standing Balance Ability Poor Device Used FWW M5 PT-IP Objective Assessments Start: 05/04/21 12:50 Freq: NEEDED Status: Active Protocol: Document 05/04/21 09:25 AB (Rec: 05/04/21 13:05 AB [email or web address]) Orientation Orientation/Cognition Level of Alertness Confusional State Orientation Name,Situation Safety Awareness Decreased Safety Awareness Memory Description Short Term Impaired,Mcfp Impaired Gross Range of Motion Lower Extremity ROM Assessment Right Impaired Impairments RLE increase guarding with mobility Strength Lower Extremity Strength Assessment Right Impaired Hip 3-/5 Knee 3+/5 Coordination Assessment Gross Coordination Gross Coordination Impaired Muscle Tone Muscle Tone WNL Yes M6 PT-IP Treatment Start: 05/04/21 12:50 Freq: NEEDED Status: Active Protocol: Document 05/04/21 09:25 AB (Rec: 05/04/21 13:05 AB [email or web address]) Physical Therapy Treatment Education Education Provided Precautions,Weight Bearing Status,Safety M7 PT-IP Assessment and Plan Start: 05/04/21 12:50 Freq: NEEDED Status: Active Protocol: Document 05/04/21 09:25 AB (Rec: 05/04/21 13:05 AB [email or web address]) PT Summary Assessment and Plan Potential Rehabilitation Potential Fair Status of Condition at Evaluation Evolving Summary Impairments Pain,ROM,Strength,Balance, Coordination,Sensation,Tone, Cognition,Bed Mobility, Transfers,Gait,Activity Tolerance Assessment Summary pt requring max A x 2 with all mobilities and has difficulty following directions. pt lives with spouse and spouse is still recovering from a recent CVA. pt will require SNF rehab to improve strength and mobility independence. Goals Bed Mobility Goal Minimal Assistance Transfer Goal Minimal Assistance,Front Wheeled Walker Gait Goal Minimal Assistance,Front Wheel Walker Gait Distance 30 Other Goals improve bed mobility to SBA, transfers and ambulation 50 ft using FWW CGA Days to Meet Goals 10 Frequency of Treatment Frequency Of Treatment Twice a Day Treatment Plan Physical Therapy Treatment Plan Bed Mobility Training,Transfer Training,Gait Training, Therapeutic Exercise,Balance Retraining,Post Op Education, Discharge Planning,Hot or Cold Pack,Neuromuscular Re-ed, Coordination Retraining,Manual Therapy Precautions Other Precautions R trochanteric precaution; RLE TTWB Recommendations To Nursing Amount of Assist Needed Mechanical Lift Discharge Recommendations PT Discharge Recommendations SNF Rehab Transportation Needs at Discharge Wheelchair/Cabulance
--- NOTE | 2021-05-04 10:17 | OT.IP.EVAL ---
Current Diagnoses Pathological fracture, right femur, initial encounter for fracture (05/03/21) Past Medical History (Last Reviewed 05/04/21 @ 11:14 by Doni Maharaj MD) BPH (benign prostatic hyperplasia) Elevated cholesterol Hypertension Left inguinal hernia Local reaction to bee sting Memory deficit Surgical History (Last Reviewed 05/04/21 @ 11:14 by Doni Maharaj MD) H/O cataract removal with insertion of prosthetic lens History of right inguinal hernia repair History of right inguinal hernia repair Occupational Therapy Inpatient Evaluation/Re-Eval M1 PT/OT-IP Prior Functional Status Start: 05/04/21 12:09 Freq: NEEDED Status: Active Protocol: Document 05/04/21 12:09 CGR (Rec: 05/04/21 12:32 CGR [id number]) Medical Review Prior Functional Status Medical History Reviewed Yes Communication Pt is an effective verbal communicator but is [place] without hearing aide. Mobility and Gait Pt was IND in all functional mobility prior to admit. Activities of Daily Living and IADL's Pt was IND in all ADLs but had assist with station engineer main line 3 days a week, 4 hours a day. Social History Household Members spouse Living Arrangements House Number of Floors (Floors) One Floor Number of Stairs To Enter/Railing? No steps to enter Home Environment Standard Height Toilet,Walk in Shower,Built-In Shower Seat Home Equipment Front Wheel Walker,Manual Wheelchair,Grab Bars Near Toilet,Grab Bars In Shower Employment Status Retired Additional Social History Comment Pt lives with his who recently had a stroke and is recovering and uses a 4ww for her mobility at time of eval. M2 OT-IP Current Condition Start: 05/04/21 12:09 Freq: Status: Active Protocol: Document 05/04/21 12:09 CGR (Rec: 05/04/21 12:32 CGR [id number]) Occupational Therapy Current Condition Current Condition Evaluation Date 05/04/21 Treatment Diagnosis Fall with mildly displacted fx R greater trochanter, nonsurgical Diagnosis Onset Date 05/03/21 Post Operative Precautions Other Precautions No hip abduction. Weight Bearing Status Weight Bearing Status Touch Down Weight Bearing M3 OT- IP Subjective and Pain Start: 05/04/21 12:09 Freq: Status: Active Protocol: Document 05/04/21 12:09 CGR (Rec: 05/04/21 12:32 R [id number]) OT- Subjective Occupational Therapy Visit Type Type Initial Evaluation Visit Start Time 09:35 Visit Stop Time 10:17 Total Visit Minutes 42 Notes co-treat with P.T. OT Pain Assessment Pain When Pain Assessed During Mobility Pain Present Pain Present Pain Reported Location Right Hip Scale Used did not rate Pain Behaviors Calling Out,Facial Grimacing, Guarding,Holding Area,Wincing Management Techniques Modification of Treatment,Re- positioning,Timing of Activity with Medications M4 OT- IP ADL's Start: 05/04/21 12:09 Freq: Status: Active Protocol: Document 05/04/21 12:09 CGR (Rec: 05/04/21 12:32 CGR [id number]) OT RNP-Brig-Kjefwza Comments OT Self-Feeding Comments not meal time OT ADL-Grooming General Evaluation Grooming Ability Standby Assistance Areas Needing Assistance Face Washing Comments OT Grooming Comments seated in chair OT ADL-Oral Care General Eval Oral Care Ability Standby Assistance Areas of Assistance Brushing Teeth Comments Oral Care Comments seated in chair OT ADL-Dressing General Eval Lower Body Dressing Ability Total Assistance Areas Needing Assistance Socks Comments OT Dressing Comments supine in bed OT ADL-Toileting Comments OT Toileting Comments not performed OT ADL-Bathing Comments OT Bathing Comments not performed M5 OT- IP IADL's Start: 05/04/21 12:09 Freq: Status: Active Protocol: Document 05/04/21 12:09 CGR (Rec: 05/04/21 12:32 CGR [id number]) OT-Instrumental Activities of Daily Living Deficits IADL Deficits Identified Deficits Home Safety Awareness Awareness of Need for Assistance at Home Decreased Awareness Ability to Problem Solve Emergency Unable to Problem Solve Situations Medication Management Medication Management Caregiver Provides Supervision Money Management Money Management Caregiver Provides Supervision Meal Preparation Meal Preparation Caregiver Provides Assist Marketing Rep Marketing Rep Caregiver Provides Assist Marketing Rep Comments Pt has help come in 3 times a week for 4 hours a day. 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 M6 OT- IP Functional Cognition Start: 05/04/21 12:09 Freq: Status: Active Protocol: Document 05/04/21 12:09 CGR (Rec: 05/04/21 12:32 CGR [id number]) Cognitive Factors Limiting Selfcare Function Cognitive Ability Level of Alertness Alert,Confusional State Patient Orientation Name,Month,Year,Situation Attention Span Ability Unable to Focus,Unable to Sustain Attention Safety Awareness Decreased Recall of Precautions,Decreased Ability to Apply Precautions, Underestimates Need for Assistance Cognitive Comments Cognitive Assessment Comments Pt's SLUMS score 24/30 on 2018 upon previous admit. Pt's states she feels like his cognition is at baseline at this time. Pt had difficulty following simple commands and was unable to follow visual, tactile, or verbal commands consistently with mobility. OT- Vision and Hearing OT- Hearing Assessment OT- Hearing Assessment Hearing Impaired OT- Vision Assessment Visual Acuity Glasses All The Time Visual Attentiveness WFL Occular Pursuits WFL Visual Convergence WFL Vision Assessment Comments Pt wears bifocals and has had cateract sx. M7 OT- IP Mobility and Balance Start: 05/04/21 12:09 Freq: Status: Active Protocol: Document 05/04/21 12:09 CGR (Rec: 05/04/21 12:32 CGR [id number]) OT- Bed Mobility Assessment Supine to Sit Supine to Sit Assist Maximum Assistance,2 Person Assistance Scooting Scooting to Edge of Bed Maximum Assistance,2 Person Assistance OT-Transfer Assessment Sit to and From Stand Sit to and from Stand Maximum Assistance,2 Person Assistance Transfers Transfer Ability Maximum Assistance,2 Person Assistance Technique Transfer Destination Bed,Chair Transfer Technique Stand Pivot Devices Transfer Assistive Devices Gait Belt,Front Wheeled Walker Comments Mobility Comments Pt performed sit to stand x3 with max x2 and poor ability to follow simple commands for TTWB with transfer. OT- Gait Assessment Comments Gait Ability Comments did not occur OT- Balance Assessment Sitting Balance and Reactions Static Sitting Balance Ability Fair Dynamic Sitting Balance Ability Fair M8 OT- IP Objective Assessments Start: 05/04/21 12:09 Freq: Status: Active Protocol: Document 05/04/21 12:09 CGR (Rec: 05/04/21 12:32 CGR [id number]) OT Gross Range of Motion Upper Extremity Range of Motion Assessment Within Functional Limits OT Strength Upper Extremity Strength Assessment Within Functional Limits Comments Strength Comments 4/5 OT- Coordination Assessment Upper Extremity Finger to Nose Test Within Functional Limits Finger Tapping Test Within Functional Limits OT-Muscle Tone Assessment Muscle Tone WNL Yes OT Sensation Assessment Edema Edema Absent M9 OT- IP Assessment and Plan Start: 05/04/21 12:09 Freq: Status: Active Protocol: Document 05/04/21 12:09 CGR (Rec: 05/04/21 12:32 CGR [id number]) OT Summary Assessment and Plan Potential Rehabilitation Potential Good Analytic Complexity at Evaluation High Summary OT Impairments Pain,Strength,Balance, Functional Cognition, Functional Mobility,Grooming, Dressing,Toileting,Bathing, Toilet Transfers,Shower Transfers,Activity Tolerance Progress Towards Goals Slow Progress due to Medical Issues,Slow Progress due to Cognition Assessment Summary Pt presents as a high complexity evaluation s/p fall with mildly displaced fx of the R greater trochanter. Conservative management at this time with TTWB. Pt was unable to follow simple commands consistently and unable to maintain TTWB or NWB with transfers. Pt appears easily confused. Pt will benefit from further OT services with updated cog assessment. Pt will benefit from SNF upon discharge as pt' s is recovering from a CVA and pt is currently a 2 person max assist for a stand pivot transfer at this time. Goals Self-Feeding Goal Independent Grooming Goal Independent Dressing Goal Independent Toileting Goal Independent Bathing Goal Independent Toilet Transfer Goal Independent Shower Transfer Goal Independent Days to Meet Goals 30 Frequency of Treatment Frequency Of Treatment Once a Day Treatment Plan OT Treatment Plan ADL Training,Functional Cognition Training,Functional Mobility,Therapeutic Exercises ,Patient/Family Education, Discharge Planning Other Treatment Recommendations and Next educated on WB to the RLE and Treatment Focus simple ADLs. Discharge Recommendations OT Discharge Recommendations SNF Rehab Transportation Needs at Discharge Wheelchair/Cabulance
--- NOTE | 2021-05-04 11:10 | PM.CN ---
History of Present Illness Consult details Date Patient Seen: 05/04/21 Time Patient Seen: 11:11 Chief complaint: Stroke symptoms Reason for consult: Right greater trochanteric fracture. Narrative: Jaron Zayas is an 83-year-old male with a past medical history significant for CAD, prior syncope, hypertension, hyperlipidemia, and short-term memory impairment who initially presented to the emergency room as a code stroke with right leg weakness. He has some memory impairment so history is not exactly clear but it sounds like he was standing when he fell in a parking lot striking his right hip on a cement lumbar he had immediate onset of pain was unable to weightbear on the side. He could not move his right leg due to the sudden onset of pain with any movement. He denied any numbness or tingling. He denies any previous history of hip pain. Denies any use of ambulatory aids. Of note patient's is recovering from a stroke and use a front wheel walker. Meds Home Medications and Allergies Home Medications Medication Instructions Recorded Confirmed Type losartan 50 mg PO BID 12/28/18 05/03/21 History amlodipine [Norvasc] 5 mg PO DAILY 05/03/21 05/03/21 History rosuvastatin 10 mg PO BEDTIME 05/03/21 05/03/21 History Allergies Allergy/AdvReac Type Severity Reaction Status Date / Time bee venom protein (honey bee) Allergy Verified 05/03/21 16:31 Review of Systems Review of Systems ROS: Yes unobtainable due to mental status Exam Vital Signs (past 8 hours): - 05/04/21 05:30 05/04/21 07:30 05/04/21 08:10 Temperature 99.3 F 98.8 F Pulse Rate 75 69 Respiratory Rate 16 16 Blood Pressure 147/84 H 143/71 H Pulse Oximetry 92 93 93 Oxygen Delivery Method Room Air Oxygen Flow Rate 0 Narrative Exam Narrative: NV intact in the RLE. No skin breaks. No erythema. Tenderness to palpation over the hip. Objective Imaging hip films: My impression: Right greater troch fracture. Does not appear to involve the neck or intertrochanteric region. Radiologist's impression: Imaging xr hip: Radiologist's impression: PROCEDURE: XR HIP W PEL IF DONE RT 2V INDICATIONS: right leg weakness TECHNIQUE: AP pelvis with lateral view(s) of the right hip(s). COMPARISON: None. FINDINGS: Bones: There is a mildly displaced fracture of the greater trochanter of the right proximal femur. Pelvic ring appears intact. No suspicious bony lesions. Mild joint space narrowing and periarticular osteophyte formation at the bilateral hip joints. CT scan - pelvis: My impression: Minimally displaced isolate right greater trochanteric fractue. Radiologist's impression: IMPRESSION: Minimally distracted right greater trochanteric femoral fracture. No femoral neck fracture. Incidental diverticulosis without diverticulitis, prostatic hypertrophy and right inguinal hernia. Labs Result Diagrams: 05/04/21 05:39 05/04/21 05:39 Labs: Laboratory Results - last 24 hr 05/03/21 05/03/21 05/03/21 16:25 16:25 18:15 WBC 6.4 RBC 4.82 Hgb 14.7 Hct 43.6 MCV 90.3 MCH 30.4 MCHC 33.7 RDW 13.1 Plt Count 231 Neut % (Auto) 54.4 Lymph % (Auto) 34.1 [place] % (Auto) 9.4 Eos % (Auto) 1.5 L Baso % (Auto) 0.6 Neut # (Auto) 3500 Lymph # (Auto) 2200 [place] # (Auto) 600 Eos # (Auto) 100 Baso # (Auto) 0 Sodium 136 L Potassium 3.8 Chloride 104 Carbon Dioxide 26 BUN 29 H Creatinine 0.96 Estimated GFR > 60.0 BUN/Creatinine Ratio 30.2 H Glucose 92 Calcium 8.6 Magnesium Total Bilirubin 0.4 AST 33 ALT 24 Alkaline Phosphatase 72 Total Creatine Kinase 81 CK-MB (CK-2) TNP CK-MB (CK-2) Rel Index TNP Troponin I < 0.012 Total Protein 6.9 Albumin 3.9 Globulin 3.0 Albumin/Globulin Ratio 1.3 U Opiates 300ng/mL cut Negative Ur Oxycodone Screen Negative Urine Methadone Screen Negative Ur Barbiturates Screen Negative U Tricyclic Antidepress Negative Ur Phencyclidine Scrn Negative Ur Amphetamines Screen Negative U Methamphetamines Scrn Negative Ur MDMA Scrn (Ecstasy) Negative U Benzodiazepines Scrn Negative Urine Cocaine Screen Negative U Marijuana (THC) Screen Negative SARS-CoV-2 (PCR) 05/03/21 05/04/21 05/04/21 18:24 05:39 05:39 WBC 8.2 RBC 4.59 Hgb 14.1 Hct 41.2 MCV 89.8 MCH 30.7 MCHC 34.2 RDW 13.5 Plt Count 203 Neut % (Auto) 73.4 Lymph % (Auto) 14.9 L [place] % (Auto) 9.9 Eos % (Auto) 1.1 L Baso % (Auto) 0.7 Neut # (Auto) 6000 Lymph # (Auto) 1200 [place] # (Auto) 800 Eos # (Auto) 100 Baso # (Auto) 100 Sodium 135 L Potassium 3.8 Chloride 105 Carbon Dioxide 24 BUN 28 H Creatinine 0.88 Estimated GFR > 60.0 BUN/Creatinine Ratio 31.8 H Glucose 111 H Calcium 8.5 Magnesium 1.8 Total Bilirubin AST ALT Alkaline Phosphatase Total Creatine Kinase CK-MB (CK-2) CK-MB (CK-2) Rel Index Troponin I Total Protein Albumin Globulin Albumin/Globulin Ratio U Opiates 300ng/mL cut Ur Oxycodone Screen Urine Methadone Screen Ur Barbiturates Screen U Tricyclic Antidepress Ur Phencyclidine Scrn Ur Amphetamines Screen U Methamphetamines Scrn Ur MDMA Scrn (Ecstasy) U Benzodiazepines Scrn Urine Cocaine Screen U Marijuana (THC) Screen SARS-CoV-2 (PCR) Negative Assessment & Plan Assessment & Plan narrative: Patient is a 85-year-old male with memory impairment. He had a ground level fall yesterday unclear if it was a syncopal episode or foot was a mechanical fall. He landed onto his right hip sustained an isolated right greater trochanteric femur fracture. I had a long discussion with the patient and his regarding his fracture pattern as well as possible treatment options. At this point the fracture pattern is minimally displaced there is no neck or intertrochanteric region involvement in the fracture pattern. Plan as of now is to treat this non operatively. -toe-touch weight-bearing right lower extremity -trochanteric precautions, right-side -Follow-up with Dr. Maharaj in 2 weeks for repeat imaging. Time Spent With Patient Time with patient: 15-24 minutes
--- NOTE | 2021-05-04 11:36 | CM.IDA ---
Addendum entered by SUSANA Hogan 05/04/21 13:55: Dtr Saskia's cell [phone] Original Note: Initial DCP Assessment Note Pt is an 85 yo male, resident of [place], arrives to the ED via EMS w/stroke like symptoms and found to have Right greater trochanteric fracture, likely pathologic, inoperable. PMH includes CAD based on CTA, HTN, prior multiple bilateral CVA, HTN, HLD, probable MARSHALL, mild cognitive impairment PCP: Anna Dumas Payer: [facility] According to discussion w/RN Latasha, PT/OT and Dr Tyson; patient is currently toe touch weight bearing d/t this fracture and is not able to follow commands from therapy team at this time. Spouse Gisela was brought in via w/c and is recovering from a stroke. Patient is not considered safe to return home at this time. Placed call to spouse who was still in patient's room, she directed this DESCRIPTIVE CATALOG LIBRARIAN to her dtr Saskia (currently staying at patient's home, lives in [place]). According to the conversation w/dtr Saskia: Patient and spouse have three adult children. Patient has mild cognitive impairment at base (according to dtr) and still drives and does the shopping for he and spouse. Spouse Gisela had a stroke approx one year ago, recovered at a SNF for 10 months and then lived w/their oldest son (Nick) for 3 months before returning home w/patient in January 2021. Patient /spouse have in home cgs assist 3 times a week for 4 hours daily from [facility] [employer]. Patient/spouse are visited by their adult children at least 1-2x weekly, dtr in [place], son in [place] and youngest son in [place]. None available to stay or live w/their parents. Discussed DCP options; discussed observation vs inpatient status and the effect on [facility]'s ability to pay for SNF. It is likely that patient will be DC tomorrow if he remains observation. Dtr Saskia feels SNF is the best option and requests referral be discussed w/[facility] in [place]. Dtr to discuss out of pocket cost w/her mom and her siblings (quoted as approx $12,000 deposit for [facility]) Following closely for coordination of safe dispo Sonia Ashley MSW Discharge Planning/Care Management CM Discharge Assessment Start: 05/04/21 11:33 Freq: Status: Active Protocol: Document 05/04/21 11:33 SHERRY (Rec: 05/04/21 11:36 SHERRY [id number]) Discharge Planning Assessment Assigned Drapery Cutter SUSANA Garnett DPOA/Assigned Designee Name Saskia Zayas dtr/DPJAMES ( requested DPOA ppk) Contact Information cell [phone] Advance Directives? Yes Advance Directives on File No History Provided By Family Member,Medical Record Prior Living Arrangements House Household Members spouse Type of transporation used prior to Drives own vehicle admit Independent with ADL's No Is patient alert and oriented? No Needs Assistance With Bathing,Meal Prep,Managing Medications,Home Chores / Shopping Patient/Family Preference Prison Facility Barriers to Discharge Yes Comment Lives w/spouse who is recovering from stroke Discharge Plan Prison Facility Transportation Arrangement Likely w/c Referrals Initiated Prison Additional Comment Discussed observation and need for private payment at SNF w/ venancio Kruger Review Status In Process
[2021-05-04] MEDS: LOSARTAN 50 MG TABLET PO ×2 (12:06→20:58)
[2021-05-04] MEDS: AMLODIPINE 5 MG TABLET PO (12:06)
--- NOTE | 2021-05-04 13:21 | PM.PN.1 ---
Subjective Subjective Date Patient Seen: 05/04/21 Time Patient Seen: 13:22 Interval history: Jaron Zayas is an 83-year-old male with a past medical history significant for CAD based on CTA, HTN, prior multiple bilateral CVA, HTN, HLD, probable MARSHALL, mild cognitive impairment who is admitted after a possible syncopal episode vs acute onset of R leg weakness ultimately suffering a right femur fracture, admitted to medicine for further management. His pain was improved with movement today on oxycodone. Did not do well with therapies, however, and is unsafe to discharge home. Exam Vital Signs (past 8 hours): - 05/04/21 05:30 05/04/21 07:30 05/04/21 08:10 Temperature 99.3 F 98.8 F Pulse Rate 75 69 Respiratory Rate 16 16 Blood Pressure 147/84 H 143/71 H Pulse Oximetry 92 93 93 05/04/21 12:00 05/04/21 12:06 Temperature Pulse Rate 76 Respiratory Rate 16 Blood Pressure 148/74 H 148/74 H Pulse Oximetry Oxygen Delivery Method Room Air Oxygen Flow Rate 0 Narrative Exam Narrative: GENERAL APPEARANCE: Well developed, well nourished, in no acute distress. SKIN: Inspection of the skin reveals no rashes, ulcerations or petechiae. HEENT: Normocephalic atraumatic, extraocular muscles are intact, oropharynx is clear and mucous membranes are moist, neck is supple without adenopathy NECK: Supple and symmetric. There was no thyroid enlargement, and no tenderness, or masses were felt. CHEST: Normal AP diameter and normal contour without any kyphoscoliosis. LUNGS: Auscultation of the lungs revealed no wheezes, rhonchi, or rales. CARDIOVASCULAR: There was a regular rate and rhythm without any murmurs, gallops, rubs. Peripheral pulses were 2+ and symmetric. ABDOMEN: Soft and nontender with normal bowel sounds. No ascites was noted. MUSCULOSKELETAL: There were no joint effusions noted. Muscle strength and tone grossly normal. Able to wiggle his toes bilaterally. Tenderness over R hip. EXTREMITIES: No cyanosis, clubbing or edema. NEUROLOGIC: Alert and oriented x 3. Normal affect. no focal deficits, RLE evaluation limited by fracture. Objective Labs Result Diagrams: 05/04/21 05:39 05/04/21 05:39 Labs: Laboratory Results - last 24 hr 05/03/21 05/03/21 05/03/21 16:25 16:25 18:15 WBC 6.4 RBC 4.82 Hgb 14.7 Hct 43.6 MCV 90.3 MCH 30.4 MCHC 33.7 RDW 13.1 Plt Count 231 Neut % (Auto) 54.4 Lymph % (Auto) 34.1 Dawson % (Auto) 9.4 Eos % (Auto) 1.5 L Baso % (Auto) 0.6 Neut # (Auto) 3500 Lymph # (Auto) 2200 Dawson # (Auto) 600 Eos # (Auto) 100 Baso # (Auto) 0 Sodium 136 L Potassium 3.8 Chloride 104 Carbon Dioxide 26 BUN 29 H Creatinine 0.96 Estimated GFR > 60.0 BUN/Creatinine Ratio 30.2 H Glucose 92 Calcium 8.6 Magnesium Total Bilirubin 0.4 AST 33 ALT 24 Alkaline Phosphatase 72 Total Creatine Kinase 81 CK-MB (CK-2) TNP CK-MB (CK-2) Rel Index TNP Troponin I < 0.012 Total Protein 6.9 Albumin 3.9 Globulin 3.0 Albumin/Globulin Ratio 1.3 U Opiates 300ng/mL cut Negative Ur Oxycodone Screen Negative Urine Methadone Screen Negative Ur Barbiturates Screen Negative U Tricyclic Antidepress Negative Ur Phencyclidine Scrn Negative Ur Amphetamines Screen Negative U Methamphetamines Scrn Negative Ur MDMA Scrn (Ecstasy) Negative U Benzodiazepines Scrn Negative Urine Cocaine Screen Negative U Marijuana (THC) Screen Negative SARS-CoV-2 (PCR) 05/03/21 05/04/21 05/04/21 18:24 05:39 05:39 WBC 8.2 RBC 4.59 Hgb 14.1 Hct 41.2 MCV 89.8 MCH 30.7 MCHC 34.2 RDW 13.5 Plt Count 203 Neut % (Auto) 73.4 Lymph % (Auto) 14.9 L Dawson % (Auto) 9.9 Eos % (Auto) 1.1 L Baso % (Auto) 0.7 Neut # (Auto) 6000 Lymph # (Auto) 1200 Dawson # (Auto) 800 Eos # (Auto) 100 Baso # (Auto) 100 Sodium 135 L Potassium 3.8 Chloride 105 Carbon Dioxide 24 BUN 28 H Creatinine 0.88 Estimated GFR > 60.0 BUN/Creatinine Ratio 31.8 H Glucose 111 H Calcium 8.5 Magnesium 1.8 Total Bilirubin AST ALT Alkaline Phosphatase Total Creatine Kinase CK-MB (CK-2) CK-MB (CK-2) Rel Index Troponin I Total Protein Albumin Globulin Albumin/Globulin Ratio U Opiates 300ng/mL cut Ur Oxycodone Screen Urine Methadone Screen Ur Barbiturates Screen U Tricyclic Antidepress Ur Phencyclidine Scrn Ur Amphetamines Screen U Methamphetamines Scrn Ur MDMA Scrn (Ecstasy) U Benzodiazepines Scrn Urine Cocaine Screen U Marijuana (THC) Screen SARS-CoV-2 (PCR) Negative [facility] Medical History BPH (benign prostatic hyperplasia) Elevated cholesterol Hypertension Left inguinal hernia 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 Brother No problems noted. Social History household members: spouse Smoking Status: Never smoker alcohol intake: current Assessment & Plan Assessment & Plan narrative: Jaron Zayas is an 83-year-old male with a past medical history significant for CAD based on CTA, HTN, prior multiple bilateral CVA, HTN, HLD, probable MARSHALL, mild cognitive impairment who is admitted after a possible syncopal episode vs acute onset of R leg weakness ultimately suffering a right femur fracture, admitted to medicine for further management. 1. Right greater trochanteric fracture, likely pathologic, present on admission - non operative management per Dr. Maharaj. Recommended hip precautions and toe-touch weight-bearing right lower extremity. -likely pathologic secondary to osteoporosis given possible mechanism of fracture. -continue pain control with oxycodone, Tylenol. Will continue to adjust as necessary. 2. 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 - negative troponin, history not consistent with CVA. Medications not likely to change as a result of MRI as he is already on secondary prevention. - prior stress testing was low risk, no evidence of arrhythmia on outpatient Holter monitor. Will continue telemetry. -continue home medications 3. Hypertension, chronic, present on admission. active -likely elevated secondary to pain, continue home medications 4. Hyperlipidemia, chronic, present on admission. 5. BPH with LUTS, chronic, present on admission. Active. - start flomax, reports 4x nightly urination. CT scan shows enlarged prostate. 7. 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 Stable. - OT consultation as noted above. Code status: DNR/DNI, surrogate decision maker is the patient's spouse. Dispo: Admitted under observation status currently for non-operative R hip fracture. However patient not safe to go home per therapy evaluations. Will continue PT/OT and pain control at this time. DVT: Lovenox daily COVID-19 COVID-19 status: Negative Quality VTE Deep Vein Thrombosis/Pulmonary Embolism Present on Admission: No
--- NOTE | 2021-05-04 13:55 | PT.IPTN ---
Current Diagnoses Pathological fracture, right femur, initial encounter for fracture (05/03/21) Physical Therapy Treatment Note M2 PT-IP Current Condition Start: 05/04/21 12:50 Freq: NEEDED Status: Active Protocol: Document 05/04/21 09:25 AB (Rec: 05/04/21 13:05 AB [email or web address]) Physical Therapy Current Condition Current Condition Evaluation Date 05/04/21 Treatment Diagnosis R trochanteric fx; difficulty in walking Onset Date 05/03/21 Precautions Other Precautions trochanteric precaution RLE Weight Bearing Status Weight Bearing Status Touch Down Weight Bearing Allowed Weight Bearing Amount (enter % RLE: TTWB or #) (%) M3 PT-IP Subjective Start: 05/04/21 12:50 Freq: NEEDED Status: Active Protocol: Document 05/04/21 13:55 AB (Rec: 05/04/21 15:15 AB [email or web address]) Subjective Physical Therapy Visit Type Type Treatment Note Visit Start Time 13:55 Visit Stop Time 14:25 Total Visit Minutes 30 Number of STRENGTH AND CONDITIONING COACH Visits 0 Physical Therapy Visit Comments Patient Comments pt agreeable to do PT Therapy Pain Assessment Pain When Pain Assessed During Mobility Location Right Hip Scale Used pain scale not stated Pain Behaviors Facial Grimacing,Holding Area Pain Management Techniques Distraction,Modification of Treatment,Re-positioning, Timing of Activity with Medications M4 PT-IP Mobility and Gait Start: 05/04/21 12:50 Freq: NEEDED Status: Active Protocol: Document 05/04/21 13:55 AB (Rec: 05/04/21 15:15 AB [email or web address]) PT-Bed Mobility Assessment Supine to Sit Supine to Sit Maximum Assistance,Head of Bed Elevated Sit to Supine Sit to Supine Maximum Assistance,1 Person Assistance,2 Person Assistance Scooting Scooting to Edge of Bed Maximum Assistance PT-Transfer Assessment Comments Mobility Comments pt supine in bed and agreed to do PT. completed supine to sit max A and max cues. reviewed precautions and weight bearing restriction. pt continues to have difficulty following directions. attempted sit to stand x 4 reps but pt unable to stand fully upright despite max A provided. pt also unable to follow weight bearing restriction and PT has to assist RLE to maintain NWB at this time (opted for NWB as pt is unable to follow TTWB ). pt with confusion and decrease safety awareness. pt requested to go back to bed. completed sit to supine max A x 1-2 and max cues. c/o increase RLE pain. positioned pt on the bed. agreed to do LE exercises and completed supine heel slides, ankle pumps and quads sets with 5 sec hold. call light and table placed within reach. bed alarm on. Gait Assessment Comments Gait Comments unable at this time M5 PT-IP Objective Assessments Start: 05/04/21 12:50 Freq: NEEDED Status: Active Protocol: Document 05/04/21 09:25 AB (Rec: 05/04/21 13:05 AB [email or web address]) Orientation Orientation/Cognition Level of Alertness Confusional State Orientation Name,Situation Safety Awareness Decreased Safety Awareness Memory Description Short Term Impaired,Custodial Impaired Gross Range of Motion Lower Extremity ROM Assessment Right Impaired Impairments RLE increase guarding with mobility Strength Lower Extremity Strength Assessment Right Impaired Hip 3-/5 Knee 3+/5 Coordination Assessment Gross Coordination Gross Coordination Impaired Muscle Tone Muscle Tone WNL Yes M6 PT-IP Treatment Start: 05/04/21 12:50 Freq: NEEDED Status: Active Protocol: Document 05/04/21 13:55 AB (Rec: 05/04/21 15:15 AB [email or web address]) Physical Therapy Treatment Exercises Exercises Ankle Pumps,Quad Sets,Heel Slides Education Education Provided Weight Bearing Status,Safety M7 PT-IP Assessment and Plan Start: 05/04/21 12:50 Freq: NEEDED Status: Active Protocol: Document 05/04/21 13:55 AB (Rec: 05/04/21 15:15 AB [email or web address]) PT Summary Assessment and Plan Potential Rehabilitation Potential Fair Summary Impairments Pain,ROM,Strength,Balance, Coordination,Sensation,Tone, Cognition,Bed Mobility, Transfers,Gait,Activity Tolerance Progress Towards Goals Slow Progress due to Pain,Slow Progress due to Medical Issues,Slow Progress due to Activity Tolerance,Slow Progress - Other Assessment Summary pt requiring max A x 2 with mobility and has difficulty following directions. pt is impulsive and has poor safety awareness. pt will require SNF rehab to improve strength and mobility. Goals Bed Mobility Goal Minimal Assistance Transfer Goal Minimal Assistance,Front Wheeled Walker Gait Goal Minimal Assistance,Front Wheel Walker Gait Distance 30 Other Goals improve bed mobility to SBA, transfers and ambulation 50 ft using FWW CGA Days to Meet Goals 10 Frequency of Treatment Frequency Of Treatment Twice a Day Treatment Plan Physical Therapy Treatment Plan Bed Mobility Training,Transfer Training,Gait Training, Therapeutic Exercise,Balance Retraining,Post Op Education, Discharge Planning,Hot or Cold Pack,Neuromuscular Re-ed, Coordination Retraining,Manual Therapy Precautions Other Precautions R trochanteric precaution; RLE TTWB Recommendations To Nursing Amount of Assist Needed Mechanical Lift Discharge Recommendations PT Discharge Recommendations SNF Rehab Transportation Needs at Discharge Wheelchair/Cabulance
[2021-05-04] MEDS: ACETAMINOPHEN 325 MG TABLET 650 MG PO (15:49)
[2021-05-04] MEDS: ATORVASTATIN 20 MG TABLET PO (20:59)
[2021-05-05] VITALS (7 sets, daily range): BP systolic 141–149; BP diastolic 72–86; PULSE 72–73; RESP 16; TEMP 36.9–37.1; O2SAT 91–94
[2021-05-05] MEDS: OXYCODONE IR 5 MG TABLET PO (02:39)
[2021-05-05] MEDS: ENOXAPARIN 40 MG/0.4 ML SYRINGE SUBCUT (09:10)
[2021-05-05] MEDS: AMLODIPINE 5 MG TABLET PO (09:10)
[2021-05-05] MEDS: LOSARTAN 50 MG TABLET PO (09:10)
[2021-05-05] MEDS: TAMSULOSIN 0.4 MG CAPSULE PO (09:11)
--- NOTE | 2021-05-05 09:19 | P.PN_ITS ---
Subjective Subjective Date Patient Seen: 05/05/21 Time Patient Seen: 09:19 Interval history: Patient is a 85-year-old male who ground fall resulting in a isolated greater trochanteric fracture. Being treated non operatively at this time point. Patient has very short-term memory. Memory problems. Has to be redirected several times a day. Exam Vital Signs (past 8 hours): - 05/05/21 03:15 05/05/21 05:00 05/05/21 07:43 Temperature 98.7 F 98.4 F Pulse Rate 73 72 Respiratory Rate 16 16 Blood Pressure 149/86 H 141/72 H Pulse Oximetry 91 92 93 05/05/21 07:45 05/05/21 08:05 05/05/21 09:10 Temperature Pulse Rate Respiratory Rate Blood Pressure 141/72 H Pulse Oximetry 94 94 Oxygen Delivery Method Room Air Oxygen Flow Rate 0 Narrative Exam Narrative: Neurovascularly intact. No ecchymosis or skin breaks over the right hip. Objective Labs Result Diagrams: 05/04/21 05:39 05/04/21 05:39 [facility] Medical History BPH (benign prostatic hyperplasia) Elevated cholesterol Hypertension Left inguinal hernia 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 Brother No problems noted. Social History household members: spouse Smoking Status: Never smoker alcohol intake: current Assessment & Plan Assessment & Plan narrative: Patient is a 85-year-old male who sustained a isolated greater trochanteric fracture of the right femur after a ground level fall. This will be attempted be treated non operatively. He can be toe-touch weight-bearing right lower extremity as well as trochanteric precautions. We will follow him closely with repeat imaging in 2 weeks to see this fragments further displaced. Dispo is likely to retirement facility today. Quality VTE Deep Vein Thrombosis/Pulmonary Embolism Present on Admission: No
[2021-05-05] MEDS: LIDOCAINE PATCH 1 EACH ADH..PATCH TOP (09:26)
--- NOTE | 2021-05-05 09:45 | PM.DS.1 ---
History of Present Illness History of Present Illness Date Patient Seen: 05/05/21 Time Patient Seen: 09:46 Chief complaint: Stroke symptoms Narrative: Jaron Zayas is an 83-year-old male with a past medical history significant for CAD based on recent CTA, prior syncope, but low risk outpatient stress testing and holter monitor, hypertension, hyperlipidemia in a medically treated, short-term memory impairment, probable BPH, and probable MARSHALL not on CPAP who initially presented to the emergency room as a code stroke with right leg weakness. His story to me is that he stood up and suddenly his right leg gave out and he fell down, but does not remember exactly what side, but he told the ER his right. He could not move his right leg due to the sudden onset of pain with any movement. He denied any numbness or tingling he denied any slurred speech. He denied any palpitations, shortness of breath. He has had no recent dyspnea on exertion, shortness of breath, lower extremity edema, chest pain, chest pressure, fever, chills, abdominal pain, nausea, vomiting. He does urinate about 4 times nightly. In the emergency room, the patient was mildly hypertensive, but the remainder of his vital signs are unremarkable. Laboratory evaluation showed an unremarkable CBC, no significant abnormalities in his chemistry panel, and a negative troponin. Urine drug screen was negative. COVID-19 testing is currently pending. Imaging including chest x-ray, hip x-ray, hip CT scan, and CT angiogram of his head and neck showed no acute CVA but evidence of old prior strokes and a mildly displaced fracture of his right greater trochanter. Per ER provider orthopedic surgery states non-operative management. Discharge Providers Provider Date of admission: 05/03/21 18:05 Discharge Date: 05/05/21 Primary care physician: Anna Dumas MD Consults: 05/03/21 19:21 Consult to Occupational Therapy Evaluate & Treat Comment: Physician Instructions: Evaluate and treat Consult to Physical Therapy Evaluate & Treat Comment: Physician Instructions: Evaluate and Treat 05/03/21 19:38 Consult to Occupational Therapy Evaluate & Treat Comment: Physician Instructions: Evaluate and treat Consult to Physical Therapy Evaluate & Treat Comment: Physician Instructions: Evaluate and Treat 05/03/21 19:40 Consult to Orthopedic Surgery Routine Comment: Consulting Provider: Doni Maharaj Reason for consultation: R greater trochanteric hip fracture Discharge provider: Raghu Tyson DO Summary Hospital Course Discharge Diagnosis: Please see hospital course by problem list noted below. Hospital Course: Jaron Zayas is an 83-year-old male with a past medical history significant for CAD based on CTA, HTN, prior multiple bilateral CVA, HTN, HLD, probable MARSHALL, mild cognitive impairment who is admitted after a possible syncopal episode vs acute onset of R leg weakness ultimately suffering a right femur fracture, admitted to medicine for further management. Thought less likely to be syncope and more related to pain upon further evaluation. 1. Right greater trochanteric fracture, likely pathologic, present on admission - non operative management per Dr. Maharaj. Recommended hip precautions and toe-touch weight-bearing right lower extremity. -pathologic secondary to osteoporosis given possible mechanism of fracture. -continue pain control with oxycodone as needed, Tylenol scheduled, and added pain patch today. Continue to adjust as necessary. - continue PT at SNF - 2 week follow up with orthopedics in clinic. 2. 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 - negative troponin, history of fall not consistent with CVA. Medications not likely to change as a result of MRI as he is already on secondary prevention. - prior stress testing was low risk, no evidence of arrhythmia on outpatient Holter monitor. No arrythmias noted on telemetry while admitted. -continued home medications 3. Hypertension, chronic, present on admission. active -likely elevated secondary to pain, continued home medications 4. Hyperlipidemia, chronic, present on admission. - continued home medications. 5. BPH with LUTS, chronic, present on admission. Active. - started flomax, reports 4x nightly urination. CT scan shows enlarged prostate. 7. 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 with probable hospital induced delirium. - OT consultation as noted above. Continue at SNF. - patient noted to have overnight episodes of confusion but did not require medications and was redirectable. Consider low dose seroquel if confusion continues. Code status: DNR/DNI, surrogate decision maker is the patient's spouse. Dispo: Admitted under observation status currently for non-operative R hip fracture. Will discharge to SNF today under private pay for continued rehab. Time Spent with Patient Time spent: Greater than 30 minutes Exam Vital Signs (past 8 hours): - 05/05/21 03:15 05/05/21 05:00 05/05/21 07:43 Temperature 98.7 F 98.4 F Pulse Rate 73 72 Respiratory Rate 16 16 Blood Pressure 149/86 H 141/72 H Pulse Oximetry 91 92 93 05/05/21 07:45 05/05/21 08:05 05/05/21 09:10 Temperature Pulse Rate Respiratory Rate Blood Pressure 141/72 H Pulse Oximetry 94 94 Oxygen Delivery Method Room Air Oxygen Flow Rate 0 Narrative Exam Narrative: GENERAL APPEARANCE: Well developed, well nourished, in no acute distress. SKIN: Inspection of the skin reveals no rashes, ulcerations or petechiae. HEENT: Normocephalic atraumatic, extraocular muscles are intact, oropharynx is clear and mucous membranes are moist, neck is supple without adenopathy NECK: Supple and symmetric. There was no thyroid enlargement, and no tenderness, or masses were felt. CHEST: Normal AP diameter and normal contour without any kyphoscoliosis. LUNGS: Auscultation of the lungs revealed no wheezes, rhonchi, or rales. CARDIOVASCULAR: There was a regular rate and rhythm without any murmurs, gallops, rubs. Peripheral pulses were 2+ and symmetric. ABDOMEN: Soft and nontender with normal bowel sounds. No ascites was noted. MUSCULOSKELETAL: There were no joint effusions noted. Muscle strength and tone grossly normal. Able to wiggle his toes bilaterally. Tenderness over R hip. EXTREMITIES: No cyanosis, clubbing or edema. NEUROLOGIC: Alert and oriented x 2 today. Normal affect. no focal deficits, RLE evaluation limited by fracture. Objective Labs Result Diagrams: 05/04/21 05:39 05/04/21 05:39 [facility] Medical History BPH (benign prostatic hyperplasia) Elevated cholesterol Hypertension Left inguinal hernia 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 Brother No problems noted. Social History household members: spouse Smoking Status: Never smoker alcohol intake: current Discharge Plan Discharge Plan Patient Disposition: SNF Transfer to: [facility] Provider Discharge Comment: Jaron Zayas is an 83-year-old male with a past medical history significant for CAD based on CTA, HTN, prior multiple bilateral CVA, HTN, HLD, probable MARSHALL, mild cognitive impairment who is admitted after a possible syncopal episode vs acute onset of R leg weakness ultimately suffering a right femur fracture, admitted to medicine for further management. Thought less likely to be syncope and more related to pain upon further evaluation. 1. Right greater trochanteric fracture, likely pathologic, present on admission - non operative management per Dr. Maharaj. Recommended hip precautions and toe-touch weight-bearing right lower extremity. -pathologic secondary to osteoporosis given possible mechanism of fracture. -continue pain control with oxycodone as needed, Tylenol scheduled, and added pain patch today. Continue to adjust as necessary. - continue PT at SNF - outpatient follow up with orthopedics in 2 weeks. 2. 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 - negative troponin, history of fall not consistent with CVA. Medications not likely to change as a result of MRI as he is already on secondary prevention. - prior stress testing was low risk, no evidence of arrhythmia on outpatient Holter monitor. No arrythmias noted on telemetry while admitted. -continued home medications 3. Hypertension, chronic, present on admission. active -likely elevated secondary to pain, continued home medications 4. Hyperlipidemia, chronic, present on admission. - continued home medications. 5. BPH with LUTS, chronic, present on admission. Active. - started flomax, reports [address]x [address]. CT scan shows enlarged prostate. 7. 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 with probable hospital induced delirium. - OT consultation as noted above. Continue at SNF. - patient noted to have overnight episodes of confusion but did not require medications and was redirectable. Consider low dose seroquel if confusion continues. Code status: DNR/DNI, surrogate decision maker is the patient's spouse. Dispo: Admitted under observation status currently for non-operative R hip fracture. Will discharge to SNF today under private pay for continued rehab. I certify the postop hospital chcf care is medically necessary on a continuing basis for any conditions for which he/ she received care during this hospitalization.: Yes The receiving facility has agreed to accept transfer and provide medical treatment.: Yes Discharge orders & Medications Prescriptions: New acetaminophen 325 mg Tablet 975 mg PO TID 30 Days Qty: 270 RF: 0 tamsulosin [Flomax] 0.4 mg Capsule 0.4 mg PO DAILY 30 Days Qty: 30 RF: 0 lidocaine 5 % Adhesive Patch,Medicated 1 ea topical DAILY 14 Days Qty: 14 RF: 0 oxycodone 5 mg Tablet 5 - 10 mg PO Q6HR PRN (Reason: Pain, Moderate (4-6)) 7 Days Qty: 30 RF: 0 Continued losartan 50 mg Tablet 50 mg PO BID RF: 0 amlodipine [Norvasc] 5 mg tablet 5 mg PO DAILY RF: 0 rosuvastatin 10 mg tablet 10 mg PO BEDTIME RF: 0 Follow up/Referrals: Anna Dumas MD [Primary Care Provider] - Doni Maharaj MD [Physician] - 2 Weeks (Follow up non-operative R greater trochanter Fracture) Discharge Health Status Multidrug resistant organism: No MDRO Precautions: [place] Diet/Activity/Treatments Diet: Diet as Tolerated and Low-sodium Liquid consistency: Normal/Thin Food texture: Regular Activity: As tolerated with weight bearing and precautions noted. Special Rehabilitation Services Reason for rehabilitation: Other Rehab type: Physical therapy and Occupational therapy Restrictions to mobility: toe touch weight bearing RLE, hip precautions. Discharge Data Primary Care Provider: Anna Dumas Attending Provider: Raghu Tyson VTE Deep Vein Thrombosis/Pulmonary Embolism Present on Admission: No
--- NOTE | 2021-05-05 10:17 | PT.IPTN ---
Current Diagnoses Pathological fracture, right femur, initial encounter for fracture (05/03/21) Physical Therapy Treatment Note M2 PT-IP Current Condition Start: 05/04/21 12:50 Freq: NEEDED Status: Active Protocol: Document 05/04/21 09:25 AB (Rec: 05/04/21 13:05 AB [id number]) Physical Therapy Current Condition Current Condition Evaluation Date 05/04/21 Treatment Diagnosis R trochanteric fx; difficulty in walking Onset Date 05/03/21 Precautions Other Precautions trochanteric precaution RLE Weight Bearing Status Weight Bearing Status Touch Down Weight Bearing Allowed Weight Bearing Amount (enter % RLE: TTWB or #) (%) M3 PT-IP Subjective Start: 05/04/21 12:50 Freq: NEEDED Status: Active Protocol: Document 05/05/21 10:17 AW (Rec: 05/05/21 10:35 AW [id number]) Subjective Physical Therapy Visit Type Type Treatment Note Visit Start Time 09:58 Visit Stop Time 10:17 Total Visit Minutes 19 Notes Pt's spouse and daughter were present throughout. Number of PROOFING MACHINE OPERATOR Visits 0 Physical Therapy Visit Comments Patient Comments pt agreeable to do PT Therapy Pain Assessment Pain When Pain Assessed During Mobility Pain Present Pain Present Pain Reported Location Right Hip Scale Used pain scale not stated Pain Behaviors Facial Grimacing,[place] Pain Management Techniques Distraction,Modification of Treatment,Re-positioning, Timing of Activity with Medications M4 PT-IP Mobility and Gait Start: 05/04/21 12:50 Freq: NEEDED Status: Active Protocol: Document 05/05/21 10:17 AW (Rec: 05/05/21 10:35 AW [id number]) PT-Bed Mobility Assessment Supine to Sit Supine to Sit Maximum Assistance,Head of Bed Elevated,Bedrails Scooting Scooting to Edge of Bed Maximum Assistance PT-Transfer Assessment Sit to and From Stand Sit to and from Stand Maximum Assistance,Use of Upper Extremities Equipment Transfer Assistive Device Gait Belt,Front Wheeled Walker Orthotic/Prosthetic Devices or Brace: No Transfers Transfer Destination Chair Transfer Technique Stand Pivot Transfer Ability Level of Assist Maximum Assistance,2 Person Assistance,Use of Upper Extremities Comments Mobility Comments Pt was reclined in bed as PT arrived. He required HOB up to 35 degrees, heavy use of bed rails, and max assist/cues for supine to sit. Pt winced with every movement. He was able to sit EOB SBA. PT reviewed WB and trochanteric precautions with pt in preparation for transfer. Pt recalled he should not put any weight on right foot. He stood from the bed (raised ~2 inches) max A x 1 with PT foot under pt's right foot in order to gauge WB. Pt was able to pivot transfer to chair set up on his left side with max assist. RLE WB was likely >25%. Pt required verbal and tactile cues to place hands on chair arms for control of descent. He was positioned in the chair with call light, personal phone, and tray table in reach . Pt and his family declined further mobility as pt is preparing to discharge to SNF. Chair alarm was on as PT departed. Gait Assessment Comments Gait Comments Unable at this time. During transfer, pt required max verbal and tactile cues for knee extension. PT-Balance Assessment Sitting Balance and Reactions Static Sitting Balance Ability Fair Dynamic Sitting Balance Ability Fair Standing Balance and Reactions Static Standing Balance Ability Poor Dynamic Standing Balance Ability Poor Device Used FWW M5 PT-IP Objective Assessments Start: 05/04/21 12:50 Freq: NEEDED Status: Active Protocol: Document 05/04/21 09:25 AB (Rec: 05/04/21 13:05 AB [id number]) Orientation Orientation/Cognition Level of Alertness Confusional State Orientation Name,Situation Safety Awareness Decreased Safety Awareness Memory Description Short Term Impaired,[facility] Impaired Gross Range of Motion Lower Extremity ROM Assessment Right Impaired Impairments RLE increase guarding with mobility Strength Lower Extremity Strength Assessment Right Impaired Hip 3-/5 Knee 3+/5 Coordination Assessment Gross Coordination Gross Coordination Impaired Muscle Tone Muscle Tone WNL Yes M6 PT-IP Treatment Start: 05/04/21 12:50 Freq: NEEDED Status: Active Protocol: Document 05/05/21 10:17 AW (Rec: 05/05/21 10:35 AW [id number]) Physical Therapy Treatment Exercises Exercises Ankle Pumps Education Education Provided Weight Bearing Status,Safety M7 PT-IP Assessment and Plan Start: 05/04/21 12:50 Freq: NEEDED Status: Active Protocol: Document 05/05/21 10:17 AW (Rec: 05/05/21 10:35 AW [id number]) PT Summary Assessment and Plan Potential Rehabilitation Potential Fair Summary Impairments Pain,ROM,Strength,Balance, Coordination,Sensation,Tone, Cognition,Bed Mobility, Transfers,Gait,Activity Tolerance Progress Towards Goals Slow Progress due to Pain,Slow Progress due to Activity Tolerance,Slow Progress - Other Assessment Summary Pt continues to require max A x 2 due to pain, poor safety awareness, and inability to maintain TTWB RLE. Pt will need SNF rehab to improve strength and mobility. Goals Bed Mobility Goal Minimal Assistance Transfer Goal Minimal Assistance,Front Wheeled Walker Gait Goal Minimal Assistance,Front Wheel Walker Gait Distance 30 Other Goals improve bed mobility to SBA, transfers and ambulation 50 ft using FWW CGA Days to Meet Goals 10 Frequency of Treatment Frequency Of Treatment Twice a Day Treatment Plan Physical Therapy Treatment Plan Bed Mobility Training,Transfer Training,Gait Training, Therapeutic Exercise,Balance Retraining,Post Op Education, Discharge Planning,Hot or Cold Pack,Neuromuscular Re-ed, Coordination Retraining,Manual Therapy Precautions Other Precautions R trochanteric precaution; RLE TTWB Recommendations To Nursing Amount of Assist Needed Mechanical Lift Discharge Recommendations PT Discharge Recommendations SNF Rehab Transportation Needs at Discharge Wheelchair/Cabulance
--- NOTE | 2021-05-05 11:17 | PC.NURSE ---
IV's removed. Lidocaine patch to right hip area. Family at bedside. Report called to Linda RAO at [facility]. All questions answered and Pt ready for discharge to SNF at 1200.
--- NOTE | 2021-05-05 11:26 | CM.DPC ---
DCP/continued: Reviewed chart. Spoke with provider and he reports that patient is medically stable for discharge to SNF today. Current plan is for patient to go to [facility] via private pay. Patient currently OBS status. DRINKING WATER TECHNICIAN met with patient and family to confirm plan. All aware and agreeable. Orders for d/c obtained and sent to [facility]. Spoke with Eliana at [facility] and she confirms plan. Patient scheduled to be picked up around 12:00pm. RN updated and given number to call report. P: [facility] today. SUSANA Prakash
[2021-05-05] MEDS: ACETAMINOPHEN 325 MG TABLET 975 MG PO (11:36)
--- NOTE | 2021-05-05 12:10 | PT.IPTN ---
Current Diagnoses Pathological fracture, right femur, initial encounter for fracture (05/03/21) Physical Therapy Treatment Note M2 PT-IP Current Condition Start: 05/04/21 12:50 Freq: NEEDED Status: Discharge Protocol: Document 05/04/21 09:25 AB (Rec: 05/04/21 13:05 AB [email or web address]) Physical Therapy Current Condition Current Condition Evaluation Date 05/04/21 Treatment Diagnosis R trochanteric fx; difficulty in walking Onset Date 05/03/21 Precautions Other Precautions trochanteric precaution RLE Weight Bearing Status Weight Bearing Status Touch Down Weight Bearing Allowed Weight Bearing Amount (enter % RLE: TTWB or #) (%) M3 PT-IP Subjective Start: 05/04/21 12:50 Freq: NEEDED Status: Discharge Protocol: Document 05/05/21 12:10 AW (Rec: 05/05/21 12:15 AW [id number]) Subjective Physical Therapy Visit Type Type Treatment Note Visit Start Time 12:00 Visit Stop Time 12:10 Total Visit Minutes 10 Notes Pt is discharging to [facility] . RN called for assist with bed to w/c transfer Number of RISK AND INSURANCE MANAGER Visits 0 Physical Therapy Visit Comments Patient Comments Pt is ready to go to rehab M4 PT-IP Mobility and Gait Start: 05/04/21 12:50 Freq: NEEDED Status: Discharge Protocol: Document 05/05/21 12:10 AW (Rec: 05/05/21 12:15 AW [id number]) PT-Bed Mobility Assessment Supine to Sit Supine to Sit Maximum Assistance,2 Person Assistance,Head of Bed Elevated,Bedrails Scooting Scooting to Edge of Bed Maximum Assistance PT-Transfer Assessment Sit to and From Stand Sit to and from Stand Maximum Assistance,Use of Upper Extremities Equipment Transfer Assistive Device Gait Belt,Front Wheeled Walker Orthotic/Prosthetic Devices or Brace: No Transfers Transfer Destination Wheelchair Transfer Technique Stand Pivot Transfer Ability Level of Assist Maximum Assistance,2 Person Assistance,Use of Upper Extremities Comments Mobility Comments Pt was finishing lunch as PT arrived. He needed max assist x 2 for supine to sit and then agreed to transfer to w/c set up on his left side. Using FWW, he stood max assist and completed SPT to w/c with max cues and assist for TTWB RLE. Pt was positioned on the w/c and left with nursing and transport staff. PT-Balance Assessment Sitting Balance and Reactions Static Sitting Balance Ability Fair Dynamic Sitting Balance Ability Fair Standing Balance and Reactions Static Standing Balance Ability Poor Dynamic Standing Balance Ability Poor Device Used FWW M5 PT-IP Objective Assessments Start: 05/04/21 12:50 Freq: NEEDED Status: Discharge Protocol: Document 05/04/21 09:25 AB (Rec: 05/04/21 13:05 AB [email or web address]) Orientation Orientation/Cognition Level of Alertness Confusional State Orientation Name,Situation Safety Awareness Decreased Safety Awareness Memory Description Short Term Impaired,[facility] Impaired Gross Range of Motion Lower Extremity ROM Assessment Right Impaired Impairments RLE increase guarding with mobility Strength Lower Extremity Strength Assessment Right Impaired Hip 3-/5 Knee 3+/5 Coordination Assessment Gross Coordination Gross Coordination Impaired Muscle Tone Muscle Tone WNL Yes M6 PT-IP Treatment Start: 05/04/21 12:50 Freq: NEEDED Status: Discharge Protocol: Document 05/05/21 12:10 AW (Rec: 05/05/21 12:15 AW [id number]) Physical Therapy Treatment Education Education Provided Weight Bearing Status,Safety M7 PT-IP Assessment and Plan Start: 05/04/21 12:50 Freq: NEEDED Status: Discharge Protocol: Document 05/05/21 12:10 AW (Rec: 05/05/21 12:15 AW [id number]) PT Summary Assessment and Plan Potential Rehabilitation Potential Fair Summary Impairments Pain,ROM,Strength,Balance, Coordination,Sensation,Tone, Cognition,Bed Mobility, Transfers,Gait,Activity Tolerance Progress Towards Goals Slow Progress due to Pain,Slow Progress due to Activity Tolerance,Slow Progress - Other Assessment Summary Pt has some recall of WB restriction but needs max cues to maintain same. Pt heading to SNF rehab at this time. Goals Bed Mobility Goal Minimal Assistance Transfer Goal Minimal Assistance,Front Wheeled Walker Gait Goal Minimal Assistance,Front Wheel Walker Gait Distance 30 Other Goals improve bed mobility to SBA, transfers and ambulation 50 ft using FWW CGA Days to Meet Goals 10 Frequency of Treatment Frequency Of Treatment Twice a Day Treatment Plan Physical Therapy Treatment Plan Bed Mobility Training,Transfer Training,Gait Training, Therapeutic Exercise,Balance Retraining,Post Op Education, Discharge Planning,Hot or Cold Pack,Neuromuscular Re-ed, Coordination Retraining,Manual Therapy Precautions Other Precautions R trochanteric precaution; RLE TTWB Recommendations To Nursing Amount of Assist Needed Mechanical Lift Discharge Recommendations PT Discharge Recommendations SNF Rehab Transportation Needs at Discharge Wheelchair/Cabulance
--- NOTE | 2021-05-05 12:11 | PC.NURSE ---
Pt out via w/c by Facility Designee with all belongings and packet.
== END 2021-05-05 12:12 ==
LOC: ED 17:33 → AC 18:18
PROVIDERS: Admitting Provider Internal Medicine; Emergency Provider Emergency Medicine; PCP Family Medicine; Referring Provider Emergency Medicine; Visit Provider Internal Medicine
DX: M84.451A Pathological fracture, right femur, initial encounter for fracture (principal); R53.1 Weakness; I25.10 Atherosclerotic heart disease of native coronary artery without angina pectoris; I10 Essential (primary) hypertension; E78.5 Hyperlipidemia, unspecified; Z87.891 Personal history of nicotine dependence; Z86.73 Personal history of transient ischemic attack (TIA), and cerebral infarction without residual deficits; N40.1 Benign prostatic hyperplasia with lower urinary tract symptoms; G31.84 Mild cognitive impairment of uncertain or unknown etiology; Z20.822 Contact with and (suspected) exposure to COVID-19; R47.81 Slurred speech
CPT/HCPCS: 36415; 70450; 70496; 70498; 71045; 72192; 73502; 80048; 80053; 80305; 81003; 82550; 82962; 83735; 84484; 85025; 87635; 93005; 94760; 96372; 96374; 97110; 97162; 97167; 97530; 97535; 99285; C9803; G0378; J1650; J2270

== ENCOUNTER → 2021-06-05 20:34 | Outpatient (ROUT) | payer MEDICARE, OTHER, SELFPAY ==
[2021-05-03 19:18] VITALS: BMI 23.5
[2021-06-05 20:37] LABS: Bacteria Urine None Seen; RBC Urine None Seen (0-5/HPF); WBC Urine None Seen (0-5/HPF)
[2021-06-05 21:03] LABS: Appearance Urine UA CLEAR; Bilirubin Urine UA NEGATIVE (NEGATIVE); Color Urine UA YELLOW; Glucose Urine UA NEGATIVE (Negative); Ketones Urine UA NEGATIVE (NEGATIVE); Leukocyte Esterase Urine UA NEGATIVE (NEGATIVE); Nitrite Urine UA NEGATIVE (Negative); Occult Blood Urine UA NEGATIVE (Negative); Protein Urine UA NEGATIVE (Negative); Urobilinogen Urine UA 0.2 E.U./dL (0.2); pH Urine UA 6.5 (4.5-8.0)
[2021-06-05 21:12] LABS: Culture Indicated Urine Cult Not Indicated; Urine Comments Microscopic Normal
== END ==
PROVIDERS: PCP Family Medicine; Visit Provider Nurse Practitioner
DX: N39.0 Urinary tract infection, site not specified (principal)
CPT/HCPCS: 81001

== ENCOUNTER → 2021-08-15 12:53 | Outpatient (CLI) | payer MEDICARE, OTHER, SELFPAY ==
[2021-05-03 19:18] VITALS: BMI 23.5
--- NOTE | 2021-08-15 12:55 | DI.RAD.S_ITS ---
PROCEDURE: XR ANKLE RT MIN 3V INDICATIONS: painful ankle TECHNIQUE: Three views of the ankle were acquired. COMPARISON: None. FINDINGS: Bones: No fractures or dislocations. Ankle mortise is normally aligned. No suspicious bony lesions. Mild tibiotalar degenerative joint space loss and spurring. Plantar calcaneal spur. Soft tissues: Small tibiotalar joint effusion. Achilles tendon appears normal. Moderate small vessel calcification. IMPRESSION: 1. Tibiotalar joint effusion is nonspecific and may be secondary to arthritis or trauma. 2. No fractures. 3. Vascular calcification. Dictated by: Marta To M.D. on 08/15/2021 at 13:50 Approved by: Marta To M.D. on 08/15/2021 at 13:52
== END ==
PROVIDERS: PCP Internal Medicine; Referring Provider Nurse Practitioner; Visit Provider Nurse Practitioner
DX: M25.571 Pain in right ankle and joints of right foot (principal)
CPT/HCPCS: 73610

== ENCOUNTER 2022-04-04 09:11 | Observation (INO) | payer MEDICARE, OTHER, SELFPAY ==
[2021-05-03 19:18] VITALS: BMI 23.5
[2022-04-04] VITALS (14 sets, daily range): BP systolic 139–181; BP diastolic 77–92; PULSE 58–67; RESP 15–21; TEMP 35.9–36.4; O2SAT 92–98; BMI 25.0
--- NOTE | 2022-04-04 09:11 | DI.CT.S_ITS ---
PROCEDURE: CT STROKE INDICATIONS: unresponsive TIA vs stroke symptoms have resolved TECHNIQUE: Noncontrast 4.5 mm thick angled axial sections acquired from the foramen magnum to the vertex, with coronal reformats. For radiation dose reduction, the following was used: automated exposure control, adjustment of mA and/or kV according to patient size. COMPARISON: Located Within [facility], CT, CT ANGIO HEAD AND NECK, 05/03/2021, 17:10. FINDINGS: Image quality: Excellent. CSF spaces: Basal cisterns are patent. No extra-axial fluid collections. The ventricles are symmetric in size and shape. Brain: No intracranial bleeds or masses. There is cerebral volume loss for age, with resultant ventricular and sulcal prominence. There are periventricular and deep white matter chronic small vessel ischemic changes. Small chronic left basal ganglia lacunar infarcts. Small chronic lacunar infarct in the left cerebellar hemisphere. There is intracranial internal carotid artery and vertebral artery atherosclerosis. Skull and face: Calvarium and visualized facial bones appear intact, without suspicious lesions. Sinuses: Visualized sinuses and mastoids are clear. IMPRESSION: No acute intracranial disease process. Findings discussed with Dr. Salazar on April 04, 2022 at 9:22 a.m. This study fulfills neurological imaging criteria for inclusion or exclusion of acute stroke therapies based on available published neurological guidelines. Dictated by: Helga Taylor MD, PhD on 04/04/2022 at 9:22 Approved by: Helga Taylor MD, PhD on 04/04/2022 at 9:26
--- NOTE | 2022-04-04 09:22 | ED.GENADULT ---
HPI - General Adult General Chief complaint: Neuro Symptoms/Deficit Stated complaint: Unresponsive Time Seen by Provider: 04/04/22 09:11 Source: patient and EMS Mode of arrival: EMS Limitations: no limitations History of Present Illness HPI narrative: Patient is an 86-year-old male arrived as a code stroke however prior to arrival EMS reports that the patient was back to ?normal ?EMS was called by the patient's this morning after he was found unresponsive/slumped over on a chair however EMS reports that the chair tonight have a back on it and he was maintaining strength in his trunk. It was reported that this morning he was at his baseline state health. Actually when out and walked the dog. Had approximately 0800 hours was when the found him. Blood sugar was greater than 100. Was initially reported by Kellie CRABTREE that he had right-sided weakness and by the time when paramedics arrived this seems to have resolved. The did state that he was somewhat confused upon arrival and was hypoxic to the high 80s and they gave him oxygen by nasal cannula in the seem to improve his symptoms. There is no signs of trauma.. The emergency department the patient is confused about why he is here. He knows that he is in the emergency department. He does not have any specific complaints. Related Data Home Medications Medication Instructions Recorded Confirmed losartan 50 mg tablet 50 mg PO BID 12/28/18 08/15/21 amlodipine 5 mg tablet (Norvasc) 5 mg PO DAILY 05/03/21 08/15/21 rosuvastatin 10 mg tablet 10 mg PO BEDTIME 05/03/21 08/15/21 Allergies Allergy/AdvReac Type Severity Reaction Status Date / Time bee venom protein (honey bee) Allergy Verified 04/04/22 09:23 Review of Systems Review of Systems ROS Unobtainable: All systems reviewed & are unremarkable except as noted in HPI and below Constitutional Comments: Did as headache Eyes Comments: Denies vision changes Cardiovascular Comments: Denies chest pain Respiratory Comments: Denies shortness of breath Gastrointestinal Comments: Denies abdominal pain Musculoskeletal Comments: Denies pain in his arms or legs Integumentary/Breasts Skin/Breast: Reports system reviewed and no additional complaints, except as documented Neurologic Neurologic: Reports as per HPI Psychiatric Psychiatric: Reports system reviewed and no additional complaints, except as documented Hematologic/Lymphatic Comments: No reported blood thinners Patient History Medical History (Updated 04/04/22 @ 11:50 by Haris Salazar DO) BPH (benign prostatic hyperplasia) Elevated cholesterol Hypertension Left inguinal hernia 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 Brother No problems noted. Social History household members: spouse Smoking Status: Never smoker alcohol intake: current Smoking Status: Never smoker alcohol intake frequency: holidays/special occasions only Substance Use Type: does not use Exam Initial Vital Signs Initial Vital Signs: Vital Signs Temperature 96.7 F L 04/04/22 09:05 Pulse Rate 60 04/04/22 09:05 Respiratory Rate 17 04/04/22 09:05 Blood Pressure 155/77 H 04/04/22 09:05 Pulse Oximetry 95 04/04/22 09:05 Const General: disheveled HENMT Head: normal to inspection and normocephalic Eyes EOM: EOM intact bilaterally Resp Effort & Inspection: normal respiratory effort Auscultation: clear to auscultation bilaterally Cardio Rate: regular rate Rhythm: regular rhythm GI Inspection: normal to inspection and non-distended Palpation: soft Skin General: no rashes or lesions noted Neuro General: patient alert, patient awake and moves all extremities Other: See NIH score Extrem General: normal to inspection and capillary refill normal Psych Appearance: disheveled Scores GCS [place] coma scale eye opening: Spontaneous Jeffrey coma scale verbal response: Confused Jeffrey coma scale motor response: Obey commands Jeffrey coma scale total score: 14 NIH Stroke Scale Level of Conciousness: Alert, keenly responsive Ask month/age: Answers neither question correctly, aphasic, stuporous, coma Open/close eyes, close hand: Performs both tasks correctly Best gaze horizontal: Normal Visual layton: Partial hemianopia Facial palsy: Minor paralysis, flattened nasolabial fold, asymmetry on smiling Left arm drift: No drift for full 10 sec Right arm drift: No drift for full 10 sec Left leg drift: Drifts down, not to bed Right leg drift: Drifts down, not to bed Limb ataxia: Present in two limbs Sensory on face/arms/legs: Normal, no sensory loss Best language: No aphasia, normal Dysarthria: Normal Extinction or inattention: No abnormality Total NIH Stroke scale score: 8 Course Orders Ordered: ED Orders 04/04/22 09:11 CT Stroke Stat 04/04/22 09:13 EKG-12 Lead Stat 04/04/22 09:25 COVID19 -Nasal RAPID/Pre-Proc Stat Complete Blood Count AUTO DIFF Stat Comprehensive Metabolic Panel Stat Ethanol (ETOH) Stat Lipase Stat Prolactin Stat Troponin & CK Cardiac Panel Stat 04/04/22 09:49 CT angio head and neck Stat 04/04/22 10:41 MR head/brain wo con Stat Discontinued Medications Aspirin (Aspirin 81 Mg Chew Tab) 324 mg PO NOW ONE Stop: 04/04/22 10:15 Last Admin: 04/04/22 10:35 Dose: 324 mg Documented by: [email or web address] Vital Signs Vital signs: Vital Signs - 8 hr 04/04/22 09:05 04/04/22 09:18 04/04/22 09:41 Temperature 96.7 F L Pulse Rate 60 59 L 58 L Respiratory Rate 17 16 16 Blood Pressure 155/77 H Pulse Oximetry 95 92 95 04/04/22 10:00 04/04/22 10:30 04/04/22 10:44 Temperature Pulse Rate 58 L 58 L 63 Respiratory Rate 16 16 21 Blood Pressure 181/84 H Pulse Oximetry 94 94 98 04/04/22 10:45 Temperature Pulse Rate 62 Respiratory Rate 18 Blood Pressure 181/84 H Pulse Oximetry 98 Medical Decision Making Lab Data Result diagrams: 04/04/22 09:25 04/04/22 09:25 Labs: Lab Results 04/04/22 04/04/22 04/04/22 Range/Units 09:25 09:25 09:25 WBC 5.0 (4.5-11.0) X10^3/uL RBC 4.69 (4.5-5.9) X10^6/uL Hgb 13.9 (13.5-17.5) g/dL Hct 41.5 (41-53) % MCV 88.5 (80-100) fL MCH 29.6 (26-34) PG MCHC 33.5 (30-36) % RDW 14.3 (11.6-14.8) % Plt Count 205 (150-400) X10^3/uL Neut % (Auto) 67.0 (50-75) % Lymph % (Auto) 17.6 L (25-40) % Benzie % (Auto) 13.4 (3-14) % Eos % (Auto) 1.2 L (2-4) % Baso % (Auto) 0.8 (0-2) % Neut # (Auto) 3300 (6276-7125) /uL Lymph # (Auto) 900 L (4219-4695) /uL Benzie # (Auto) 700 (0-900) /uL Eos # (Auto) 100 (0-450) /uL Baso # (Auto) 0 (0-100) /uL Sodium 136 L (137-145) mmol/L Potassium 4.2 (3.4-5.1) mmol/L Chloride 108 H (98-107) mmol/L Carbon Dioxide 24 (22-32) mmol/L BUN 31 H (9-20) mg/dL Creatinine 1.13 (0.66-1.25) mg/dL Estimated GFR > 60 (>60) mL/min BUN/Creatinine Ratio 27.4 H (6-22) Glucose 128 H (80-110) mg/dL Calcium 8.4 (8.4-10.2) mg/dL Total Bilirubin 0.5 (0.2-1.3) mg/dL AST 33 (17-59) IU/L ALT 24 (<50) IU/L Alkaline Phosphatase 64 (38-126) U/L Total Creatine Kinase 137 (55-170) U/L CK-MB (CK-2) 3.43 H (<2.37) ng/mL CK-MB (CK-2) Rel Index 2.5 (1.5-5.0) % Troponin I < 0.012 (0.01-0.034) ng/mL Total Protein 6.9 (6.3-8.2) g/dL Albumin 3.8 (3.5-5.0) g/dL Globulin 3.1 (1.7-4.1) g/dL Albumin/Globulin Ratio 1.2 (1.0-2.8) Lipase 55 (23-300) U/L Prolactin 49.4 H (3.7-17.9) ng/mL Ethyl Alcohol < 10 ( - 10) mg/dL SARS-CoV-2 (PCR) (Negative) 04/04/22 Range/Units 09:25 WBC (4.5-11.0) X10^3/uL RBC (4.5-5.9) X10^6/uL Hgb (13.5-17.5) g/dL Hct (41-53) % MCV (80-100) fL MCH (26-34) PG MCHC (30-36) % RDW (11.6-14.8) % Plt Count (150-400) X10^3/uL Neut % (Auto) (50-75) % Lymph % (Auto) (25-40) % Benzie % (Auto) (3-14) % Eos % (Auto) (2-4) % Baso % (Auto) (0-2) % Neut # (Auto) (8400-4463) /uL Lymph # (Auto) (5603-4530) /uL Benzie # (Auto) (0-900) /uL Eos # (Auto) (0-450) /uL Baso # (Auto) (0-100) /uL Sodium (137-145) mmol/L Potassium (3.4-5.1) mmol/L Chloride (98-107) mmol/L Carbon Dioxide (22-32) mmol/L BUN (9-20) mg/dL Creatinine (0.66-1.25) mg/dL Estimated GFR (>60) mL/min BUN/Creatinine Ratio (6-22) Glucose (80-110) mg/dL Calcium (8.4-10.2) mg/dL Total Bilirubin (0.2-1.3) mg/dL AST (17-59) IU/L ALT (<50) IU/L Alkaline Phosphatase (38-126) U/L Total Creatine Kinase (55-170) U/L CK-MB (CK-2) (<2.37) ng/mL CK-MB (CK-2) Rel Index (1.5-5.0) % Troponin I (0.01-0.034) ng/mL Total Protein (6.3-8.2) g/dL Albumin (3.5-5.0) g/dL Globulin (1.7-4.1) g/dL Albumin/Globulin Ratio (1.0-2.8) Lipase (23-300) U/L Prolactin (3.7-17.9) ng/mL Ethyl Alcohol ( - 10) mg/dL SARS-CoV-2 (PCR) Negative (Negative) Imaging Data CT scan - head: Radiologist's Impression: [address] [address] [address] Scan Report Signed Patient: Jaron Zayas MR#: [id number] : 1935 Acct:[id number] Age/Sex: 86 / M Date of Service: 04/04/22 Loc: ED Accession Number: [id number] ?? Procedure: CT Stroke Ordering Provider: Haris Salazar D.O. PROCEDURE:? CT STROKE ? INDICATIONS:? unresponsive TIA vs stroke symptoms have resolved ? TECHNIQUE:? Noncontrast 4.5 mm thick angled axial sections acquired from the foramen magnum to the vertex, with coronal reformats.? For radiation dose reduction, the following was used:? automated exposure control, adjustment of mA and/or kV according to patient size.? ? COMPARISON:? [facility], CT, CT ANGIO HEAD AND NECK, 05/03/2021, 17:10. ? FINDINGS:? Image quality:? Excellent.? ? CSF spaces:? Basal cisterns are patent.? No extra-axial fluid collections.? The ventricles are symmetric in size and shape.? ? Brain:? No intracranial bleeds or masses.? There is cerebral volume loss for age, with resultant ventricular and sulcal prominence.? There are periventricular and deep white matter chronic small vessel ischemic changes.? Small chronic left basal ganglia lacunar infarcts.? Small chronic lacunar infarct in the left cerebellar hemisphere.? There is intracranial internal carotid artery and vertebral artery atherosclerosis.? ? Skull and face:? Calvarium and visualized facial bones appear intact, without suspicious lesions.? ? Sinuses:? Visualized sinuses and mastoids are clear.? ? IMPRESSION:? No acute intracranial disease process. ? Findings discussed with Dr. Salazar on April 04, 2022 at 9:22 a.m. ? This study fulfills neurological imaging criteria for inclusion or exclusion of acute stroke therapies based on available published neurological guidelines.? ? ? Dictated by: Helga Taylor MD, PhD on 04/04/2022 at 9:22 ? ? Approved by: Helga Taylor MD, PhD on 04/04/2022 at 9:26?? CTA - brain/neck: Radiologist's Impression: [address] [address] [address] Scan Report Signed Patient: Jaron Zayas MR#: [id number] : 1935 Acct:[id number] Age/Sex: 86 / M Date of Service: 04/04/22 Loc: ED Accession Number: [id number] ?? Procedure: CT angio head and neck Ordering Provider: Haris Salazar D.O. PROCEDURE:? CT ANGIO HEAD AND NECK ? INDICATIONS:? code stroke slurred speech ? TECHNIQUE:? Noncontrast images were performed earlier in the day and not repeated.? ? After the administration of intravenous contrast, 1 mm thick sections acquired from the aortic arch through the [place] of [place].? Post-contrast 4.5 mm thick sections then re-acquired from the foramen magnum to the vertex.? 3-dimensional mgryvpg-yeirjwfxn-rxwrmolwqq (MIP) and/or volume rendering reformats were acquired of the central intracranial vasculature and neck separately. For radiation dose reduction, the following was used:? automated exposure control, adjustment of mA and/or kV according to patient size.? ? COMPARISON:? [facility], CT, CT STROKE, 05/03/2021, 16:22.? [facility], CT, CT HEAD/BRAIN WO CON, 06/12/2019, 9:23.? [facility], CT, CT ANGIO HEAD AND NECK, 05/03/2021, 17:10.? [facility], CT, CT STROKE, 04/04/2022, 9:09. ? FINDINGS:? Image quality:? Excellent.? ? BRAIN:? CSF spaces:? Ventricles are normal in size and shape.? Basal cisterns are patent.? No extra-axial fluid collections.? ? Brain:? No midline shift.? No intracranial bleeds or masses.? Luna-white matter interface appears intact.? ? Skull and face:? Calvarium and facial bones appear intact, without suspicious lesions.? Orbits appear normal.? ? Sinuses:? Sinuses and mastoids are clear.? ? HEAD CT ANGIOGRAPHY:? Anterior circulation:? Intracranial internal carotid arteries demonstrate generalized atherosclerotic calcification and irregularity, with 40-50% narrowing on each side..? The flow within the paired anterior cerebral arteries is normal and symmetric.? The flow within the middle cerebral arteries is normal and symmetric.? The anterior communicating artery is seen.? No aneurysms are seen.? ? Posterior circulation:? Visualized portions of the vertebral arteries demonstrate normal caliber, and join to form a normal appearing basilar artery.? Flow within the posterior cerebral arteries is normal and symmetric.? No aneurysms are seen.? ? NECK CT ANGIOGRAPHY:? Carotid system:? The great vessels demonstrate a conventional anatomy as they arise from the aortic arch.? The origins of the common carotid arteries appear patent.? The common carotid arteries demonstrate normal caliber.? The proximal common carotid arteries are tortuous.? The bifurcation regions are both widely patent.? The internal carotid arteries demonstrate normal calibers and courses.? ? Posterior circulation:? The origins of the vertebral arteries both appear widely patent.? The more superior extracranial portions of both vertebral arteries also demonstrate normal courses and calibers.? They join to form a normal appearing basilar artery.? ? Soft tissues:? Visualized neck soft tissues demonstrate no suspicious abnormalities.? Several small hyperenhancing nodules can be seen involving the right thyroid.? Mild dependent ground-glass opacity can be seen within the lung apices. ? Bones:? No suspicious bony lesions.? Visualized cervical spine appears normally aligned.? Moderate lower cervical spine degenerative changes are seen. ? ? IMPRESSION:? No significant intracranial arterial abnormality is seen.? ? Within the arteries of the neck, no hemodynamically significant stenosis can be seen. ? ? Dependently layering ground-glass opacity can be seen within the lung apices.? Please consider pulmonary edema. ? Within the thyroid, hyperenhancing right-sided nodules are seen, which are similar to the prior.? If clinically appropriate, please consider a follow-up thyroid ultrasound for further evaluation. ? Incidental note is made of: Moderate lower cervical spine degenerative change ? Any quantitative measurements of stenosis were performed using NASCET criteria.? ? ? Dictated by: Chaparro Miller M.D. on 04/04/2022 at 9:09 ? ? Approved by: Chaparro Miller M.D. on 04/04/2022 at 9:13?? MRI stroke: Radiologist's Impression: [address] [address] Magnetic Resonance Report Signed Patient: Jaron Zayas MR#: [id number] : 1935 Acct:[id number] Age/Sex: 86 / M Date of Service: 04/04/22 Loc: 90A-1 Accession Number: [id number] ?? Procedure: MR head/brain wo con Ordering Provider: Haris Salazar D.O. PROCEDURE:? MR HEAD/BRAIN WO CON ? INDICATIONS:? tia vs CVA ? TECHNIQUE:? Non-contrast axial T1 spin echo, axial T2 fast spin echo, sagittal and axial FLAIR, coronal T2 fast spin echo, axial gradient echo, axial diffusion and ADC through the brain.? ? COMPARISON:? [facility], CT, CT ANGIO HEAD AND NECK, 04/04/2022, 9:33. ? FINDINGS:? Image quality:? Excellent.? ? CSF spaces:? Ventricles appear symmetric in size and shape.? Basal cisterns are patent.? No extra-axial fluid collections.? ? Brain:? No acute intracranial bleeds or mass effects.? There are a few small foci of low gradient echo signal intensity within the right superomedial frontal lobe, the left anterolateral frontal lobe, and within the left medial cerebellar hemisphere.? There is cerebral volume loss for age.? There are periventricular and deep white matter chronic small vessel ischemic changes.? Brainstem appears normal.? Diffusion-weighted images demonstrate a 10 mm focus of elevated signal intensity within the right mid/anterior sebastian radiata which demonstrates moderate FLAIR signal elevation.? No chronic ischemic insults.? Normal intravascular flow voids are present.? ? Skull and face:? Calvarial bone marrow is normal in signal.? Orbits are normal.? ? Sinuses:? Sinuses and mastoids are clear.? ? IMPRESSION:? 1. Subacute infarct within the right sebastian radiata. 2. Volume loss and small vessel ischemic disease. 3. 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 No evidence of acute intracranial hemorrhage is present.? ? ? Dictated by: Briana Haskins M.D. on 04/04/2022 at 11:19 ? ? Approved by: Briana Haskins M.D. on 04/04/2022 at 11:38?? ECG Data Attestation: I personally reviewed and interpreted this ECG as follows: Interpretation: Sinus rhythm Ventricular rate of 60 Right bundle branch block QRS 1 5 milliseconds QTC [address] T changes MDM Narrative Medical decision making narrative: Was initially reported that the patient was back to baseline upon arrival here to the emergency department. He is somewhat confused about what happened to him this morning and the here in his age. Unsure if this is baseline for him. He does have left-sided facial droop. He has bilateral lower extremity weakness that is equal on both sides. He has difficulty with heel to paiz both of his lower extremities. Unsure as to whether not this is his comprehension of what I am asking him to do or potentially weakness. I did discuss the case with Stroke Neurology who reviewed the head CT. They recommended given the patient's age, his presenting symptoms which is essentially just left-sided facial droop and with even this where unsure if this is new and bilateral lower extremity weakness that they did not recommend tPA. CTA shows no large vessel occlusion. I recommended aspirin. Admission to the hospital for TIA/stroke workup. Discussed the case with Dr. Tyson who will admit for further evaluation and treatment. Critical Care Time Critical Care Time Critical Care Time: Yes Total Critical Care Time: 35 Attestation: The high probability of a clinically significant, sudden or life threatening deterioration of the no logic system(s) required my full and direct attention, intervention and personal management. The aggregate critical care time was [35] minutes. This time is in addition to time spent performing reported procedures but includes the following: [x] Data Review and interpretation [x] Patient assessment and monitoring of vital signs [x] Documentation [x] Medication orders and management Discharge Plan Departure Patient Disposition: Admitted As Inpatient Clinical Impression: CVA (cerebral vascular accident) Admit Date/Time: 04/04/22 10:57 Admit Provider: Raghu Tyson
[2022-04-04 09:37] LABS: Add Manual Diff / Slide Review NO; Basophils Absolute Auto 0 /uL (0-100); Basophils Percent Auto 0.8 % (0-2); Eosinophils Absolute Auto 100 /uL (0-450); Eosinophils Percent Auto 1.2 % (2-4); Hematocrit 41.5 % (41-53); Hemoglobin 13.9 g/dL (13.5-17.5); Lymphocytes Absolute Auto 900 /uL (1100-4500); Lymphocytes Percent Auto 17.6 % (25-40); Mean Corpuscular HGB Conc 33.5 % (30-36); Mean Corpuscular Hemoglobin 29.6 PG (26-34); Mean Corpuscular Volume 88.5 fL (80-100); Monocytes Absolute Auto 700 /uL (0-900); Monocytes Percent Auto 13.4 % (3-14); Neutrophils Absolute Auto 3300 /uL (1500-7000); Platelet Count 205 X10^3/uL (150-400); Red Blood Cell Count 4.69 X10^6/uL (4.5-5.9); Red Cell Distribution Width 14.3 % (11.6-14.8)
--- NOTE | 2022-04-04 09:49 | DI.CT.S_ITS ---
PROCEDURE: CT ANGIO HEAD AND NECK INDICATIONS: code stroke slurred speech TECHNIQUE: Noncontrast images were performed earlier in the day and not repeated. After the administration of intravenous contrast, 1 mm thick sections acquired from the aortic arch through the [place]. Post-contrast 4.5 mm thick sections then re-acquired from the foramen magnum to the vertex. 3-dimensional sxaorux-vipabaulk-wjdpdivfze (MIP) and/or volume rendering reformats were acquired of the central intracranial vasculature and neck separately. For radiation dose reduction, the following was used: automated exposure control, adjustment of mA and/or kV according to patient size. COMPARISON: [facility], CT, CT STROKE, 05/03/2021, 16:22. [facility], CT, CT HEAD/BRAIN WO CON, 06/12/2019, 9:23. [facility], CT, CT ANGIO HEAD AND NECK, 05/03/2021, 17:10. [facility], CT, CT STROKE, 04/04/2022, 9:09. FINDINGS: Image quality: Excellent. BRAIN: CSF spaces: Ventricles are normal in size and shape. Basal cisterns are patent. No extra-axial fluid collections. Brain: No midline shift. No intracranial bleeds or masses. Luna-white matter interface appears intact. Skull and face: Calvarium and facial bones appear intact, without suspicious lesions. Orbits appear normal. Sinuses: Sinuses and mastoids are clear. HEAD CT ANGIOGRAPHY: Anterior circulation: Intracranial internal carotid arteries demonstrate generalized atherosclerotic calcification and irregularity, with 40-50% narrowing on each side.. The flow within the paired anterior cerebral arteries is normal and symmetric. The flow within the middle cerebral arteries is normal and symmetric. The anterior communicating artery is seen. No aneurysms are seen. Posterior circulation: Visualized portions of the vertebral arteries demonstrate normal caliber, and join to form a normal appearing basilar artery. Flow within the posterior cerebral arteries is normal and symmetric. No aneurysms are seen. NECK CT ANGIOGRAPHY: Carotid system: The great vessels demonstrate a conventional anatomy as they arise from the aortic arch. The origins of the common carotid arteries appear patent. The common carotid arteries demonstrate normal caliber. The proximal common carotid arteries are tortuous. The bifurcation regions are both widely patent. The internal carotid arteries demonstrate normal calibers and courses. Posterior circulation: The origins of the vertebral arteries both appear widely patent. The more superior extracranial portions of both vertebral arteries also demonstrate normal courses and calibers. They join to form a normal appearing basilar artery. Soft tissues: Visualized neck soft tissues demonstrate no suspicious abnormalities. Several small hyperenhancing nodules can be seen involving the right thyroid. Mild dependent ground-glass opacity can be seen within the lung apices. Bones: No suspicious bony lesions. Visualized cervical spine appears normally aligned. Moderate lower cervical spine degenerative changes are seen. IMPRESSION: No significant intracranial arterial abnormality is seen. Within the arteries of the neck, no hemodynamically significant stenosis can be seen. Dependently layering ground-glass opacity can be seen within the lung apices. Please consider pulmonary edema. Within the thyroid, hyperenhancing right-sided nodules are seen, which are similar to the prior. If clinically appropriate, please consider a follow-up thyroid ultrasound for further evaluation. Incidental note is made of: Moderate lower cervical spine degenerative change Any quantitative measurements of stenosis were performed using NASCET criteria. Dictated by: Chaparro Miller M.D. on 04/04/2022 at 9:09 Approved by: Chaparro Miller M.D. on 04/04/2022 at 9:13
[2022-04-04 09:54] LABS: COVID19 -Nasal RAPID Negative (Negative)
[2022-04-04 09:55] LABS: Alanine Aminotransferase 24 IU/L (<50); Albumin 3.8 g/dL (3.5-5.0); Albumin Globulin Ratio 1.2 (1.0-2.8); Alkaline Phosphatase 64 U/L (38-126); Aspartate Aminotransferase 33 IU/L (17-59); BUN Creatinine Ratio 27.4 (6-22); Bilirubin Total 0.5 mg/dL (0.2-1.3); Blood Urea Nitrogen 31 mg/dL (9-20); Calcium 8.4 mg/dL (8.4-10.2); Carbon Dioxide 24 mmol/L (22-32); Chloride 108 mmol/L (98-107); Creatine Kinase 137 U/L (55-170); Estimated Glomerular Filt Rate > 60 mL/min (>60); Ethanol (ETOH) < 10 mg/dL; Globulin 3.1 g/dL (1.7-4.1); Glucose 128 mg/dL (80-110); HEMOLYSIS < 15 (0-50); Lipase 55 U/L (23-300); Potassium 4.2 mmol/L (3.4-5.1); Sodium 136 mmol/L (137-145); Total Protein 6.9 g/dL (6.3-8.2)
[2022-04-04 10:07] LABS: Troponin I < 0.012 ng/mL (0.01-0.034)
[2022-04-04 10:11] LABS: CKMB % Relative Index 2.5 % (1.5-5.0); Creatine Kinase MB 3.43 ng/mL (<2.37)
[2022-04-04 10:12] LABS: Prolactin 49.4 ng/mL (3.7-17.9)
[2022-04-04] MEDS: ASPIRIN 81 MG CHEW TAB 324 MG PO (10:35)
--- NOTE | 2022-04-04 10:41 | DI.MRI.S_ITS ---
PROCEDURE: MR HEAD/BRAIN WO CON INDICATIONS: tia vs CVA TECHNIQUE: Non-contrast axial T1 spin echo, axial T2 fast spin echo, sagittal and axial FLAIR, coronal T2 fast spin echo, axial gradient echo, axial diffusion and ADC through the brain. COMPARISON: , CT, CT ANGIO HEAD AND NECK, 04/04/2022, 9:33. FINDINGS: Image quality: Excellent. CSF spaces: Ventricles appear symmetric in size and shape. Basal cisterns are patent. No extra-axial fluid collections. Brain: No acute intracranial bleeds or mass effects. There are a few small foci of low gradient echo signal intensity within the right superomedial frontal lobe, the left anterolateral frontal lobe, and within the left medial cerebellar hemisphere. There is cerebral volume loss for age. There are periventricular and deep white matter chronic small vessel ischemic changes. Brainstem appears normal. Diffusion-weighted images demonstrate a 10 mm focus of elevated signal intensity within the right mid/anterior sebastian radiata which demonstrates moderate FLAIR signal elevation. No chronic ischemic insults. Normal intravascular flow voids are present. Skull and face: Calvarial bone marrow is normal in signal. Orbits are normal. Sinuses: Sinuses and mastoids are clear. IMPRESSION: 1. Subacute infarct within the right sebastian radiata. 2. Volume loss and small vessel ischemic disease. 3. 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 No evidence of acute intracranial hemorrhage is present. Dictated by: Briana Haskins M.D. on 04/04/2022 at 11:19 Approved by: Briana Haskins M.D. on 04/04/2022 at 11:38
--- NOTE | 2022-04-04 14:32 | PM.HP.1 ---
History of Present Illness History of Present Illness Date Patient Seen: 04/04/22 Time Patient Seen: 14:32 Chief complaint: Unresponsive Narrative: Jaron Zayas is an 83-year-old male with a past medical history significant for HTN, HLD, prior syncope, short-term memory impairment, who was brought in by EMS after he was found by his unresponsive in a chair. Patient had walked his dog this morning, and the next thing he remembers is waking up in the hospital. He has no recollection of events. is not available at bedside at this time for review, but according to the ER provider he was found in the chair slumped over, she called EMS and he had truncal support at the time. They thought they noticed a right-sided weakness which had resolved fairly quickly. He was slightly confused in the emergency room according to the ER provider but had no complaints. He did note a facial droop on the left. In the emergency room, the patient was hypertensive but the remainder of his vital signs were unremarkable. Laboratory evaluation revealed an unremarkable CBC, chemistry panel was also unremarkable, alcohol level was negative, prolactin was slightly elevated at 49.4. COVID-[address] angiogram of his head and neck were unremarkable, MRI of his brain has already been performed and did show a subacute infarct in the right sebastian radiata. Patient History Medical History BPH (benign prostatic hyperplasia) Elevated cholesterol Hypertension Left inguinal hernia Local reaction to bee sting Memory deficit Surgical History H/O cataract removal with insertion of prosthetic lens History of right inguinal hernia repair History of right inguinal hernia repair Family & Social History Family History Mother Gall bladder disease Father No problems noted. Brother No problems noted. Social History: household members spouse Prior Living Arrangements House Safety & Behavioral: Feels Safe in Current Yes Environment Been Physically Hurt or No Threatened By a Person Tobacco & Substance use: Smoking Status Never smoker alcohol intake current alcohol intake frequency holiday/special occasion Substance Use Type does not use Meds Home Medications and Allergies Home Medications Medication Instructions Recorded Confirmed Type losartan 50 mg tablet 50 mg PO BID 12/28/18 04/04/22 History amlodipine 5 mg tablet (Norvasc) 5 mg PO DAILY 05/03/21 08/15/21 History rosuvastatin 10 mg tablet 10 mg PO BEDTIME 05/03/21 04/04/22 History hydralazine 25 mg tablet 25 mg PO DAILY 04/04/22 04/04/22 History metoprolol succinate 25 mg mg PO DAILY 04/04/22 History tablet,extended release 24 hr tamsulosin 0.4 mg capsule mg PO DAILY 04/04/22 History Allergies Allergy/AdvReac Type Severity Reaction Status Date / Time bee venom protein (honey bee) Allergy Verified 04/04/22 09:23 Review of Systems Review of Systems Narrative: All other systems reviewed with the patient and are negative unless otherwise stated. Exam Vital Signs (past 8 hours): - 04/04/22 09:05 04/04/22 09:18 04/04/22 09:41 Temperature 96.7 F L Pulse Rate 60 59 L 58 L Respiratory Rate 17 16 16 Blood Pressure 155/77 H Pulse Oximetry 95 92 95 04/04/22 10:00 04/04/22 10:30 04/04/22 10:44 Temperature Pulse Rate 58 L 58 L 63 Respiratory Rate 16 16 21 Blood Pressure 181/84 H Pulse Oximetry 94 94 98 04/04/22 10:45 04/04/22 11:13 04/04/22 11:50 Temperature 97.6 F Pulse Rate 62 61 Respiratory Rate 18 15 Blood Pressure 181/84 H 175/84 H Pulse Oximetry 98 93 97 Oxygen Delivery Method Room Air Oxygen Flow Rate 0 Narrative Exam Narrative: General:? Patient is well developed and well nourished, in no distress at this time. HEENT:? Normocephalic, atraumatic, extraocular muscles intact, oral pharynx is clear and mucous membranes are moist. Neck: supple and symmetric, trachea is midline, no cervical adenopathy. Negative for JVD Chest:? Normal AP diameter and contour without kyphoscoliosis, no tachypnea, equal chest rise bilaterally. Lungs:? CTA b/l no wheezing rhonchi or rales. Cardio:?RRR no m/r/g. Abdomen: S NT ND. Musculoskeletal:? Muscle strength and tone are equal within normal limits, no deformity. Extremities: No edema or joint effusions. No cyanosis or clubbing. Skin:? Pale,? Warm to touch,dry and intact without rashes, ulcerations or petechiae.? Neuro:? Alert and orientated to person and place and month, unable to state year. Slight confusion.? sensation to touch intact in all extremities, no gross deficits noted of cranial nerves. Left facial droop at rest and slight facial asymmetry when smiling. Psych:? Patient has a well-kept appearance, appropriate affect, mental status attitude thought context and judgment are appropriate for age. Objective Labs Result Diagrams: 04/04/22 09:25 04/04/22 09:25 Labs: Laboratory Results - last 24 hr 04/04/22 04/04/22 04/04/22 09:25 09:25 09:25 WBC 5.0 RBC 4.69 Hgb 13.9 Hct 41.5 MCV 88.5 MCH 29.6 MCHC 33.5 RDW 14.3 Plt Count 205 Neut % (Auto) 67.0 Lymph % (Auto) 17.6 L [place] % (Auto) 13.4 Eos % (Auto) 1.2 L Baso % (Auto) 0.8 Neut # (Auto) 3300 Lymph # (Auto) 900 L [place] # (Auto) 700 Eos # (Auto) 100 Baso # (Auto) 0 Sodium 136 L Potassium 4.2 Chloride 108 H Carbon Dioxide 24 BUN 31 H Creatinine 1.13 Estimated GFR > 60 BUN/Creatinine Ratio 27.4 H Glucose 128 H Calcium 8.4 Total Bilirubin 0.5 AST 33 ALT 24 Alkaline Phosphatase 64 Total Creatine Kinase 137 CK-MB (CK-2) 3.43 H CK-MB (CK-2) Rel Index 2.5 Troponin I < 0.012 Total Protein 6.9 Albumin 3.8 Globulin 3.1 Albumin/Globulin Ratio 1.2 Lipase 55 Prolactin 49.4 H Ethyl Alcohol < 10 SARS-CoV-2 (PCR) 04/04/22 09:25 WBC RBC Hgb Hct MCV MCH MCHC RDW Plt Count Neut % (Auto) Lymph % (Auto) [place] % (Auto) Eos % (Auto) Baso % (Auto) Neut # (Auto) Lymph # (Auto) [place] # (Auto) Eos # (Auto) Baso # (Auto) Sodium Potassium Chloride Carbon Dioxide BUN Creatinine Estimated GFR BUN/Creatinine Ratio Glucose Calcium Total Bilirubin AST ALT Alkaline Phosphatase Total Creatine Kinase CK-MB (CK-2) CK-MB (CK-2) Rel Index Troponin I Total Protein Albumin Globulin Albumin/Globulin Ratio Lipase Prolactin Ethyl Alcohol SARS-CoV-2 (PCR) Negative Assessment & Plan Assessment & Plan narrative: Jaron Zayas is an 83-year-old male with a past medical history significant for HTN, HLD, prior syncope, short-term memory impairment, who was brought in by EMS after he was found by his unresponsive in a chair. Admitted with a subacute CVA. 1. R sebastian radiata CVA - seems to be improving from the ER. NIHSS 8 in ER, now improved to 1 with L facial droop only - MRI confirms subacute infarct in R sebastian radiata - PT/OT/Speech ordered - continue asa only given NIHSS >5, start lipitor 80 - TSH, A1c, Lipids in the AM - Prior TTE without evidence of a PFO. 2. Syncope - history is concerning for possible cardiac syncope, as he has prior episodes that were unexplained at that time as well. - continue telemetry - recheck echocardiogram - if nothing found, would recommend outpatient holter monitoring. - Prolactin was elevated, possible seizure in the setting of CVA but he also has a prior history of elevated prolactin. MRI without evidence of a pituitary mass. 3. HTN - will allow for permissive HTN for first 24 hours. - restart losartan and metoprolol in the AM 4. HLD rosuvastatin 10 replaced here with lipitor 80 mg for high intesity dosing in setting of acute CVA. Code: Full, surrogate decision maker is the patient's DVT: Lovenox daily Dispo: Admitted under inpatient status as his stay is expected to exceed 2 midnights I have utilized all available immediate resources to obtain, update, or review the patient's current medications. COVID-19 COVID-19 status: Negative Time Spent With Patient Critical Care time: I spent a total of [] minutes of critical care time on this patient's care today; this time is exclusive of procedural time. Scores NIHSS Level of Conciousness: Alert, keenly responsive Ask month/age: Answers both questions correctly. Open/close eyes, close hand: Performs both tasks correctly Best gaze horizontal: Normal Visual layton: No visual loss Facial palsy: Minor paralysis, flattened nasolabial fold, asymmetry on smiling Left arm drift: No drift for full 10 sec Right arm drift: No drift for full 10 sec Left leg drift: No drift for full 5 sec Right leg drift: No drift for full 5 sec Limb ataxia: Absent Sensory on face/arms/legs: Normal, no sensory loss Best language: No aphasia, normal Dysarthria: Normal Extinction or inattention: No abnormality Total NIH Stroke scale score: 1 Quality VTE Deep Vein Thrombosis/Pulmonary Embolism Present on Admission: No MIPS - Admit I confirm the patient?s Advance Care Plan is present, Code status is documented, Surrogate decision maker is in patient?s record [If Yes, STOP here]: Yes
--- NOTE | 2022-04-04 14:38 | DI.ECHO.S_ITS ---
[facility]---------+ [facility] +---------+ : : [address] [place] : : : : [id number] : : : : Phone: [phone]+ Echocardiogram Report + + :Name: LOGAN LYNN Study Date: 04/05/2022 Height: 68 in : :[facility] Reading[facility]: Weight: 165 lb : : Gender: Male BSA: 1.9 m2 : :: 1935 Age: 86 yrs BP: 188/89 mmHg: :Reason For Study: CVA, POSSIBLE CARDIAC SYNCOPE : :Ordering Physician: FENG, : :INGRID ADEN Performed By: Amira Khan : :Referring: INGRID TONEY : + + Interpretation Summary Normal sinus rhythm with wide QRS complexes. Normal LV size with mild left ventricular hypertrophy. Ejection fraction is 50-55%. There is mild dyssynchronous contraction pattern consistent with conduction system abnormality. Mild left atrial enlargement. Otherwise normal chamber sizes. No significant valvular abnormalities. Estimated PA systolic pressure is 35 mmHg assuming right atrial pressure of 3 mmHg. Compared to prior study June 13, 2019 no changes have occurred. Procedure: A two-dimensional transthoracic echocardiogram with color flow and Doppler was performed. The study quality was technically adequate. Comparison is made with the echocardiogram of 06/13/2019. The patient was in sinus rhythm with heart rates between 58-62 bpm during the exam. Left Ventricle: The left ventricle is normal in size. Left ventricular wall thickness is mildly increased. The ejection fraction is estimated to be 50- 55%. There is a mild dyssynchronous contraction pattern, consistent with a conduction abnormality. Right Ventricle: The right ventricle is mildly dilated. The right ventricular systolic function is normal. Atria: The left atrium is mildly dilated. The right atrium is mildly dilated. There is no Doppler evidence for an interatrial shunt. Mitral Valve: The mitral valve is normal in structure and function. There is mild mitral regurgitation. Aortic Valve: The aortic valve is trileaflet. The aortic valve opens well. There is no aortic valve stenosis. No aortic regurgitation is present. Tricuspid Valve: The tricuspid valve is normal in structure and function. There is mild tricuspid regurgitation. The right ventricular systolic pressure is estimated to be at least 35 mmHg based on an estimated right atrial pressure of 3 mm Hg. Pulmonic Valve: The pulmonic valve leaflets are thin and pliable; valve motion is normal. There is no pulmonic valvular regurgitation. Great Vessels: The aortic root is normal size. The ascending aorta could not be visualized. The IVC is of normal diameter and collapses greater than 50% with a sniff. This suggests a low right atrial pressure of 3 mm Hg. Pericardium/ Pleura There is no pericardial effusion. There is no pleural effusion. MMode/2D Measurements & Calculations LVIDd: 3.6 cm LVOT diam: 2.0 cm LVIDs: 2.3 cm Ao root diam: 3.5 cm FS: 35.9 % Ao Arch Diam (Prox Trans): 3.2 cm IVSd: 1.1 cm LVPWd: 1.1 cm LV harp. diameter/BSA (cm/m^2): 1.9 LV sys. diameter/BSA (cm/m^2): 1.2 LA A2 area: 17.9 cm2 RA long axis: 5.6 cm LA A4 area: 29.7 cm2 RA area: 21.8 cm2 LA length (vol): 6.8 cm RA vol: 72.3 ml LA vol: 66.6 ml RA : 38.4 ml/m2 LA vol index: 35.4 ml/m2 IVC diam: 1.5 cm RVD1 (basal): 4.4 cm RVD2 (mid): 4.3 cm TAPSE: 2.0 cm Doppler Measurements & Calculations Ao V2 max: 134.5 cm/sec LVOT Max Silverio: 99.9 cm/sec Ao V2 mean: 92.2 cm/sec LV V1 max P.0 mmHg Ao max P.2 mmHg LV V1 VTI: 25.1 cm Ao mean P.8 mmHg DENISE(I,D): 2.6 cm2 Ao V2 VTI: 30.2 cm DENISE(V,D): 2.3 cm2 sev ratio: 0.83 DENISE indexed to BSA (cm^2/m^2): 1.4 MV E max silverio: 48.8 cm/sec TR max silverio: 283.6 cm/sec MV A max silverio: 98.0 cm/sec TR max P.2 mmHg MV E/A: 0.50 PA V2 max: 89.1 cm/sec Med Peak E' Silverio: 3.3 cm/sec PA V2 mean: 63.2 cm/sec E/E' med: 14.6 PA mean P.8 mmHg Lat Peak E' Silverio: 5.6 cm/sec PA pr(Accel): 41.3 mmHg E/E' lat: 8.7 E/e' average: 11.6 MV dec time: 0.26 sec SV(OT): 79.1 ml Electronically signed by: Autumn Rivera M.D. on [address] Physician:04/05/2022 12:53 PM
--- NOTE | 2022-04-04 15:06 | ST.IPIE ---
Visit Care Team Role Provider Type Shyanne Green MD Primary Care Provider Non-Staff Specialty: Internal Medicine Address: [address] [place] [address], [id number] Email: Haris Salazar DO Emergency Provider Physician Referring Provider Specialty: Emergency Medicine Address: [address] [place] [address], [id number] Email: [email or web address] [email or web address] DO Admit Provider Physician Attending Provider Specialty: Internal Medicine Address: [address] [place] [address], [address] Email: [email or web address] Past Medical History (Last Reviewed 04/04/22 @ 14:44 by Raghu Tyson DO) BPH (benign prostatic hyperplasia) (Medical) Elevated cholesterol (Medical) H/O cataract removal with insertion of prosthetic lens (Medical) History of right inguinal hernia repair (Medical) History of right inguinal hernia repair (Medical) Hypertension (Medical) Left inguinal hernia (Medical) Local reaction to bee sting (Medical) Memory deficit (Medical) ST IP Initial Evaluation Report ANIMAL CARE WORKER Adult Cognitive Linguistic Eval Start: 04/04/22 14:46 Freq: Status: Active Protocol: Document 04/04/22 14:46 MARIA ALEJANDRA (Rec: 04/04/22 15:06 MARIA ALEJANDRA [id number]) Adult Cognitive Linguistic Evaluation Session Time Visit Start Time 14:00 Visit Stop Time 14:30 Total Visit Minutes 30 Setting Assessment Location Acute Care Visit Type Note Type Initial evaluation Next Note Type Next Note Type Treatment Note Patient Information Identification Type Name,Wristband Patient History Per H&P: Jaron Zayas is an 83- year-old male with a past medical history significant for CAD based on recent CTA, HTN, HLD, prior syncope, short -term memory impairment, probable BPH, and probable MARSHALL not on CPAP who was brought in by EMS after he was found by his unresponsive in a chair. Patient had walked his dog this morning, and the next thing he remembers is waking up in the hospital. He has no recollection of events . is not available at bedside at this time for review, but according to the ER provider he was found in the chair slumped over, she called EMS and he had truncal support at the time. They thought they noticed a right- sided weakness which had resolved fairly quickly. He was slightly confused in the emergency room according to the ER provider but had no complaints. He did note a facial droop on the left. MRI of his brain has already been performed and did show a subacute infarct in the right sebastian radiata. Language(s) Spoken in the Home French Education Level Master's degree Hearing Hearing Level Normal Subjective Patient Report Pt was seated upright in bed when ANIMAL CARE WORKER arrived. He agreed to participate in swallow screen and cognitive assessment. Assessment Oral Motor Examination Completed Yes Results Mild-moderate left droop noted in lips. Pt's features were symmetrical at rest, though left lip exhibited reduced strength and ROM in motion. He demonstrated tongue strength and ROM WNL, maintained a labial seal appropriately, and exhibited symmetrical jaw movements. Dentition was WNL and pt presented with speech sound production WNL. Structure and function of oral mechanism appears WFL for the purposes of speech and swallowing despite left labial weakness. Pt swallowed thin water through a straw cup with no overt signs or symptoms of aspiration and reported no difficulty with chewing or swallowing. Formal Assessment Standardized Test/Screener Type Cognitive Linguistic Quick Test (CLQT) Administration Complete Results Results of the CLQT place Uli 's score at 12/30, which falls within the dementia range. Difficulty with orientation questions, pt was oriented to his name, but not his age, location, or time. Pt exhibited significant difficulty with word recall, with immediate recall of 2/5 items and delayed recall of 1/ 5 items. Difficulty observed with orienting numbers in clock drawing and recall of instructions as well. However, pt answered 3/4 questions about a short story correctly. Per Dr. Tyson, pt has baseline cognitive deficits of an unknown level. Recommend speech therapy to provide cognitive supports as needed to return pt to baseline cognitive status. Findings/Results Cognitive Function Moderately-severely impaired Prognosis Prognosis Fair Based on Cognitive status,Comorbidities ,Duration of symptoms/severity ,Time since onset Plan of Care Speech-Language Treatment Yes Patient/Caregiver Education Described results of evaluation,Patient expressed understanding of evaluation, Patient expressed agreement with goals and treatment plans ,Patient requires further education/training [facility] Goals Pt will demonstrate cognitive skills and understanding of cognition and stroke to participate in medical decision making as consistent with his cognitive baseline.
--- NOTE | 2022-04-04 15:45 | PT.IIE ---
Medical History (Last Reviewed 04/04/22 @ 14:44 by Raghu Tyson DO) BPH (benign prostatic hyperplasia) Elevated cholesterol Hypertension Left inguinal hernia Local reaction to bee sting Memory deficit Physical Therapy Inpatient Evaluation/Re-Eval M1 PT/OT-IP Prior Functional Status Start: 04/04/22 16:53 Freq: NEEDED Status: Active Protocol: Document 04/04/22 15:45 AB (Rec: 04/04/22 17:09 [facility] Medical Review Prior Functional Status Medical History Reviewed Yes Communication able to make needs known Mobility and Gait pt tated that he is independent with all mobilities and ambulation without AD; has h/o falls with 3 falls for the year already Social History Household Members spouse Living Arrangements House Number of Floors (Floors) One Floor Number of Stairs To Enter/Railing? 3 steps R rail ascending Home Environment Standard Height Toilet,Walk in Shower Home Equipment Front Wheel Walker,Manual Wheelchair,Shower Seat with Backrest,Hand Held Shower,Grab Bars Near Toilet,Grab Bars In Shower Additional Social History Comment pt stated that spouse is recovering from a stroke : ~ 6 month already M2 PT-IP Current Condition Start: 04/04/22 16:53 Freq: NEEDED Status: Active Protocol: Document 04/04/22 15:45 AB (Rec: 04/04/22 17:09 [facility] Physical Therapy Current Condition Current Condition Evaluation Date 04/04/22 Treatment Diagnosis CVA; difficulty in walking Onset Date 04/04/22 M3 PT-IP Subjective Start: 04/04/22 16:53 Freq: NEEDED Status: Active Protocol: Document 04/04/22 15:45 AB (Rec: 04/04/22 17:09 [facility] Subjective Physical Therapy Visit Type Type Initial Evaluation Visit Start Time 15:45 Visit Stop Time 16:23 Total Visit Minutes 38 Number of BIOLOGICAL LAB TECHNICIAN Visits 0 Physical Therapy Visit Comments Patient Comments agreeable to do PT M4 PT-IP Mobility and Gait Start: 04/04/22 16:53 Freq: NEEDED Status: Active Protocol: Document 04/04/22 15:45 AB (Rec: 04/04/22 17:09 [facility] PT-Bed Mobility Assessment Supine to Sit Supine to Sit Standby Assistance PT-Transfer Assessment Sit to and From Stand Sit to and from Stand Contact Guard Assistance, Minimal Assistance,1 Person Assistance,Use of Upper Extremities Equipment Transfer Assistive Device None,Gait Belt Orthotic/Prosthetic Devices or Brace: No Transfers Transfer Destination Chair Transfer Technique ambulated Transfer Ability Level of Assist Contact Guard Assistance,1 Person Assistance,Use of Upper Extremities Comments Mobility Comments BP in supine: 172/89. completed supine to sit SBA. able to sit on EOB SBA. pt needs to be changed and assisted with hygiene care and brief change. completed sit to stand x 2 attempts with first attempt with LOB postiorly and pt having to sit back on EOB. completed again CGA to min A. pt able to stand without support CGA while assisted with toileting needs. also noted: forward head posture, increase LLE ER and with tendency to cross midline during ambulation. educated pt on sit to stand techniques. completed sit to stand x 5 reps with pt requiring max cues for techniques and safety. pt continues to have increase posterior LOB with initial standing. pt ambulated in room ~ 30 ft without AD CGA. presents with shuffling gait and increase RLE ER with increase crossing over midline . pt sat on chair. educated pt on safety. pt stated that he had at least 3 falls already this year. pt agreed to use FWW. completed ambulation using FWW CGA with increase steadiness compared to without AD and with increase BLE elevation. pt agreed to sit on the chair. positioned on the chair. call light and table placed within reach. Gait Assessment Gait Gait Assistance Required: Contact Guard Assist Distance (Feet) 30 Able to Maintain Weight Bearing Status Yes During Gait Assistive Devices Assistive Device None,Gait Belt,Front Wheeled Walker Orthotic/Prosthetic Devices or Brace: No Gait Deviations General Gait Pattern Antalgic,Decreased Stride Length,Decreased Feet Clearance,Narrow Based Gait Factors Limiting Gait Function Factors Limiting Gait Function Decreased Activity Tolerance, Decreased Strength,Difficulty Following Directions,Limited Range of Motion,Poor Balance, Poor Safety Awareness PT-Balance Assessment Sitting Balance and Reactions Static Sitting Balance Ability Good Dynamic Sitting Balance Ability Fair Standing Balance and Reactions Static Standing Balance Ability Fair Dynamic Standing Balance Ability Fair Device Used without AD M5 PT-IP Objective Assessments Start: 04/04/22 16:53 Freq: NEEDED Status: Active Protocol: Document 04/04/22 15:45 AB (Rec: 04/04/22 17:09 AB [id number]) Orientation Orientation/Cognition Level of Alertness Alert Orientation Name,Place,Situation Language Function Ability No Deficits Noted Safety Awareness Decreased Safety Awareness Memory Description Short Term Impaired Gross Range of Motion Lower Extremity ROM Impairments presents with hip flexion tightness with knee extensor tightness Strength Lower Extremity Strength Assessment Within Functional Limits Sensation Assessment Sensation Gross Sensation WNL Muscle Tone Muscle Tone WNL Yes M6 PT-IP Treatment Start: 04/04/22 16:53 Freq: NEEDED Status: Active Protocol: Document 04/04/22 15:45 AB (Rec: 04/04/22 17:09 AB [id number]) Physical Therapy Treatment Education Education Provided Safety M7 PT-IP Assessment and Plan Start: 04/04/22 16:53 Freq: NEEDED Status: Active Protocol: Document 04/04/22 15:45 AB (Rec: 04/04/22 17:09 AB [id number]) PT Summary Assessment and Plan Potential Rehabilitation Potential Fair Status of Condition at Evaluation Evolving Summary Impairments Pain,ROM,Strength,Balance, Coordination,Sensation,Tone, Cognition,Bed Mobility, Transfers,Gait,Activity Tolerance Assessment Summary pt requiring CGA to min A with sit to stand and presents with LOB with initial standing posteriorly affecting steadiness and safety. pt lives with spouse but pt stated that spouse has been recovering from a CVA as well. pt wants to go home. d/c plan depending on progress but pt will need assistance at home. Goals Bed Mobility Goal Independent Transfer Goal Independent,Front Wheeled Walker Gait Goal Independent,Front Wheel Walker Gait Distance 200 Other Goals improve ambulation without AD 200 ft mod I up/down 3 steps R rail ascending SBA Days to Meet Goals 5 Frequency of Treatment Frequency Of Treatment Once a Day Treatment Plan Physical Therapy Treatment Plan Bed Mobility Training,Transfer Training,Gait Training, Therapeutic Exercise,Balance Retraining,Post Op Education, Discharge Planning,Hot or Cold Pack,Neuromuscular Re-ed, Coordination Retraining,Manual Therapy Precautions Other Precautions falls Recommendations To Nursing Amount of Assist Needed 1 Person Assist Discharge Recommendations PT Discharge Recommendations Home with 15/06 Assist Available,Home Health,SNF Rehab,Home vs SNF Transportation Needs at Discharge Private Vehicle,Wheelchair/ Cabulance
--- NOTE | 2022-04-04 17:36 | PC.NURSE ---
Pt is AxOx3 but forgetful. Pt is very stable but pt has tendency to lean back while walking or standing so he needs STA and bed alarm. Pt denies pain and eating well. Tele is on and sinus rhythm. Last Pt's NIH score in ED was 2. Pt is almost back to his baseline except he has very slight L side facial drooping. Otherwise, everything is back to normal. Pt may go home tomorrow evening.
[2022-04-04] MEDS: ATORVASTATIN 20 MG TABLET 80 MG PO (20:20)
[2022-04-05] VITALS (10 sets, daily range): BP systolic 158–188; BP diastolic 75–89; PULSE 60–84; RESP 14–18; TEMP 36.1–36.4; O2SAT 93–100
[2022-04-05 05:27] LABS: Add Manual Diff / Slide Review NO; Basophils Absolute Auto 0 /uL (0-100); Eosinophils Absolute Auto 100 /uL (0-450); Eosinophils Percent Auto 2.4 % (2-4); Hematocrit 40.8 % (41-53); Hemoglobin 13.8 g/dL (13.5-17.5); Lymphocytes Absolute Auto 1400 /uL (1100-4500); Lymphocytes Percent Auto 29.7 % (25-40); Mean Corpuscular HGB Conc 33.8 % (30-36); Mean Corpuscular Hemoglobin 29.8 PG (26-34); Mean Corpuscular Volume 88.2 fL (80-100); Monocytes Absolute Auto 800 /uL (0-900); Monocytes Percent Auto 16.8 % (3-14); Neutrophils Absolute Auto 2300 /uL (1500-7000); Neutrophils Percent Auto 50.1 % (50-75); Platelet Count 211 X10^3/uL (150-400); Red Blood Cell Count 4.63 X10^6/uL (4.5-5.9); Red Cell Distribution Width 14.3 % (11.6-14.8); White Blood Cell Count 4.6 X10^3/uL (4.5-11.0)
[2022-04-05 05:35] LABS: Alanine Aminotransferase 26 IU/L (<50); Albumin 3.8 g/dL (3.5-5.0); Albumin Globulin Ratio 1.3 (1.0-2.8); Alkaline Phosphatase 62 U/L (38-126); Aspartate Aminotransferase 35 IU/L (17-59); BUN Creatinine Ratio 23.8 (6-22); Bilirubin Total 0.5 mg/dL (0.2-1.3); Blood Urea Nitrogen 24 mg/dL (9-20); Calcium 8.5 mg/dL (8.4-10.2); Carbon Dioxide 26 mmol/L (22-32); Chloride 105 mmol/L (98-107); Estimated Glomerular Filt Rate > 60 mL/min (>60); Glucose 99 mg/dL (80-110); HEMOLYSIS < 15 (0-50); Magnesium 2.1 mg/dL (1.6-2.3); Potassium 3.9 mmol/L (3.4-5.1); Sodium 137 mmol/L (137-145); Total Protein 6.8 g/dL (6.3-8.2)
[2022-04-05] MEDS: METOPROLOL ER 25 MG TABLET PO (08:02)
[2022-04-05] MEDS: LOSARTAN 50 MG TABLET PO (08:02)
[2022-04-05] MEDS: ENOXAPARIN 40 MG/0.4 ML SYRINGE SUBCUT (08:02)
[2022-04-05] MEDS: ASPIRIN EC 81 MG TABLET PO (08:02)
--- NOTE | 2022-04-05 09:27 | PM.DS.1 ---
History of Present Illness History of Present Illness Chief complaint: Unresponsive Narrative: Per admitting provider: Jaron Zayas is an 83-year-old male with a past medical history significant for HTN, HLD, prior syncope, short-term memory impairment, who was brought in by EMS after he was found by his unresponsive in a chair.? Patient had walked his dog this morning, and the next thing he remembers is waking up in the hospital.? He has no recollection of events.? is not available at bedside at this time for review, but according to the ER provider he was found in the chair slumped over, she called EMS and he had truncal support at the time.? They thought they noticed a right-sided weakness which had resolved fairly quickly.? He was slightly confused in the emergency room according to the ER provider but had no complaints.? He did note a facial droop on the left. In the emergency room, the patient was hypertensive but the remainder of his vital signs were unremarkable.? Laboratory evaluation revealed an unremarkable CBC, chemistry panel was also unremarkable, alcohol level was negative, prolactin was slightly elevated at 49.4.? COVID-[address] testing [address] and CT angiogram of his head and neck were unremarkable, MRI of his brain has already been performed and did show a subacute infarct in the right sebastian radiata. Discharge Providers Provider Date of admission: 04/04/22 10:57 Discharge Date: 04/05/22 Primary care physician: Shyanne Green MD Consults: 04/04/22 12:53 Consult to Occupational Therapy Evaluate & Treat Comment: Physician Instructions: Evaluate and treat Consult to Physical Therapy Evaluate & Treat Comment: Physician Instructions: Evaluate and Treat Consult to Speech Therapy Evaluate & Treat Comment: Physician Instructions: Evaluate and treat 04/05/22 13:15 Consult to Home Health Routine Comment: Subacute CVA Reason For Exam: Set up HH RN/PT/MOLD SWABBER for discharge home Discharge provider: Jona Melton MD Summary Hospital Course Discharge Diagnosis: 1. Right sebastian radiata CVA 2. Syncope 3. HTN 4. HL Hospital Course: Mr. Zayas was found unresponsive. He had workup done which showed that he had a subacute infarct in his sebastian radiata. He improved with time. He was ordered for aspirin and for a high dose statin. ECHO showed no acute process. He worked with rehab and was offered possible rehab at skilled facility but he was clear he wanted to be discharged home, and was set up with home health. Exam Vital Signs (past 8 hours): Oxygen Delivery Method Room Air Oxygen Flow Rate 0 Narrative Exam Narrative: General: no acute distress PULM: clear bilaterally CV: regular rate and rhythm, no murmurs Neuro:? Alert and oriented with some confusion. sensation intact. cranial nerves intact. left facial droop. Objective Labs Result Diagrams: 04/05/22 05:15 04/05/22 05:15 [facility] Medical History BPH (benign prostatic hyperplasia) Elevated cholesterol Hypertension Left inguinal hernia 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 Brother No problems noted. Social History household members: spouse Smoking Status: Never smoker alcohol intake: current Discharge Plan Discharge Plan Patient Disposition: Home Health Service Provider Discharge Comment: Mr. Zayas was admitted after a stroke. He did well after a stroke. He is given a prescription for aspirin and atorvastatin to reduce the risk as much as possible for another stroke. He requested to go home and will be setup with home health. Discharge orders & Medications Prescriptions: New atorvastatin [Lipitor] 20 mg Tablet 80 mg PO BEDTIME Qty: 120 0RF aspirin 81 mg Tablet,Delayed Release (Dr/Ec) 81 mg PO DAILY Qty: 30 0RF Continued losartan 50 mg Tablet 50 mg PO BID 0RF amlodipine [Norvasc] 5 mg tablet 5 mg PO DAILY 0RF hydralazine 25 mg tablet 25 mg PO DAILY 0RF metoprolol succinate 25 mg tablet extended release 24 hr PO DAILY 0RF tamsulosin 0.4 mg capsule PO DAILY 0RF Discontinued rosuvastatin 10 mg tablet 10 mg PO BEDTIME 0RF Follow up/Referrals: Shyanne Green MD [Primary Care Provider] - Diet/Activity/Treatments Diet: Regular Discharge Data Primary Care Provider: Shyanne Green Attending Provider: Raghu Tyson VTE Deep Vein Thrombosis/Pulmonary Embolism Present on Admission: No
--- NOTE | 2022-04-05 09:30 | OT.IP.EVAL ---
Past Medical History (Last Reviewed 04/04/22 @ 14:44 by Raghu Tyson DO) BPH (benign prostatic hyperplasia) Elevated cholesterol H/O cataract removal with insertion of prosthetic lens History of right inguinal hernia repair History of right inguinal hernia repair Hypertension Left inguinal hernia Local reaction to bee sting Memory deficit Surgical History (Last Reviewed 04/04/22 @ 14:44 by Raghu Tyson DO) H/O cataract removal with insertion of prosthetic lens History of right inguinal hernia repair History of right inguinal hernia repair Occupational Therapy Inpatient Evaluation/Re-Eval M1 PT/OT-IP Prior Functional Status Start: 04/04/22 16:53 Freq: NEEDED Status: Active Protocol: Document 04/05/22 13:36 [facility] (Rec: 04/05/22 13:46 [facility] [id number]) Medical Review Prior Functional Status Medical History Reviewed Yes Communication able to make needs known Mobility and Gait pt tated that he is independent with all mobilities and ambulation without AD; has h/o falls with 3 falls for the year already Activities of Daily Living and IADL's Pt states that he is completely independent with all ADl's, IADL's , walk the dog and drives. Social History Household Members spouse Living Arrangements House Number of Stairs To Enter/Railing? 3 steps R rail ascending Home Environment Standard Height Toilet,Walk in Shower Home Equipment Front Wheel Walker,Manual Wheelchair,Shower Seat with Backrest,Hand Held Shower,Grab Bars Near Toilet,Grab Bars In Shower Additional Social History Comment pt stated that spouse is recovering from a stroke : ~ 6 month already M2 OT-IP Current Condition Start: 04/05/22 13:34 Freq: Status: Active Protocol: Document 04/05/22 13:36 [facility] (Rec: 04/05/22 13:46 [facility] [id number]) Occupational Therapy Current Condition Current Condition Evaluation Date 04/05/22 Treatment Diagnosis CVA Diagnosis Onset Date 04/04/22 M3 OT- IP Subjective and Pain Start: 04/05/22 13:34 Freq: Status: Active Protocol: Document 04/05/22 13:36 [facility] (Rec: 04/05/22 13:46 [facility] [id number]) OT- Subjective Occupational Therapy Visit Type Type Initial Evaluation Visit Start Time 09:30 Visit Stop Time 10:06 Total Visit Minutes 36 Occupational Therapy Visit Comments Patient Comments Pt wanting to go home and feel that he is capable for taking care of himself. Patient/Caregiver Goals TO go home. OT Pain Assessment Pain When Pain Assessed At Rest Pain Present Pain Present Denied Pain M4 OT- IP ADL's Start: 04/05/22 13:34 Freq: Status: Active Protocol: Document 04/05/22 13:36 [facility] (Rec: 04/05/22 13:46 [facility] [id number]) OT [id number] Comments OT Self-Feeding Comments NOt at meal fay. OT ADL-Grooming General Evaluation Grooming Ability Independent Areas Needing Assistance Retrieving/Set-up of Grooming Items OT ADL-Oral Care Comments Oral Care Comments Not performed OT ADL-Dressing General Eval Lower Body Dressing Ability Standby Assistance Comments OT Dressing Comments Pt able to stan/doff his socks . OT ADL-Toileting Comments OT Toileting Comments Not performed OT ADL-Bathing Comments OT Bathing Comments NOt performed. M5 OT- IP IADL's Start: 04/05/22 13:34 Freq: Status: Active Protocol: Document 04/05/22 13:36 [facility] (Rec: 04/05/22 13:46 [facility] [id number]) OT-Instrumental Activities of Daily Living Home Safety Awareness Awareness of Need for Assistance at Home Decreased Awareness Ability to Problem Solve Emergency Able to Problem Solve Situations Medication Management Medication Management Comments Pt has decreased short term memory and would be best to have someone assist pt for safety with all needs and for completeness. M6 OT- IP Functional Cognition Start: 04/05/22 13:34 Freq: Status: Active Protocol: Document 04/05/22 13:36 [facility] (Rec: 04/05/22 13:46 [facility] [id number]) Cognitive Factors Limiting Selfcare Function Cognitive Ability Level of Alertness Alert Patient Orientation Name Attention Span Ability Capable of Focused Attention, Capable of Sustained Attention Ability to Follow Commands Able to Follow One Step Commands Memory Description Short Term Impaired,Working Impaired Safety Awareness Underestimates Need for Assistance Problem Solving Ability Unable to Identify Errors, Needs Assist to Identify Solutions Executive Function Ability Unable to Make Plans,Unable to Organize Plans,Unable to Remember Details Cognitive Comments Cognitive Assessment Comments Pt not able to complete [place] [employer] as not able to recall the directions. Pt has severe impairments for visual attention, speed of processing, mental flexbility , task switching, and executive functioning and if going home would be best to have someone stay with him 24/ 7. OT- Vision and Hearing OT- Hearing Assessment OT- Hearing Assessment WFL OT- Vision Assessment Visual Acuity Glasses All The Time M7 OT- IP Mobility and Balance Start: 04/05/22 13:34 Freq: Status: Active Protocol: Document 04/05/22 13:36 [facility] (Rec: 04/05/22 13:46 [facility] [id number]) OT-Transfer Assessment Sit to and From Stand Sit to and from Stand Standby Assistance,Contact Guard Assistance Transfers Transfer Ability Standby Assistance,Contact Guard Assistance Technique Transfer Destination Bed,Chair Devices Transfer Assistive Devices None,Gait Belt,Front Wheeled Walker Comments Mobility Comments Pt a little unsteady on his feet and at times has a very narrow base of support and best to use a fww for now . In addition suggested pt no walk his dog as he is a high fall risk. OT- Balance Assessment Sitting Balance and Reactions Static Sitting Balance Ability Good Dynamic Sitting Balance Ability Fair Standing Balance and Reactions Static Standing Balance Ability Fair Dynamic Standing Balance Ability Poor Pt's daughter aware that pt has cognitive deficits and is really resistant to having assist. Pt's daughter states she puts his pills in the organizer and aware that he can not keep up with his finances. Pt has assist 3 days a week for 4 hours, but no one to be there 24/ to assist with needs. Per daughter her father is not has fecal incontinence as well. Pt noted to have mild left facial droop. Decreased for finger to nose with left hand LUE strength 4-/5 while RUE 4+/5. Pt would benefit from skilled rehab but refusing and insistent on going home. Therefore if pt going home would benefit from 24/7 assist as pt's has had a CVA and not able to provide assist for the pt. Pt is a MOD complexity and main barriers are steps,, balance, decreased executive cognitive needs and would be best to do SNF .
--- NOTE | 2022-04-05 11:03 | PT.IPTN ---
Physical Therapy Treatment Note M2 PT-IP Current Condition Start: 04/04/22 16:53 Freq: NEEDED Status: Active Protocol: Document 04/04/22 15:45 AB (Rec: 04/04/22 17:09 AB [id number]) Physical Therapy Current Condition Current Condition Evaluation Date 04/04/22 Treatment Diagnosis CVA; difficulty in walking Onset Date 04/04/22 M3 PT-IP Subjective Start: 04/04/22 16:53 Freq: NEEDED Status: Active Protocol: Document 04/05/22 10:43 KS (Rec: 04/05/22 11:21 KS [id number]) Subjective Physical Therapy Visit Type Type Treatment Note Visit Start Time 10:43 Visit Stop Time 11:03 Total Visit Minutes 20 Number of [employer] Visits 1 Physical Therapy Visit Comments Patient Comments agreeable to do PT M4 PT-IP Mobility and Gait Start: 04/04/22 16:53 Freq: NEEDED Status: Active Protocol: Document 04/05/22 10:43 KS (Rec: 04/05/22 11:21 KS [id number]) PT-Transfer Assessment Sit to and From Stand Sit to and from Stand Contact Guard Assistance,1 Person Assistance,Use of Upper Extremities Equipment Transfer Assistive Device Gait Belt,Front Wheeled Walker Orthotic/Prosthetic Devices or Brace: No Transfers Transfer Destination Chair,Wheelchair Transfer Technique Pt ambulated w/ FWW Transfer Ability Level of Assist Contact Guard Assistance,1 Person Assistance,Use of Upper Extremities Comments Mobility Comments Pt in chair upon arrival and agreeable to complete stair training. CGA for sit<>stand w / FWW. Pt ambulated to w/c in hallway for transportation to practice stairs for energy conservation. Pt then ascended /descended 3 steps w/ SBA step over step pattern L rail and cues to avoid using other rail since he just has one at home . Pt then ambulated entire distance from stairs back to room w/ FWW ~220 ft CGA w/ w/c follow but no LOB or c/o fatigue. Pt required occasional cue sto keep FWW close to his body and has very narrow gait w/ decreased stride and foot clerance increasing risk of falls. Pt agreeable to use FWW at home. Pt returned to room and left in chair w/ alarm on and all needs in reach. Gait Assessment Gait Gait Assistance Required: Standby Assistance,Contact Guard Assist,1 Person Assist Distance (Feet) 220 Able to Maintain Weight Bearing Status Yes During Gait Assistive Devices Assistive Device Gait Belt,Front Wheeled Walker Orthotic/Prosthetic Devices or Brace: No Gait Deviations General Gait Pattern Antalgic,Decreased Stride Length,Decreased Feet Clearance,Narrow Based Gait Factors Limiting Gait Function Factors Limiting Gait Function Decreased Activity Tolerance, Decreased Strength,Difficulty Following Directions,Limited Range of Motion,Poor Balance, Poor Safety Awareness Comments Gait Comments Please refer to mobility section for details. Stair Climbing Assessment Evaluation Level of Assist On Stairs Standby Assistance Devices Stair Climbing Assistive Devices Left Railing Technique/Endurance Stair Climbing Direction Ascend and Descend Stair Climbing Technique Step Over Step Number of Steps Climbed 3 Stair Climbing Set # Repetitions (reps) 1 Comments Stair Climbing Comments Pt ascended/descended 3 steps w/ step over step pattern and L hand rails SBA and cues to avoid use of R hand rail. Pt states he has not had trouble w/ stairs at home in the past. PT-Balance Assessment Sitting Balance and Reactions Static Sitting Balance Ability Good Dynamic Sitting Balance Ability Fair Standing Balance and Reactions Static Standing Balance Ability Good Dynamic Standing Balance Ability Fair Device Used FWW M5 PT-IP Objective Assessments Start: 04/04/22 16:53 Freq: NEEDED Status: Active Protocol: Document 04/04/22 15:45 AB (Rec: 04/04/22 17:09 AB [id number]) Orientation Orientation/Cognition Level of Alertness Alert Orientation Name,Place,Situation Language Function Ability No Deficits Noted Safety Awareness Decreased Safety Awareness Memory Description Short Term Impaired Gross Range of Motion Lower Extremity ROM Impairments presents with hip flexion tightness with knee extensor tightness Strength Lower Extremity Strength Assessment Within Functional Limits Sensation Assessment Sensation Gross Sensation WNL Muscle Tone Muscle Tone WNL Yes M6 PT-IP Treatment Start: 04/04/22 16:53 Freq: NEEDED Status: Active Protocol: Document 04/05/22 10:43 KS (Rec: 04/05/22 11:21 KS [id number]) Physical Therapy Treatment Education Education Provided Safety Other Treatments Other Treatment Performed Discussed safety and use of FWW at home, pt agreeable to using FWW during ambulation at home. Discussed HHPT to improve balance and stability, pt not interested at this time. M7 PT-IP Assessment and Plan Start: 04/04/22 16:53 Freq: NEEDED Status: Active Protocol: Document 04/05/22 10:43 KS (Rec: 04/05/22 11:21 KS [id number]) PT Summary Assessment and Plan Potential Rehabilitation Potential Fair Status of Condition at Evaluation Evolving Summary Impairments Pain,ROM,Strength,Balance, Coordination,Sensation,Tone, Cognition,Bed Mobility, Transfers,Gait,Activity Tolerance Assessment Summary Pt CGA for transfers and SBA to CGA for ambulation and stairs. Ambulated 220 ft and ascended/descended 3 steps w/ cues. Required cues for safe FWW use when ambulating. Pt w/ increased fall risk due to very narrow based gait and decreased stride and foot clearance. Agreeable to using FWW at home. If pt goes home, he will need increased assistance as in unable to provide assistance at this time. Goals Bed Mobility Goal Independent Transfer Goal Independent,Front Wheeled Walker Gait Goal Independent,Front Wheel Walker Gait Distance 200 Other Goals improve ambulation without AD 200 ft mod I up/down 3 steps R rail ascending SBA Days to Meet Goals 5 Frequency of Treatment Frequency Of Treatment Once a Day Treatment Plan Physical Therapy Treatment Plan Bed Mobility Training,Transfer Training,Gait Training, Therapeutic Exercise,Balance Retraining,Post Op Education, Discharge Planning,Hot or Cold Pack,Neuromuscular Re-ed, Coordination Retraining,Manual Therapy Precautions Other Precautions falls Recommendations To Nursing Amount of Assist Needed 1 Person Assist Discharge Recommendations PT Discharge Recommendations Home with 15/06 Assist Available,Home Health,SNF Rehab,Home vs SNF Transportation Needs at Discharge Private Vehicle,Wheelchair/ Cabulance
--- NOTE | 2022-04-05 12:05 | CM.DPNOTE ---
Faxed referral packet to [facility] per Chana and received fax conf. Donna Stevenson CM Assist.
--- NOTE | 2022-04-05 12:55 | CM.DANOTE ---
Addendum entered by SUSANA Vicente 04/05/22 16:29: ADD: SW met with spouse and Dtr at the hospital and discussed at length pt's LTC needs and strongly encouraged them to begin calling Memory Care facilities and increasing their [facility] hours. Family is very agreeable to this and Dtr is aware of the LTC facility costs and feels they can afford this and will begin calling facilities on Mon. They plan to increase CG hours but historically this can take up to a week sometimes. They are still agreeable to [facility]. Initially family was hopeful pt could remain a few days at the hospital but SW discussed pt medically stable and could not remain the 4 days they were hoping and SNFs currently do not have staff to accept tomorrow Sun. Family plans to transport pt home today with new [facility] and increased CG hours and will begin finding a LTC facility and now realize not to ask pt but to set up and begin due to pt's dementia and resistance. BF Original Note: Patient is an 86 yo male who was admitted on 04/04/22 for Unresponsive. Pt has [facility] and [employer] for insurance and his PCP is Alea Green. EMR was reviewed. Per MD, pt with hx of mild dementia and admitted for Subacute CVA. Per ST, completed Cog Linguistic Quick test and pt scored 12/30 in the dementia range. Per PT/OT, pt mostly SBA to CGA with FWW for ambulation but impulsive and high fall risk and recommending possible SNF vs home with HH and 24/7. OT spoke to pt's Dtr Barb and updated on recommendations and Dtr confirms family cannot currently provide 24/7 to pt at home but will talk to pt's spouse as well. SW met bedside with pt and explained role and pt confirms he still lives at home with his spouse who continues to recover from her own CVA about a year ago and still has left sided weakness, inability to use left side. Pt confirms they still have [facility] CGs at home but cannot state how many days or hours a week they provide care. Pt confirms he wants to d/c home and declines any Inpt rehab or SNF. Pt unsure how he might transport home when discharged and agreeable with SW calling his Dtr Barb. SW called dtr Saskia ( lives in [place]) and she confirms Patient and spouse have three adult children. Patient has mild cognitive impairment at base (according to dtr) and still drives although his drivers license how now been revoked but pt refuses to give up car keys and does the shopping for he and spouse. Spouse Gisela had a stroke approx one year ago, recovered at a SNF for 10 months and then lived w/their oldest son (in [place]) for 3 months before returning home w/patient in January 2021. Patient /spouse have in home cgs assist 3 times a week for 4 hours daily from [facility]. Patient/spouse are visited by their adult children at least 1-2x weekly, dtr in [place], son in [place] and youngest son in [place]. None available to stay or live w/their parents. Dtr states she is aware that there are safety concerns with pt and spouse living at home but states that they have been trying to get documentation that pt not safe to make his own decisions anymore because he continues to refuse to increase PP CG hours or move into RETIREMENT. Dtr aware that pt's needs are more LTC/safety issues rather than Rehab needs. Dtr moving her work office this morning but states she will arrive bedside this afternoon and could be available to transport pt home and has alerted pt's spouse that recommendation is 24 and Dtr aware pt likely medically stable to d/c today. Dtr and pt agreeable with HH and [facility] has the soonest availability for [place] and [facility] faxed referral and SW faxed F2F and MD orders and no d/c summary yet. SW updated MD and RN. Plan: to follow closely for likely pt d/c home via Dtr POV this afternoon if remains medically stable and new [facility] to follow after d/c. SUSANA Vicente Discharge Planning/Care Management CM Discharge Assessment Start: 04/05/22 12:51 Freq: Status: Active Protocol: Document 04/05/22 12:51 BF (Rec: 04/05/22 12:55 BF [id number]) Discharge Planning Assessment Assigned Cigarette Machine Operator SUSANA Zayas DPOA/Assigned Designee Name Spouse Gisela and Dtr Barb Advance Directives? Yes Advance Directives on File No History Provided By Patient,Family Member,Medical Record Has Patient been admitted in last 30 No days? Comment last admit in April 2021 last year for similar CVA went PP to [facility] Prior Living Arrangements House Household Members spouse Type of transporation used prior to Drives own vehicle admit Comment But has license revoked but pt continues to drive in town Independent with ADL's Yes: somewhat Is patient alert and oriented? No: 11/21 on cog assess Needs Assistance With Bathing,Meal Prep,Managing Medications,Home Chores / Shopping Caregiver for Another Yes: spouse also at home, hx of CVA herself DME Already Rented / Owned FWW / Walker Patient/Family Preference Home with Home Health Comment Lives w/spouse who is recovering from stroke, memory issues Discharge Plan Home with Home Health Transportation Arrangement Likely Dtr this afternoon Referrals Initiated Home Health If patient plan is home with home health Yes : Has signed face to face form been completed? Medicare Choice List Provided Yes SNF/HH Preference [facility] Whiteboard Updated in Patient Room with Yes name and ext. # of Cigarette Machine Operator Review Status In Process Please Provide Date Initial DC 04/05/22 Assessment Was Performed Next Review Type Continued Stay Review
== END 2022-04-05 17:02 | disposition home health service (06) ==
LOC: ED 10:47 → AC 10:57
PROVIDERS: Admitting Provider Internal Medicine; Emergency Provider Emergency Medicine; PCP Internal Medicine; Referring Provider Emergency Medicine; Visit Provider Internal Medicine
DX: I63.89 Other cerebral infarction (principal); R09.02 Hypoxemia; R29.810 Facial weakness; R29.708 NIHSS score 8; I10 Essential (primary) hypertension; E78.5 Hyperlipidemia, unspecified; Z20.822 Contact with and (suspected) exposure to COVID-19
CPT/HCPCS: 36415; 70450; 70496; 70498; 70551; 80053; 80320; 82550; 82553; 83690; 83735; 84146; 84484; 85025; 87635; 93005; 93306; 94760; 96125; 96372; 97116; 97162; 97166; 97530; 99285; C9803; G0378; J1650

== ENCOUNTER 2022-05-16 11:21 | Emergency (ER) | payer MEDICARE, OTHER, SELFPAY ==
[2022-04-04 10:59] VITALS: BMI 25.0
[2022-05-16] VITALS (13 sets, daily range): BP systolic 178–226; BP diastolic 84–99; PULSE 51–56; RESP 14–22; TEMP 36.4; O2SAT 93–99; BMI 27.3
--- NOTE | 2022-05-16 11:35 | ED.GENADULT ---
HPI - General Adult General Chief complaint: Neuro Symptoms/Deficit Stated complaint: Syncopal episode LOC Time Seen by Provider: 05/16/22 11:33 Source: patient and EMS Mode of arrival: EMS Limitations: other (Confusion) History of Present Illness HPI narrative: Patient is an 86-year-old male who was brought in by EMS after having was reported as a syncopal episode this morning. He has had prior history of syncope. Approximately 1 month ago he was also seen in this department by myself and diagnosed with an acute CVA. He was admitted to the hospital and subsequently discharged. Patient states that today he was walking across his living room and he states he apparently passed out. He reports no injury from the event. He denies chest pain, palpitations, headache, vision changes, fevers, shortness of breath, cough, abdominal pain, nausea vomiting, numbness and tingling in his extremities and no extremity pain. Patient was somewhat confused as to where he was. Related Data Home Medications Medication Instructions Recorded Confirmed losartan 50 mg tablet 50 mg PO BID 12/28/18 04/04/22 amlodipine 5 mg tablet (Norvasc) 5 mg PO DAILY 05/03/21 08/15/21 hydralazine 25 mg tablet 25 mg PO DAILY 04/04/22 04/04/22 metoprolol succinate 25 mg mg PO DAILY 04/04/22 tablet,extended release 24 hr tamsulosin 0.4 mg capsule mg PO DAILY 04/04/22 Previous Rx's Medication Instructions Recorded aspirin 81 mg tablet,delayed 81 mg PO DAILY #30 tabs 04/05/22 release atorvastatin 20 mg tablet (Lipitor) 80 mg PO BEDTIME #120 tabs 04/05/22 Allergies Allergy/AdvReac Type Severity Reaction Status Date / Time bee venom protein (honey bee) Allergy Verified 05/16/22 11:38 Review of Systems Review of Systems ROS Unobtainable: All systems reviewed & are unremarkable except as noted in HPI and below Patient History Medical History (Updated 05/16/22 @ 14:41 by Haris Salazar DO) BPH (benign prostatic hyperplasia) Elevated cholesterol Hypertension Left inguinal hernia 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 Brother No problems noted. Social History household members: spouse Smoking Status: Never smoker alcohol intake: current Smoking Status: Never smoker alcohol intake frequency: holidays/special occasions only Substance Use Type: does not use Exam Initial Vital Signs Initial Vital Signs: Vital Signs Pulse Rate 56 L 05/16/22 11:31 Respiratory Rate 17 05/16/22 11:31 Blood Pressure 189/99 H 05/16/22 11:31 Pulse Oximetry 96 05/16/22 11:31 Const General: cooperative, comfortable, well groomed and No ill appearing HENMT Head: normal to inspection and normocephalic Mouth: oral mucosae normal Eyes Pupils: PERRL Resp Effort & Inspection: normal respiratory effort Auscultation: clear to auscultation bilaterally Cardio Rate: regular rate Rhythm: regular rhythm GI Inspection: normal to inspection Palpation: soft and No tender Skin Other: Various abrasions on his lower extremities. No active bleeding. No signs of infection. Neuro General: patient alert, patient awake and moves all extremities Other: Patient knows his date, he knows he is in the hospital in does seem to know why he is here however he was unsure as to what hospital he was in. He thought that it was 2005 and not 2021. He does have left-sided facial droop however when he was discharged from the hospital when he was diagnosed with a CVA it was noted that he had a left-sided droop. He had no extremity weakness. Extrem General: capillary refill normal Psych Appearance: well kempt Scores GCS Jeffrey coma scale eye opening: Spontaneous [place] coma scale verbal response: Orientated [place] coma scale motor response: Obey commands Jeffrey coma scale total score: 15 NIH Stroke Scale Level of Conciousness: Alert, keenly responsive Ask month/age: Answers one question correctly, intubated follow commands Open/close eyes, close hand: Performs both tasks correctly Best gaze horizontal: Normal Visual layton: No visual loss Facial palsy: Minor paralysis, flattened nasolabial fold, asymmetry on smiling Left arm drift: No drift for full 10 sec Right arm drift: No drift for full 10 sec Left leg drift: No drift for full 5 sec Right leg drift: No drift for full 5 sec Limb ataxia: Absent Sensory on face/arms/legs: Normal, no sensory loss Best language: No aphasia, normal Dysarthria: Normal Extinction or inattention: No abnormality Total NIH Stroke scale score: 2 Course Orders Ordered: ED Orders 05/16/22 11:37 EKG-12 Lead Stat 05/16/22 11:45 Basic Metabolic Panel Stat Complete Blood Count AUTO DIFF Stat Lipase Stat Partial Thromboplastin Time Stat Prothrombin Time INR Stat Troponin & CK Cardiac Panel Stat 05/16/22 11:55 CT head/brain wo con Stat 05/16/22 14:06 Consult to [facility] - Physician Office Secretary Stat Vital Signs Vital signs: Vital Signs - 8 hr 05/16/22 11:33 05/16/22 11:31 05/16/22 11:35 Temperature 97.5 F L Pulse Rate 55 L 56 L Respiratory Rate 18 17 Blood Pressure 189/99 H 189/99 H 226/96 H Pulse Oximetry 99 96 Oxygen Delivery Method Nasal Cannula 05/16/22 12:04 05/16/22 12:29 05/16/22 12:29 Temperature Pulse Rate 54 L 53 L Respiratory Rate 18 Blood Pressure 203/91 H Pulse Oximetry 93 Oxygen Delivery Method 05/16/22 12:30 05/16/22 12:30 05/16/22 13:00 Temperature Pulse Rate 52 L Respiratory Rate 17 Blood Pressure 192/94 H 191/91 H Pulse Oximetry 95 Oxygen Delivery Method 05/16/22 13:00 05/16/22 13:02 05/16/22 13:02 Temperature Pulse Rate 51 L 52 L Respiratory Rate 14 17 Blood Pressure 187/89 H Pulse Oximetry 93 95 Oxygen Delivery Method 05/16/22 13:30 05/16/22 13:31 05/16/22 13:31 Temperature Pulse Rate 51 L 51 L Respiratory Rate 22 Blood Pressure 178/84 H Pulse Oximetry 95 95 Oxygen Delivery Method 05/16/22 13:53 05/16/22 13:53 05/16/22 14:00 Temperature Pulse Rate 53 L Respiratory Rate 16 Blood Pressure 193/93 H 190/92 H Pulse Oximetry 95 Oxygen Delivery Method 05/16/22 14:00 05/16/22 14:30 Temperature Pulse Rate 52 L 54 L Respiratory Rate 18 20 Blood Pressure Pulse Oximetry 96 94 Oxygen Delivery Method Room Air Medical Decision Making Medical Records Medical records reviewed: Yes I reviewed the patient's medical records. Lab Data Lab results reviewed: Yes I reviewed the patient's lab results. Result diagrams: 05/16/22 11:45 05/16/22 11:45 Labs: Lab Results 05/16/22 05/16/22 05/16/22 Range/Units 11:45 11:45 11:45 WBC 6.0 (4.5-11.0) X10^3/uL RBC 4.46 L (4.5-5.9) X10^6/uL Hgb 13.5 (13.5-17.5) g/dL Hct 40.2 L (41-53) % MCV 90.0 (80-100) fL MCH 30.3 (26-34) PG MCHC 33.7 (30-36) % RDW 14.0 (11.6-14.8) % Plt Count 228 (150-400) X10^3/uL Neut % (Auto) 57.1 (50-75) % Lymph % (Auto) 27.8 (25-40) % [place] % (Auto) 12.2 (3-14) % Eos % (Auto) 2.3 (2-4) % Baso % (Auto) 0.6 (0-2) % Neut # (Auto) 3400 (5135-6343) /uL Lymph # (Auto) 1700 (2639-6478) /uL [place] # (Auto) 700 (0-900) /uL Eos # (Auto) 100 (0-450) /uL Baso # (Auto) 0 (0-100) /uL PT 12.6 (10.1-12.7) SECONDS INR 1.1 (0.9-1.3) APTT 30 D (26.4-36.2) SECONDS Sodium 137 (137-145) mmol/L Potassium 5.2 H (3.4-5.1) mmol/L Chloride 108 H (98-107) mmol/L Carbon Dioxide 25 (22-32) mmol/L BUN 32 H (9-20) mg/dL Creatinine 1.18 (0.66-1.25) mg/dL Estimated GFR > 60 (>60) mL/min BUN/Creatinine Ratio 27.1 H (6-22) Glucose 95 (80-110) mg/dL Calcium 8.3 L (8.4-10.2) mg/dL Total Creatine Kinase 109 (55-170) U/L CK-MB (CK-2) 1.64 (<2.37) ng/mL CK-MB (CK-2) Rel Index 1.5 (1.5-5.0) % Troponin I < 0.012 (0.01-0.034) ng/mL Lipase 66 (23-300) U/L Point of Care Testing Glucose POC 81 Urine Dip Bedside Urine Glucose Negative Bedside Urine Bilirubin - Negative Bedside Urine Ketone - Negative Urine Specific [place] 1.015 Bedside Urine Occult Blood - Negative Bedside Urine pH 6.0 Bedside Urine Protein - Negative Bedside Urine Urobilinogen - Negative Bedside Urine Nitrite - Negative Bedside Urine Leukocytes - Negative Esterase Point of care testing: Point of Care Testing Glucose POC 81 Urine Dip Bedside Urine Glucose Negative Bedside Urine Bilirubin - Negative Bedside Urine Ketone - Negative Urine Specific [place] 1.015 Bedside Urine Occult Blood - Negative Bedside Urine pH 6.0 Bedside Urine Protein - Negative Bedside Urine Urobilinogen - Negative Bedside Urine Nitrite - Negative Bedside Urine Leukocytes - Negative Esterase Imaging Data CT scan - head: Radiologist's Impression: [place] [address] CT Scan Report Signed Patient: Jaron Zayas MR#: [id number] : 1935 Acct:[id number] Age/Sex: 86 / M Date of Service: 05/16/22 Loc: ED Accession Number: [id number] ?? Procedure: CT head/brain wo con Ordering Provider: Haris Salazar D.O. PROCEDURE:? CT HEAD/BRAIN WO CON ? INDICATIONS:? 86-year-old male with syncope and altered mental status ? TECHNIQUE:? Noncontrast 4.5 mm thick angled axial sections acquired from the foramen magnum to the vertex, with coronal and sagittal reformats.? For radiation dose reduction, the following was used:? automated exposure control, adjustment of mA and/or kV according to patient size.? ? COMPARISON:? [facility], CT, CT HEAD/BRAIN WO CON, 06/12/2019, 9:23. ? FINDINGS:? Image quality:? Excellent.? ? CSF spaces:? Basal cisterns are patent.? No extra-axial fluid collections.? Ventricles are normal in size and shape.? ? Brain:? No midline shift.? No intracranial masses or hemorrhage.? Luna-white matter interface is normal.? Moderate cerebral and cerebellar volume loss with multifocal white matter chronic ischemic change noted. Moderate calcified atherosclerotic plaque noted involving the cavernous portions of both internal carotid arteries.? Old lacunar infarcts noted in the left lentiform nucleus, left cerebellar dentate nucleus and right centrum semiovale white matter ? Skull and face:? Calvarium and visualized facial bones are intact, without suspicious lesions.? ? Sinuses:? Visualized sinuses and mastoids are clear.? ? IMPRESSION:? ? Atrophy and chronic ischemic change without intracranial hemorrhage or mass effect. ? Old lacunar infarcts, stable from the prior ? ? ? Approved by: Altaf Rodriguez M.D. on 05/16/2022 at 11:16? ECG Data Attestation: I personally reviewed and interpreted this ECG as follows: Interpretation: Sinus bradycardia Ventricular rate of 53 Left axis deviation Right bundle branch block QRS [address] T wave changes MDM Narrative Medical decision making narrative: The left-sided facial droop is not new. It was present when he was discharged from the hospital after his last CVA. His head CT is unremarkable. Also review of his medical record shows he has had syncopal episodes in the past. He does have a walker at home that he uses. He ambulated here in the emergency department without issue. Had a discussion with the patient and family at bedside. Family did inform me that they have been looking into a memory care facility for both this patient and his . They are concerned about his ability to take care of himself at home. I had a discussion with them regarding this. They were seen by social work as well. We did discuss admission to the hospital for observation versus discharge home in the patient and family were okay with discharge home. They were given strict return precautions. The expressed understanding and agreement. Discharge Plan Departure Patient Disposition: Home Clinical Impression: Syncope Instructions: DI for Syncope in Adults (Fainting), How to Prevent Falls Activity Restrictions/Additional Instructions: Continue all of your medications as directed. I do recommend that you see recently consider have discussions with you and your family about other living situations for you and your . It is important that you are safe and I feel that you are going to need more help than which you currently have. Contact your primary doctor for a follow-up. Return to the emergency department for any new or worsening symptoms. Prescriptions: No Action losartan 50 mg Tablet 50 mg PO BID amlodipine [Norvasc] 5 mg tablet 5 mg PO DAILY hydralazine 25 mg tablet 25 mg PO DAILY metoprolol succinate 25 mg tablet extended release 24 hr PO DAILY tamsulosin 0.4 mg capsule PO DAILY atorvastatin [Lipitor] 20 mg Tablet 80 mg PO BEDTIME Qty: 120 0RF aspirin 81 mg Tablet,Delayed Release (Dr/Ec) 81 mg PO DAILY Qty: 30 0RF Referrals: Shyanne Green MD [Primary Care Provider] - Visit Report Forms: Patient Portal/API
--- NOTE | 2022-05-16 11:55 | DI.CT.S_ITS ---
PROCEDURE: CT HEAD/BRAIN WO CON INDICATIONS: 86-year-old male with syncope and altered mental status TECHNIQUE: Noncontrast 4.5 mm thick angled axial sections acquired from the foramen magnum to the vertex, with coronal and sagittal reformats. For radiation dose reduction, the following was used: automated exposure control, adjustment of mA and/or kV according to patient size. COMPARISON: [facility], CT, CT HEAD/BRAIN WO CON, 06/12/2019, 9:23. FINDINGS: Image quality: Excellent. CSF spaces: Basal cisterns are patent. No extra-axial fluid collections. Ventricles are normal in size and shape. Brain: No midline shift. No intracranial masses or hemorrhage. Luna-white matter interface is normal. Moderate cerebral and cerebellar volume loss with multifocal white matter chronic ischemic change noted. Moderate calcified atherosclerotic plaque noted involving the cavernous portions of both internal carotid arteries. Old lacunar infarcts noted in the left lentiform nucleus, left cerebellar dentate nucleus and right centrum semiovale white matter Skull and face: Calvarium and visualized facial bones are intact, without suspicious lesions. Sinuses: Visualized sinuses and mastoids are clear. IMPRESSION: Atrophy and chronic ischemic change without intracranial hemorrhage or mass effect. Old lacunar infarcts, stable from the prior Approved by: Altaf Rodriguez M.D. on 05/16/2022 at 11:16
[2022-05-16 11:58] LABS: Add Manual Diff / Slide Review NO; Basophils Absolute Auto 0 /uL (0-100); Basophils Percent Auto 0.6 % (0-2); Eosinophils Absolute Auto 100 /uL (0-450); Eosinophils Percent Auto 2.3 % (2-4); Hematocrit 40.2 % (41-53); Hemoglobin 13.5 g/dL (13.5-17.5); Lymphocytes Absolute Auto 1700 /uL (1100-4500); Lymphocytes Percent Auto 27.8 % (25-40); Mean Corpuscular HGB Conc 33.7 % (30-36); Mean Corpuscular Hemoglobin 30.3 PG (26-34); Monocytes Absolute Auto 700 /uL (0-900); Monocytes Percent Auto 12.2 % (3-14); Neutrophils Absolute Auto 3400 /uL (1500-7000); Neutrophils Percent Auto 57.1 % (50-75); Platelet Count 228 X10^3/uL (150-400); Red Blood Cell Count 4.46 X10^6/uL (4.5-5.9)
[2022-05-16 12:20] LABS: INR 1.1 (0.9-1.3); Prothrombin Time 12.6 SECONDS (10.1-12.7)
[2022-05-16 12:23] LABS: PTT Partial Thromboplastin Tim 30 SECONDS (26.4-36.2)
[2022-05-16 12:26] LABS: BUN Creatinine Ratio 27.1 (6-22); Blood Urea Nitrogen 32 mg/dL (9-20); Calcium 8.3 mg/dL (8.4-10.2); Carbon Dioxide 25 mmol/L (22-32); Chloride 108 mmol/L (98-107); Creatine Kinase 109 U/L (55-170); Estimated Glomerular Filt Rate > 60 mL/min (>60); Glucose 95 mg/dL (80-110); Lipase 66 U/L (23-300); Sodium 137 mmol/L (137-145)
[2022-05-16 12:37] LABS: Troponin I < 0.012 ng/mL (0.01-0.034)
[2022-05-16 12:40] LABS: CKMB % Relative Index 1.5 % (1.5-5.0); Creatine Kinase MB 1.64 ng/mL (<2.37)
[2022-05-16 12:44] LABS: HEMOLYSIS 143 (0-50)
[2022-05-16 12:45] LABS: Potassium 5.2 mmol/L (3.4-5.1)
--- NOTE | 2022-05-16 14:04 | PC.NURSE ---
1355: Ambulated per Dr. Salazar request. Pt encouraged to us FWW. Pt ambulated in room and outside hallway, pt was steady on feet and denied chest pain, SOB or any pain. Dr. Salazar aware.
--- NOTE | 2022-05-16 14:25 | CM.SWNOTE ---
CUSTOMER SUCCESS SPECIALIST Note CUSTOMER SUCCESS SPECIALIST receives consult and meets with patient and daughter. Patient is 86 y/o male who presents to ED via EMS after syncope episode. Patient has hx of mild dementia and subacute CVA. Patient has Medicare and for Life. Patient's PCP is Dr. Ayala in [place]. Daughter reports that patient had scheduled PCP appt regarding needed medication change. Daughter states she will call PCP office and reschedule. Patient was prescribed Seraquil due to concern for agitation and stress and it was observed that the Seraquil was worsening symptoms and patient is in need of medication change. Patient has family member that is a LIVING COACH who resides with and patient in home, and Home instead caregivers come 3 days a week for four hours each day. Patient endorses that it is going pretty good and patient denies concerns. Daughter endorses that patient's caregivers support patient with cooking, cleaning and toileting. It is reported that [facility] are no longer in place. Daughter denies need for HH. Daughter writes note to CUSTOMER SUCCESS SPECIALIST endorsing that the family is looking into Memory Care unit for both patient and at LTC facility. Plan: Patient to d/c to home when medically clear, family to seek out LTC facility at Memory Care unit for patient. Patient to have PCP ED f/u appt next week. SUSANA Lara
== END 2022-05-16 14:54 | disposition home or self-care (01) ==
PROVIDERS: Emergency Provider Emergency Medicine; PCP Internal Medicine
DX: R55 Syncope and collapse (principal); R41.82 Altered mental status, unspecified; R07.9 Chest pain, unspecified
CPT/HCPCS: 70450; 80048; 81003; 82550; 82553; 82962; 83690; 84484; 85025; 85610; 85730; 93005; 99284; 99285